=== PATIENT | female | born 1960 | race Caucasian/White ===

== ENCOUNTER 2021-01-04 09:51 | Emergency (ER) | payer MEDICARE, SELFPAY ==
--- NOTE | 2021-01-04 11:20 | ED_ITS ---
HPI - Abdominal Pain General Chief Complaint: Abdominal Pain Stated Complaint: PELVIC PAIN CONSTIPATION Time Seen by Provider: 01/04/21 11:19 Source: patient Mode of arrival: ambulatory Limitations: no limitations History of Present Illness HPI narrative: 60 y/o female with history of irritable bowel syndrome, HTN, TEODORO, HLD, vertigo, fibromyalgia, gastritis who presents to the ED with lower abdominal pain and constipation for the last 1 week. She reports constant rectal pressure and lower abdominal pain with intermittent cramping and worsening pain. She last had a BM 1 week ago and it was normal. She developed pain 5 days ago. She contacted her GI doctor at [facility] yesterday when she still hadn't moved her bowels and he instructed her to take Milk of Magnesia. She was up at 2am this morning with cramping pain. She is passing gas. She reports some intermittnet nausea but no vomiting. MD elicited complaint: abdominal pain Pertinent past history: constipation Onset (ago): day(s) (5) Pain Consistency: constant Location: RLQ, LLQ and pelvis Severity: moderate Quality: cramping and aching Radiation: none Migration to: no migration Exacerbating factors: eating Relieving factors: nothing Context: history of similar episodes Associated symptoms: nausea and constipation Related Data Patient : No Allergies Allergy/AdvReac Type Severity Reaction Status Date / Time butalbital [From FIORINAL] Allergy Unknown HIVES Verified 01/04/21 11:25 doxycycline [DOXYCYCLINE] Allergy Unknown HIVES Verified 01/04/21 11:25 lorazepam [From ATIVAN] Allergy Unknown HIVES Verified 01/04/21 11:25 morphine [MORPHINE] Allergy Unknown HIVES Verified 01/04/21 11:25 Doxycycline Calcium Allergy Unknown Hives Uncoded 01/04/21 11:25 Review of Systems Review of Systems Constitutional: No Fever, + Chills (when in severe pain) ENT/Mouth: No sore throat, No Swallowing Difficulty Cardiovascular: No Chest Pain, No SOB, No Orthopnea, No Edema Respiratory: No Cough, No Sputum, No Wheezing, No dyspnea Gastrointestinal: + Nausea, No Vomiting, No Diarrhea, + abdominal Pain Genitourinary: No Dysuria, No Urinary Frequency, No Hematuria Musculoskeletal: No joint pain, No Myalgias Neuro: No Weakness, No Numbness, No Dizziness, No Headache Psych: + Anxiety/Panic, No Depression Heme/Lymph: No Bruising, No Lymphadenopathy Endocrine: No Polyuria, + Polydipsia Physical Exam Vital Signs: Vital Signs: Last Vital Signs Temp 98.7 F 01/04/21 11:26 Pulse 60 01/04/21 11:26 Resp 18 01/04/21 11:26 BP 129/75 01/04/21 11:26 Pulse Ox 99 01/04/21 11:26 Body Mass Index 34.9 Appearance: Alert. Oriented X3. No acute distress. Eyes: Pupils equal, round and reactive to light. ENT: Pharynx normal. Neck: Normal inspection. Neck supple. CVS: Normal heart rate and rhythm. Pulses normal. Respiratory: No respiratory distress. Breath sounds normal. Abdomen: normal inspection, well healed lower longitudial scar consistent with prior hysterectomy. Soft and with mild lower abdominal tenderness to deep palpation. normal +BS x4 XANDER: small external hemorrhoid, non-bleeding. normal sphincter tone, firm stool ball palpated deep in rectal vault, able to evacuate small amount of brown stool. Skin: Skin warm and dry. Normal skin color. Normal skin turgor. No rashes. Extremities: No lower extremity edema. Neuro: Oriented X 3. No motor deficit. No sensory deficit. Course Course Course Narrative: 60 y/o female presenting with constipation x1 week with lower abdominal pain. +flatus with normal bowel sounds on exam. Doubt small bowel obstruction. Will check basic labs, give Fleet enema and oral laxative/stool softners. Will reassess. Reevaluation(s) Reevaluation #1: Patient had a very large bowel movement and feels much better. Her pain is resolved. She was found to have K+ 3.2 - give oral repletion in the ED. She is stable for discharge and will f/u with her GI and PCP for further management. MDM - Abdominal Pain Lab Data Result diagrams: 01/04/21 12:19 01/04/21 12:19 Labs: Lab Results 01/04/21 Range/Units 12:19 WBC 13.0 H (4.8-10.8) X10*3/uL RBC 4.55 (4.20-5.50) X10*6/uL Hgb 13.9 (12.0-16.0) g/dl Hct 40.5 (37-47) % MCV 89.0 (80-98) fL MCH 30.5 (27.0-33.0) pg MCHC 34.3 (31.0-35.0) g/dl RDW 12.6 (11.0-16.0) % Plt Count 254 (160-400) X10*3/uL MPV 9.1 L (9.4-12.3) fL Immature Gran % (Auto) 0.3 (0.0-0.4) % Neut % (Auto) 60.2 (45-73) % Lymph % (Auto) 30.2 (20-40) % [place] % (Auto) 7.9 (2-11) % Eos % (Auto) 1.0 (0-4) % Baso % (Auto) 0.4 (0-2) % Lymph # (Auto) 3.9 (1.2-4.9) X10*3/uL [place] # (Auto) 1.0 (0.1-1.2) X10*3/uL Eos # (Auto) 0.1 (0.0-0.4) X10*3/uL Baso # (Auto) 0.1 (0.0-0.2) X10*3/uL Abs Immat Gran (auto) 0.04 H (0.00-0.03) X10*3/uL Absolute Neuts (auto) 7.8 (2.0-8.3) X10*3/uL Absolute Nucleated RBC 0.000 (0.0-0.012) X10*3/uL Nucleated RBC % (auto) 0.0 (0.0-0.2) /100WBC Discharge Plan Discharge Clinical Impression: Hypokalemia Constipation Qualifiers: Constipation type: unspecified constipation type Qualified Code(s): K59.00 - Constipation, unspecified Patient Disposition: Home, Self-Care Instructions: Constipation (ED), Hypokalemia (ED) Additional Instructions: Increase your fiber intake and drink plenty of water. Your potassium level with slightly low, you were given oral replacements while in the ER. Follow up with your doctor for routine blood work. Recommend starting Miralax 17 grams every morning. Follow up with your GI doctor. If you have recurrent abdominal pain or any other concerning symptoms come back to the ER for further evaluation. PMFSH Past Medical History Medical History (Updated 01/04/21 @ 13:06 by MARGARETTE Lozada) Fibromyalgia HTN (hypertension) IBS (irritable bowel syndrome) Sleep apnea Social History Social History Advance Directives: No Advance Directives Information Provided: No
[2021-01-04 11:26] VITALS: BP 129/75; PULSE 60; RESP 18; TEMP 37.1; O2SAT 99; BMI 34.9
[2021-01-04] MEDS: polyethylene glycoL 3350 17 GM POWD.PACK PO (12:24)
[2021-01-04] MEDS: Docusate Sodium 100 MG CAPSULE 200 MG PO (12:24)
[2021-01-04 12:25] LABS: Basophils Absolute Auto 0.1 X10*3/uL (0.0-0.2); Basophils Percent Auto 0.4 % (0-2); Eosinophils Absolute Auto 0.1 X10*3/uL (0.0-0.4); Hematocrit 40.5 % (37-47); Hemoglobin 13.9 g/dl (12.0-16.0); Imm Gran Abs Auto 0.04 X10*3/uL (0.00-0.03); Imm Gran Pct Auto 0.3 % (0.0-0.4); Lymphocytes Absolute Auto 3.9 X10*3/uL (1.2-4.9); Lymphocytes Percent Auto 30.2 % (20-40); MANUAL DIFF FLAG NO; Mean Corpuscular HGB Conc 34.3 g/dl (31.0-35.0); Mean Corpuscular Hemoglobin 30.5 pg (27.0-33.0); Mean Platelet Volume 9.1 fL (9.4-12.3); Monocytes Percent Auto 7.9 % (2-11); Neutrophils Absolute Auto 7.8 X10*3/uL (2.0-8.3); Neutrophils Percent Auto 60.2 % (45-73); Platelet Count 254 X10*3/uL (160-400); Red Blood Count 4.55 X10*6/uL (4.20-5.50); Red Cell Distribution Width 12.6 % (11.0-16.0)
[2021-01-04] MEDS: Sodium Phosphate,Mono-Dibasic 133 ML ENEMA PR (12:25)
[2021-01-04 12:54] LABS: Alanine Aminotransferase 20 U/L (0-31); Albumin Level 4.2 g/dL (3.5-5.0); Alkaline Phosphatase 81 U/L (39-117); Anion Gap 12 (12-20); Aspartate Amino Transferase 16 U/L (5-31); Bilirubin Direct 0.4 mg/dL (0.0-0.5); Bilirubin Total 0.9 mg/dL (0.0-1.0); Blood Urea Nitrogen 17 mg/dL (9-16); Calcium 9.1 mg/dL (8.4-10.2); Carbon Dioxide 30 mmol/L (22-29); Chloride 101 mmol/L (96-108); Creatinine Clr Calc Pharmacy 89.9; Estimated Glomerular Filt Rate > 60; Glucose Random 100 mg/dL (60-115); Magnesium 2.6 mg/dL (1.6-2.6); Potassium 3.2 mmol/L (3.3-5.1); Sodium 140 mmol/L (135-145); Total Protein 6.9 g/dL (6.5-8.0)
[2021-01-04] MEDS: Potassium Chloride ER 20 MEQ TAB.ER.PRT 60 MEQ PO (13:32)
== END 2021-01-04 13:35 | disposition home or self-care (01) ==
PROVIDERS: Physician Assistant; Emergency Provider Emergency Medicine Emergency Medical Services; PCP Internal Medicine
DX: E87.6 Hypokalemia (principal); K59.00 Constipation, unspecified; M79.7 Fibromyalgia; R10.2 Pelvic and perineal pain; G47.33 Obstructive sleep apnea (adult) (pediatric); I10 Essential (primary) hypertension
CPT/HCPCS: 36415; 80048; 80076; 83735; 85025; 99283; 99284

== ENCOUNTER 2021-01-29 08:22 | Emergency (ER) | payer MEDICARE, SELFPAY ==
--- NOTE | ~2021-01-29 | XR_ITS ---
EXAMINATION: XR CHEST CLINICAL INFORMATION: Chest pain. COMPARISON: Chest done on 03/14/2020. TECHNIQUE: Frontal view of the chest was obtained. FINDINGS: Linear pleural parenchymal opacity at left lung base, appears similar to prior study. The remainder of the lung irby appear clear. The cardiac mediastinal silhouette is within normal limit. There is no pleural effusion or pneumothorax present. The visualized upper abdomen is unremarkable. XR/XR chest 1V IMPRESSION: No radiographic evidence of any acute cardiopulmonary disease, essentially remains stable since 03/14/2020.
[2021-01-29 08:34] VITALS: BP 151/77; BP 178/92; PULSE 54; PULSE 60; RESP 18; TEMP 36.8; O2SAT 98; O2SAT 99; BMI 35.7
[2021-01-29 08:47] LABS: Glucose, Whole Blood 121 mg/dL (60-115)
--- NOTE | 2021-01-29 08:50 | ECG_ITS ---
Test Reason : SOB Blood Pressure : / mmHG Vent. Rate : 051 BPM Atrial Rate : 051 BPM P-R Int : 168 ms QRS Dur : 090 ms QT Int : 458 ms P-R-T Axes : 011 -19 -08 degrees QTc Int : 422 ms Sinus bradycardia Nonspecific ST and T wave abnormality Abnormal ECG When compared with ECG of 14-MAR-2020 09:27, No significant change was found Referred By: Denae Barr Electronically Signed By:HERRERA MARQUES
[2021-01-29 08:59] VITALS: BP 130/74; PULSE 52
[2021-01-29 09:00] VITALS: BP 129/75; PULSE 53
[2021-01-29 09:01] VITALS: BP 136/79; PULSE 53
[2021-01-29 09:11] VITALS: BP 136/79; PULSE 54; RESP 18; O2SAT 99
[2021-01-29 09:11] LABS: MANUAL DIFF FLAG NO
[2021-01-29 09:14] LABS: Basophils Percent Auto 0.3 % (0-2); Eosinophils Absolute Auto 0.1 X10*3/uL (0.0-0.4); Eosinophils Percent Auto 0.8 % (0-4); Hematocrit 42.6 % (37-47); Hemoglobin 14.7 g/dl (12.0-16.0); Imm Gran Abs Auto 0.04 X10*3/uL (0.00-0.03); Imm Gran Pct Auto 0.4 % (0.0-0.4); Lymphocytes Percent Auto 33.3 % (20-40); Mean Corpuscular HGB Conc 34.5 g/dl (31.0-35.0); Mean Corpuscular Hemoglobin 30.7 pg (27.0-33.0); Mean Corpuscular Volume 88.9 fL (80-98); Mean Platelet Volume 9.2 fL (9.4-12.3); Monocytes Absolute Auto 0.8 X10*3/uL (0.1-1.2); Monocytes Percent Auto 8.6 % (2-11); Neutrophils Absolute Auto 5.2 X10*3/uL (2.0-8.3); Neutrophils Percent Auto 56.6 % (45-73); Platelet Count 244 X10*3/uL (160-400); Red Blood Count 4.79 X10*6/uL (4.20-5.50); Red Cell Distribution Width 12.8 % (11.0-16.0); White Blood Count 9.1 X10*3/uL (4.8-10.8)
[2021-01-29 09:15] LABS: Glucose Urine UA NEG (NEG); Leukocyte Esterase Urine NEG (NEG); Nitrite Urine NEG (NEG); PH 6.5 (5.0-8.0); Specific Gravity - Urine <= 1.005 (1.005-1.025); Urine Blood NEG (NEG); Urine Ketones NEG (NEG); Urine Protein NEG (NEG-TRACE)
[2021-01-29 09:17] LABS: Appearance Urine CLEAR; Color Urine STRAW
--- NOTE | 2021-01-29 09:20 | ED_ITS ---
HPI - General Adult General Chief complaint: General Medical Stated complaint: htn Time Seen by Provider: 01/29/21 08:36 Source: patient and EMS Mode of arrival: EMS History of Present Illness HPI narrative: 60-year-old female with a past medical history of fibromyalgia, hypertension, IBS, sleep apnea, BIBA complaining of shortness of breath, mild chest tightness, nausea and heaviness in arms/shoulders S/P getting off treadmill last night. Also reports polydipsia and urinary frequency. Reports generalized fatigue. Denies fever, cough, abdominal pain, vomiting, diarrhea, dysuria/hematuria, numbness/tingling, headache, vision changes Onset (ago): day(s) Related Data Allergies Allergy/AdvReac Type Severity Reaction Status Date / Time butalbital [From FIORINAL] Allergy Unknown HIVES Verified 01/04/21 11:25 doxycycline [DOXYCYCLINE] Allergy Unknown HIVES Verified 01/04/21 11:25 lorazepam [From ATIVAN] Allergy Unknown HIVES Verified 01/04/21 11:25 morphine [MORPHINE] Allergy Unknown HIVES Verified 01/04/21 11:25 Doxycycline Calcium Allergy Unknown Hives Uncoded 01/04/21 11:25 Review of Systems Review of Systems: Constitutional: No Fever, No Chills, No Night Sweats, + Fatigue, No Malaise Eyes: No Vision Changes Cardiovascular: + Chest Pain, + SOB, No Dyspnea on Exertion, No Orthopnea, No Edema, + Palpitations Respiratory: No Cough, No Sputum Gastrointestinal: + Nausea, No Vomiting, No Diarrhea, No Constipation, No Abdominal pain Genitourinary: No irregular bleeding, No Dysuria,+Urinary Frequency, No Hematuria,+ Urgency, No Flank Pain, No Urinary Flow Changes, No Hesitancy Musculoskeletal: No joint pain, No Myalgias, No Joint Swelling Skin: No Skin Lesions, No rash Neuro: + Weakness, No Numbness, No Paresthesias, No Loss of Consciousness, + off balance, No Headache Yes all other systems are reviewed and are negative [facility] Past Medical History Attestation statement: The following information was validated with the patient. Medical History (Updated 01/29/21 @ 11:01 by MARGARETTE Hong) Fibromyalgia HTN (hypertension) IBS (irritable bowel syndrome) Sleep apnea Social History Social History Alcohol intake: never Smoking Status: Unknown if ever smoked Use of substances other than those prescribed or required for medical reasons: No Advance Directives: No Advance Directives Information Provided: No Physical Exam Vital Signs: Vital Signs: Last Vital Signs Temp 98.3 F 01/29/21 08:34 Pulse 52 01/29/21 10:15 Resp 16 01/29/21 10:15 BP 160/70 H 01/29/21 10:15 Pulse Ox 96 01/29/21 10:15 Body Mass Index 35.7 Const: General: cooperative, healthy appearing, comfortable, no acute distress and well developed Orientation/consciousness: patient oriented x3 Limitations: no limitations HENMT: Head: Yes normal to inspection Ears: hearing grossly normal bilaterally General nose exam: Normal external nose present Face and sinus: Yes normal facial exam Eyes: General: appearance normal, both eyes and all related structures Pupils: Equal, round and reactive pupils present EOM: EOMs intact bilaterally Neck: Neck: Yes normal visual inspection and Yes no meningeal signs Resp: Effort & Inspection: normal respiratory effort Auscultation: clear to auscultation bilaterally, no rales, no rhonchi and no wheezes Cardio: Rate: regular rate Heart sounds: S1 normal heart sound present and S2 normal heart sound present GI: Inspection: Yes normal to inspection Palpation (GI): Soft to palpation, nontender, no guarding and not rigid Skin: Rashes: no rashes Wounds: no wounds Neuro: General: patient oriented x3, gait normal, tone normal, moves all extremities, no meningeal signs, no focal motor deficits and CN's II-XI intact bilaterally Cranial nerves: Yes Equal, round and reactive pupils present Gait exam (Neuro): Normal gait present Motor exam (neuro): 5/5 motor strength present throughout, Pronator motor function not present and no tremor noted Coordination: [id number] test normal and Romberg test negative Extrem: General: Yes normal to inspection, Yes no pedal edema and Yes no calf tenderness Course Course Course Narrative: -labs unremarkable. Troponin negative. Urine negative. COVID-19/influenza/RSV negative XR chest 1V IMPRESSION: No radiographic evidence of any acute cardiopulmonary disease, essentially remains stable since 03/14/2020. -orthostatic vital signs negative. -patient became very agitated/upset after I discussed her normal labs and imaging without having diagnosis for her symptoms. I discussed do not always find diagnosis in the ED however rule out life-threatening/dangerous diagnosis'. I offered repeat troponin to rule out ACS, although unllikely as symptom onset was greater than 6 hours, patient was agreeable but would like to be discharged immediately after lab draw and not wait for results. I will call her if lab result is abnormal Patient came up to provider desk after discharge instructions discussed very upset, ripped out IV, refusing to sign stormed out of ED -Lab and imaging results discussed with patient including worrisome signs and symptoms and strict return precautions and close follow-up with PCP. Medical Decision Making MDM Narrative Medical decision making narrative: 60-year-old female with a past medical history of fibromyalgia, hypertension, IBS, sleep apnea, BIBA complaining of shortness of breath, mild chest tightness, nausea and heaviness in arms/shoulders S/P getting off treadmill last night. Also reports polydipsia and urinary frequency. On exam VSS, NAD/well-appearing, exam nonfocal. Concern for ACS vs arrhythmia/metabolic abnormalities. Unlikely infectious etiology/PE or CVA Plan: EKG, labs, UA, CXR, orthostatics, re-evaluated Lab Data Result diagrams: 01/29/21 09:06 01/29/21 09:06 Labs: Lab Results 01/29/21 01/29/21 01/29/21 Range/Units 08:43 09:01 09:06 WBC 9.1 (4.8-10.8) X10*3/uL RBC 4.79 (4.20-5.50) X10*6/uL Hgb 14.7 (12.0-16.0) g/dl Hct 42.6 (37-47) % MCV 88.9 (80-98) fL MCH 30.7 (27.0-33.0) pg MCHC 34.5 (31.0-35.0) g/dl RDW 12.8 (11.0-16.0) % Plt Count 244 (160-400) X10*3/uL MPV 9.2 L (9.4-12.3) fL Immature Gran % (Auto) 0.4 (0.0-0.4) % Neut % (Auto) 56.6 (45-73) % Lymph % (Auto) 33.3 (20-40) % [place] % (Auto) 8.6 (2-11) % Eos % (Auto) 0.8 (0-4) % Baso % (Auto) 0.3 (0-2) % Lymph # (Auto) 3.0 (1.2-4.9) X10*3/uL [place] # (Auto) 0.8 (0.1-1.2) X10*3/uL Eos # (Auto) 0.1 (0.0-0.4) X10*3/uL Baso # (Auto) 0.0 (0.0-0.2) X10*3/uL Abs Immat Gran (auto) 0.04 H (0.00-0.03) X10*3/uL Absolute Neuts (auto) 5.2 (2.0-8.3) X10*3/uL Absolute Nucleated RBC 0.000 (0.0-0.012) X10*3/uL Nucleated RBC % (auto) 0.0 (0.0-0.2) /100WBC Hold Blue Top Sodium (135-145) mmol/L Potassium (3.3-5.1) mmol/L Chloride (96-108) mmol/L Carbon Dioxide (22-29) mmol/L Anion Gap (12-20) BUN (9-16) mg/dL Creatinine (0.5-1.4) mg/dL Estim Creat Clear Calc Estimated GFR POC Glucose 121 H (60-115) mg/dL Random Glucose (60-115) mg/dL Calcium (8.4-10.2) mg/dL Magnesium (1.6-2.6) mg/dL Total Bilirubin (0.0-1.0) mg/dL Direct Bilirubin (0.0-0.5) mg/dL AST (5-31) U/L ALT (0-31) U/L Alkaline Phosphatase (39-117) U/L Troponin I High Sens (<3.5-17.0) ng/L B-Natriuretic Peptide (<100) pg/mL Total Protein (6.5-8.0) g/dL Albumin (3.5-5.0) g/dL TSH (0.32-4.0) uIU/mL Urine Color STRAW Urine Appearance CLEAR Urine pH 6.5 (5.0-8.0) Ur Specific [place] <= 1.005 (1.005-1.025) Urine Protein NEG (NEG-TRACE) MG/DL Urine Glucose (UA) NEG (NEG) MG/DL Urine Ketones NEG (NEG) MG/DL Urine Blood NEG (NEG) Urine Nitrite NEG (NEG) Ur Leukocyte Esterase NEG (NEG) Coronavirus (PCR) (Negative) Influenza Type A (PCR) (Negative) Influenza Type B (PCR) (Negative) RSV RNA Qual (PCR) (Negative) 01/29/21 01/29/21 01/29/21 Range/Units 09:06 09:06 09:06 WBC (4.8-10.8) X10*3/uL RBC (4.20-5.50) X10*6/uL Hgb (12.0-16.0) g/dl Hct (37-47) % MCV (80-98) fL MCH (27.0-33.0) pg MCHC (31.0-35.0) g/dl RDW (11.0-16.0) % Plt Count (160-400) X10*3/uL MPV (9.4-12.3) fL Immature Gran % (Auto) (0.0-0.4) % Neut % (Auto) (45-73) % Lymph % (Auto) (20-40) % [place] % (Auto) (2-11) % Eos % (Auto) (0-4) % Baso % (Auto) (0-2) % Lymph # (Auto) (1.2-4.9) X10*3/uL [place] # (Auto) (0.1-1.2) X10*3/uL Eos # (Auto) (0.0-0.4) X10*3/uL Baso # (Auto) (0.0-0.2) X10*3/uL Abs Immat Gran (auto) (0.00-0.03) X10*3/uL Absolute Neuts (auto) (2.0-8.3) X10*3/uL Absolute Nucleated RBC (0.0-0.012) X10*3/uL Nucleated RBC % (auto) (0.0-0.2) /100WBC Hold Blue Top SEE NOTE Sodium 139 (135-145) mmol/L Potassium 3.4 (3.3-5.1) mmol/L Chloride 101 (96-108) mmol/L Carbon Dioxide 29 (22-29) mmol/L Anion Gap 12 (12-20) BUN 15 (9-16) mg/dL Creatinine 0.78 (0.5-1.4) mg/dL Estim Creat Clear Calc 86.4 Estimated GFR > 60 POC Glucose (60-115) mg/dL Random Glucose 110 (60-115) mg/dL Calcium 9.6 (8.4-10.2) mg/dL Magnesium 1.9 (1.6-2.6) mg/dL Total Bilirubin 1.0 (0.0-1.0) mg/dL Direct Bilirubin 0.3 (0.0-0.5) mg/dL AST 22 (5-31) U/L ALT 30 (0-31) U/L Alkaline Phosphatase 83 (39-117) U/L Troponin I High Sens < 3.5 (<3.5-17.0) ng/L B-Natriuretic Peptide 12 (<100) pg/mL Total Protein 7.3 (6.5-8.0) g/dL Albumin 4.5 (3.5-5.0) g/dL TSH 1.77 (0.32-4.0) uIU/mL Urine Color Urine Appearance Urine pH (5.0-8.0) Ur Specific [place] (1.005-1.025) Urine Protein (NEG-TRACE) MG/DL Urine Glucose (UA) (NEG) MG/DL Urine Ketones (NEG) MG/DL Urine Blood (NEG) Urine Nitrite (NEG) Ur Leukocyte Esterase (NEG) Coronavirus (PCR) (Negative) Influenza Type A (PCR) (Negative) Influenza Type B (PCR) (Negative) RSV RNA Qual (PCR) (Negative) 01/29/21 Range/Units 09:06 WBC (4.8-10.8) X10*3/uL RBC (4.20-5.50) X10*6/uL Hgb (12.0-16.0) g/dl Hct (37-47) % MCV (80-98) fL MCH (27.0-33.0) pg MCHC (31.0-35.0) g/dl RDW (11.0-16.0) % Plt Count (160-400) X10*3/uL MPV (9.4-12.3) fL Immature Gran % (Auto) (0.0-0.4) % Neut % (Auto) (45-73) % Lymph % (Auto) (20-40) % [place] % (Auto) (2-11) % Eos % (Auto) (0-4) % Baso % (Auto) (0-2) % Lymph # (Auto) (1.2-4.9) X10*3/uL [place] # (Auto) (0.1-1.2) X10*3/uL Eos # (Auto) (0.0-0.4) X10*3/uL Baso # (Auto) (0.0-0.2) X10*3/uL Abs Immat Gran (auto) (0.00-0.03) X10*3/uL Absolute Neuts (auto) (2.0-8.3) X10*3/uL Absolute Nucleated RBC (0.0-0.012) X10*3/uL Nucleated RBC % (auto) (0.0-0.2) /100WBC Hold Blue Top Sodium (135-145) mmol/L Potassium (3.3-5.1) mmol/L Chloride (96-108) mmol/L Carbon Dioxide (22-29) mmol/L Anion Gap (12-20) BUN (9-16) mg/dL Creatinine (0.5-1.4) mg/dL Estim Creat Clear Calc Estimated GFR POC Glucose (60-115) mg/dL Random Glucose (60-115) mg/dL Calcium (8.4-10.2) mg/dL Magnesium (1.6-2.6) mg/dL Total Bilirubin (0.0-1.0) mg/dL Direct Bilirubin (0.0-0.5) mg/dL AST (5-31) U/L ALT (0-31) U/L Alkaline Phosphatase (39-117) U/L Troponin I High Sens (<3.5-17.0) ng/L B-Natriuretic Peptide (<100) pg/mL Total Protein (6.5-8.0) g/dL Albumin (3.5-5.0) g/dL TSH (0.32-4.0) uIU/mL Urine Color Urine Appearance Urine pH (5.0-8.0) Ur Specific [place] (1.005-1.025) Urine Protein (NEG-TRACE) MG/DL Urine Glucose (UA) (NEG) MG/DL Urine Ketones (NEG) MG/DL Urine Blood (NEG) Urine Nitrite (NEG) Ur Leukocyte Esterase (NEG) Coronavirus (PCR) NEGATIVE (Negative) Influenza Type A (PCR) NEGATIVE (Negative) Influenza Type B (PCR) NEGATIVE (Negative) RSV RNA Qual (PCR) NEGATIVE (Negative) ECG Data Attestation: I personally reviewed and interpreted this ECG as follows: Prior ECG tracings: available for review Interpretation: EKG sinus bradycardia with rate of 51. Unchanged from priors. No STEMI Discharge Plan Discharge Clinical Impression: Shortness of breath, Chest tightness Patient Disposition: Home, Self-Care Instructions: Shortness of Breath (ED) Additional Instructions: Your blood work and chest x-ray were reassuring today in the ED. You tested negative for COVID-19. It is important that he follow up with her primary care doctor's well as Cardiology. If her symptoms persist or worsen, you have constant worsening shortness of breath, chest discomfort, or heaviness feeling in her arms return to the ED immediately. Make sure staying hydrated at home. Referrals: Jude Melo MD [Primary Care Provider] - 2 days Hamlet Alexander MD [Physician] - 5 days
[2021-01-29] MEDS: 0.9 % Sodium Chloride 1,000 ML 999 ML IVCONT (09:37)
[2021-01-29 09:43] LABS: Alanine Aminotransferase 30 U/L (0-31); Albumin Level 4.5 g/dL (3.5-5.0); Alkaline Phosphatase 83 U/L (39-117); Anion Gap 12 (12-20); Aspartate Amino Transferase 22 U/L (5-31); Bilirubin Direct 0.3 mg/dL (0.0-0.5); Blood Urea Nitrogen 15 mg/dL (9-16); Calcium 9.6 mg/dL (8.4-10.2); Carbon Dioxide 29 mmol/L (22-29); Chloride 101 mmol/L (96-108); Creatinine Clr Calc Pharmacy 86.4; Estimated Glomerular Filt Rate > 60; Glucose Random 110 mg/dL (60-115); Magnesium 1.9 mg/dL (1.6-2.6); Potassium 3.4 mmol/L (3.3-5.1); Sodium 139 mmol/L (135-145); Total Protein 7.3 g/dL (6.5-8.0)
[2021-01-29 09:49] LABS: B Type Natriuretic Peptide 12 pg/mL (<100); Troponin-I High Sensitivity < 3.5 ng/L (<3.5-17.0)
[2021-01-29 10:11] LABS: Influenza A PCR NEGATIVE (Negative); Influenza B PCR NEGATIVE (Negative); Resp Syncy Virus RNA Qual PCR NEGATIVE (Negative); SARS COV2 PCR INHOUSE NEGATIVE (Negative)
[2021-01-29 10:15] VITALS: BP 160/70; PULSE 52; RESP 16; O2SAT 96
[2021-01-29 10:15] LABS: TSH reflex Free T4 1.77 uIU/mL (0.32-4.0)
[2021-01-29] MEDS: ondansetron HCL 4 MG/2 ML VIAL IVPUSH (11:17)
--- NOTE | 2021-01-29 11:52 | PC.NURSE ---
Pt asking to leave before trop. results, c/o continued nausea and headache- offered further medication to help symptoms, declined stated You guys can never figure out whats wrong with me...I'll take me nausea and pain to my home .Encouraged to stay. Pt is in no apparent distress, skin w/p/d, rr even and unlabored, moving all extremities, no active vomiting, aox4. Provider aware of pt status. Pending discharge.
--- NOTE | 2021-01-29 12:12 | PC.NURSE ---
This nurse went into patients room with her discharge paperwork. When discussing discharge instructions patient became agitated removed her IV on her own and refused to sign discharge paperwork. Patient went up to provider to discuss discharge paperwork then left department to outside of hospital. Patient appeared in no apparent distress, respirations even and unlabored. Gait steady while leaving.
[2021-01-29 12:29] LABS: Troponin-I High Sensitivity < 3.5 ng/L (<3.5-17.0)
== END 2021-01-29 12:16 | disposition home or self-care (01) ==
PROVIDERS: Physician Assistant; Emergency Provider Emergency Medicine; PCP Internal Medicine
DX: R06.02 Shortness of breath (principal); R07.9 Chest pain, unspecified; Z20.822 Contact with and (suspected) exposure to COVID-19; I10 Essential (primary) hypertension
CPT/HCPCS: 0241U; 36415; 71045; 80048; 80076; 81003; 82947; 83735; 83880; 84443; 84484; 85025; 93005; 96361; 96374; 99284; J2405

== ENCOUNTER 2021-05-08 15:28 | Emergency (ER) | payer MEDICARE, SELFPAY ==
--- NOTE | ~2021-05-08 | XR_ITS ---
EXAMINATION: XR FOOT, LEFT CLINICAL INFORMATION: Blunt trauma to the left foot. Bruised fourth and fifth toes. COMPARISON: None TECHNIQUE: AP, lateral, and oblique views of the left foot. FINDINGS: There is no evidence of acute fracture at this time. Bones are in normal alignment. Mild soft tissue swelling is noted over the fifth toe and fifth MTP joint region. No significant abnormality of the bones or joints is demonstrated. No evidence of soft tissue air or radiopaque foreign body. XR/XR foot LT min 3V IMPRESSION: No evidence of acute osseous abnormality in the left foot with specific attention to the fourth and fifth toes at this time.
[2021-05-08 15:31] VITALS: BP 106/63; PULSE 66; RESP 18; TEMP 36.6; O2SAT 95; BMI 36.0
--- NOTE | 2021-05-08 16:25 | ED.LOWEXIN ---
HPI - Extremity Injury (Lower) General Chief Complaint: Extremity Injury, Lower Stated Complaint: foot injury Time Seen by Provider: 05/08/21 16:25 History of Present Illness HPI Narrative: Patient complains of left foot pain as well as left 4th and 5th toe pain after dropping a weight on the left foot and toes this morning, no numbness weakness or tingling Related Data Allergies Allergy/AdvReac Type Severity Reaction Status Date / Time butalbital [From FIORINAL] Allergy Unknown HIVES Verified 01/04/21 11:25 doxycycline [DOXYCYCLINE] Allergy Unknown HIVES Verified 01/04/21 11:25 lorazepam [From ATIVAN] Allergy Unknown HIVES Verified 01/04/21 11:25 morphine [MORPHINE] Allergy Unknown HIVES Verified 01/04/21 11:25 Doxycycline Calcium Allergy Unknown Hives Uncoded 01/04/21 11:25 Review of Systems Review of Systems: Positive for left foot and left 4th and 5th toe pain Negatives are no fever no chills no fainting no feeling faint no headache no neck pain no back pain no numbness weakness or tingling no skin rash no laceration Yes all other systems are reviewed and are negative [facility] Past Medical History Source: nursing notes reviewed Medical History (Updated 05/09/21 @ 00:01 by Background Datrino) Fibromyalgia HTN (hypertension) IBS (irritable bowel syndrome) Sleep apnea Social History Social History Alcohol intake: never Advance Directives: Yes Advance Directives Information Provided: No Advance Directives on File: No Patient : No Physical Exam Vital Signs: Vital Signs: Last Vital Signs Temp 97.8 F 05/08/21 15:31 Pulse 66 05/08/21 15:31 Resp 18 05/08/21 15:31 BP 106/63 05/08/21 15:31 Pulse Ox 95 05/08/21 15:31 Body Mass Index 36.0 General appearance no distress Head is normocephalic atraumatic Neck is supple Respiratory no acute distress Extremities the left foot has tenderness with some ecchymosis over the distal dorsal foot and left 5th and 4th toes are tender with mild ecchymoses, they have full range of motion and neurovascular intact distal and skin is normal without wound Other extremities normal Course Course Course Narrative: X-ray was negative of left foot and toes, patient is ambulatory with a limp and refused crutches She is discharged and will follow with Orthopedics if needed Discharge Plan Discharge Clinical Impression: Contusion of foot, left Patient Disposition: Home, Self-Care Additional Instructions: X-rays were negative and did not show any fracture A bruised foot will usually improved within several days If not improving or any concerns follow with orthopedist Return to the ER any time and any changed or worse condition Referrals: Dwight Sutherland MD [Physician] - 2 days (Left foot injury) Interventions: ED Discharge Assessment Last Done: 05/08/21 16:51 Discharge Date/Time: 05/08/21 16:51
== END 2021-05-08 16:51 | disposition home or self-care (01) ==
PROVIDERS: Emergency Provider Emergency Medicine Emergency Medical Services; PCP Internal Medicine
DX: S90.32XA Contusion of left foot, initial encounter (principal); I10 Essential (primary) hypertension; X58.XXXA Exposure to other specified factors, initial encounter; Y93.9 Activity, unspecified; Y92.9 Unspecified place or not applicable; Y99.9 Unspecified external cause status
CPT/HCPCS: 73630; 99283

== ENCOUNTER 2021-08-30 01:55 | Emergency (ER) | payer MEDICARE, SELFPAY ==
--- NOTE | ~2021-08-30 | XR_ITS ---
EXAMINATION: XR CHEST CLINICAL INFORMATION: Cough COMPARISON: 01/29/2021 TECHNIQUE: 2 views of the chest were obtained. FINDINGS: The lungs are well expanded. There is no focal consolidation, edema, or effusion. No pneumothorax. The cardiomediastinal silhouette is within normal limits. No acute osseous abnormality. XR/XR chest 2V IMPRESSION: Clear lungs.
[2021-08-30 01:58] VITALS: BP 133/78; PULSE 58; RESP 16; TEMP 37.1; O2SAT 99; BMI 36.0
--- NOTE | 2021-08-30 02:59 | ED_ITS ---
HPI - Back Pain/Injury General Chief Complaint: Back Pain/Injury Stated Complaint: back & neck pain Time Seen by Provider: 08/30/21 02:45 Source: patient Mode of arrival: ambulatory History of Present Illness HPI Narrative: 60-year-old female with atraumatic presentation of mid back and shoulder pain after driving approximately 200 miles yesterday. She denies that this is been associated with any fever, chills, sore throat, new cough and states that she has had similar problems before. She denies any headache, dizziness, shortness of breath, chest pain/palpitations. She is up-to-date on COVID-19 vaccine. Related Data Previous Rx's Medication Instructions Recorded cyclobenzaprine 10 mg tablet 10 mg PO BEDTIME PRN #3 tab 08/30/21 ketorolac 10 mg tablet 10 mg PO Q6H PRN 5 Days #20 tab 08/30/21 Allergies Allergy/AdvReac Type Severity Reaction Status Date / Time butalbital [From FIORINAL] Allergy Unknown HIVES Verified 08/30/21 01:58 doxycycline [DOXYCYCLINE] Allergy Unknown HIVES Verified 08/30/21 01:58 lorazepam [From ATIVAN] Allergy Unknown HIVES Verified 08/30/21 01:58 morphine [MORPHINE] Allergy Unknown HIVES Verified 08/30/21 01:58 Doxycycline Calcium Allergy Unknown Hives Uncoded 01/04/21 11:25 Review of Systems Review of Systems: Pertinent positives and negatives as stated in HPI 10 point review of systems is otherwise negative. PMFSH Past Medical History Source: nursing notes reviewed Medical History Fibromyalgia HTN (hypertension) IBS (irritable bowel syndrome) Sleep apnea Social History Social History Alcohol intake: never Advance Directives: No Advance Directives Information Provided: Yes Physical Exam Vital Signs: Vital Signs: Last Vital Signs Temp 98.7 F 08/30/21 01:58 Pulse 58 08/30/21 01:58 Resp 16 08/30/21 01:58 BP 133/78 08/30/21 01:58 Pulse Ox 99 08/30/21 01:58 Body Mass Index 36.0 VITAL SIGNS: Reviewed. GENERAL: Well developed, well nourished, in no acute distress. HEAD: Normocephalic/atraumatic EYES: PERRLA, EOMI OROPHARYNX: no oral lesions noted, posterior pharynx clear NECK: Supple, no adenopathy LUNGS: Normal breath sounds. No adventitious sounds or accessory muscle use. SpO2<99> CARDIOVASCULAR: Regular rate and rhythm without noted murmurs, no JVD or lower extremity edema. ABDOMEN: Soft, non-tender, non-distended with bowel sounds BACK: There is no midline vertebral tenderness or step-offs noted, there is no thoracic paraspinal tenderness on palpation, however there is tenderness on palpation across bilateral shoulders into base of neck SKIN: Inspection of the skin reveals no rashes, NEUROLOGIC: Alert and oriented x 4. Strength and sensation to light touch were grossly intact x 4. Course Course Course Narrative: 60-year-old female with history and clinical presentation consistent with muscle strain/spasm likely secondary to long car ride and low clinical suspicion for pneumonia/PE. Patient was provided with combination analgesics as well as muscle relaxant. On re-evaluation and review of all investigations patient is feeling much better and there are no acute findings. She will be discharged home in stable condition with medications for muscle spasm. Discharge Plan Discharge Clinical Impression: Muscle spasm Patient Disposition: Home, Self-Care Instructions: Muscle Spasm (ED) Additional Instructions: Follow-up with your primary care provider in the next 2-3 days for re- evaluation. Tylenol 1000 mg, orally, every 6 hours as needed for pain control. Do not exceed 4000 mg within 24 hours. Lidocaine patch, these are available [id number] and should be apply to area of maximal tenderness as directed on the outside packaging. Return to the ER for acute worsening of symptoms. Prescriptions: New ketorolac 10 mg tablet 10 mg PO Q6H PRN (Reason: pain) 5 Days Qty: 20 RF: 0 cyclobenzaprine 10 mg tablet 10 mg PO BEDTIME PRN (Reason: muscle spasm) Qty: 3 RF: 0 Referrals: Jude Melo MD [Primary Care Provider] - 2 days
[2021-08-30] MEDS: Acetaminophen 325 MG TABLET 975 MG PO (03:04)
[2021-08-30] MEDS: Cyclobenzaprine HCl 5 MG TABLET PO (03:05)
[2021-08-30] MEDS: Ketorolac Tromethamine 15 MG/ML VIAL IM (03:06)
[2021-08-30] MEDS: Lidocaine 4 % Patch ADH..PATCH 1 PATCH TRANSDERMA (03:09)
== END 2021-08-30 03:53 | disposition home or self-care (01) ==
PROVIDERS: Emergency Provider Student in an Organized Health Care Education/Training Program; PCP Internal Medicine
DX: M62.830 Muscle spasm of back (principal); R07.89 Other chest pain; M54.50 Low back pain, unspecified; M54.2 Cervicalgia; Z79.899 Other long term (current) drug therapy
CPT/HCPCS: 71046; 96372; 99283; 99284; J1885

== ENCOUNTER 2021-09-01 10:54 | Outpatient (REF) | payer MEDICARE, SELFPAY | END 2021-09-01 10:55 | disposition home or self-care (01) | LOC: HO.LAB 10:54 | PROVIDERS: PCP Internal Medicine; Visit Provider Internal Medicine | DX: Z20.822 Contact with and (suspected) exposure to COVID-19 (principal) | CPT/HCPCS: C9803; U0003; U0005 ==

== ENCOUNTER 2021-09-07 19:39 | Emergency (ER) | payer MEDICARE, SELFPAY ==
--- NOTE | 2021-09-07 | ECG_ITS ---
Test Reason : DIZZYNESS Blood Pressure : / mmHG Vent. Rate : 053 BPM Atrial Rate : 053 BPM P-R Int : 174 ms QRS Dur : 096 ms QT Int : 476 ms P-R-T Axes : 016 -23 -13 degrees QTc Int : 446 ms Sinus bradycardia Left axis deviation Nonspecific T wave abnormality Abnormal ECG When compared with ECG of 29-JAN-2021 08:54, No significant change was found Referred By: Generic ED Physician Electronically Signed By:ITZEL MATTSON MD
--- NOTE | ~2021-09-07 | XR_ITS ---
EXAMINATION: XR CHEST CLINICAL INFORMATION: Chest pain COMPARISON: Chest x-ray August 30, 2021 TECHNIQUE: Frontal portable view of the chest was obtained. 9:08 PM FINDINGS: Lung volume low. There is no acute abnormality. No pulmonary vascular congestion. No focal consolidation, pleural effusion or pneumothorax. Cardiac and mediastinal contours are normal. XR/XR chest 1V IMPRESSION: No acute abnormality of chest
[2021-09-07 19:46] VITALS: BP 164/86; PULSE 54; RESP 16; TEMP 36.8; O2SAT 96
[2021-09-07 19:52] VITALS: BP 164/86; PULSE 53; RESP 16; TEMP 36.9; O2SAT 97; BMI 38.9
[2021-09-07 19:58] VITALS: PULSE 60; O2SAT 98
[2021-09-07 20:00] VITALS: BP 171/80; PULSE 52
[2021-09-07 20:11] VITALS: BP 161/77; PULSE 55
[2021-09-07 20:12] VITALS: BP 128/76; PULSE 60
--- NOTE | 2021-09-07 20:39 | ED.GENADULT ---
HPI - General Adult General Chief complaint: Dizziness Stated complaint: COVID+/DIZZINESS Time Seen by Provider: 09/07/21 19:53 Source: patient Mode of arrival: ambulatory Limitations: no limitations History of Present Illness HPI narrative: nausea, weakness, since this afternoon. Patient was COVID positive on the 7th after exposure, but this is the first time she is feeling sick since becoming positive. Onset (ago): hour(s) Severity: moderate Associated symptoms: fever/chills, loss of appetite, nausea/vomiting and weakness Related Data Previous Rx's Medication Instructions Recorded cyclobenzaprine 10 mg tablet 10 mg PO BEDTIME PRN #3 tab 08/30/21 ketorolac 10 mg tablet 10 mg PO Q6H PRN 5 Days #20 tab 08/30/21 Allergies Allergy/AdvReac Type Severity Reaction Status Date / Time butalbital [From FIORINAL] Allergy Unknown HIVES Verified 08/30/21 01:58 doxycycline [DOXYCYCLINE] Allergy Unknown HIVES Verified 08/30/21 01:58 lorazepam [From ATIVAN] Allergy Unknown HIVES Verified 08/30/21 01:58 morphine [MORPHINE] Allergy Unknown HIVES Verified 08/30/21 01:58 Doxycycline Calcium Allergy Unknown Hives Uncoded 01/04/21 11:25 Review of Systems Constitutional: Constitutional: Reports no additional constitutional complaints Eyes: Eyes: Reports no additional eye complaints ENT: Denies dizziness Cardiovascular: Cardiovascular: Reports no additional cardiovascular complaints Respiratory: Respiratory: Reports as per HPI Gastrointestinal: Gastrointestinal: Reports no additional gastrointestinal complaints Genitourinary: Genitourinary: Reports no additional female genitourinary complaints Musculoskeletal: Musculoskeletal: Reports no additional musculoskeletal complaints Integumentary/Breasts: Skin/Breast: Denies rash Neurologic: Reports system reviewed and no additional complaints, except as documented, Denies dizziness and Denies Sensory deficit (Neuro) Psychiatric: Psychiatric: Denies anxiety [facility] Past Medical History Medical History Fibromyalgia HTN (hypertension) IBS (irritable bowel syndrome) Sleep apnea Social History Social History Alcohol intake: never Advance Directives: No Patient : No Physical Exam Vital Signs: Vital Signs: Last Vital Signs Temp 98.4 F 09/07/21 19:52 Pulse 60 09/07/21 20:12 Resp 16 09/07/21 19:52 BP 128/76 09/07/21 20:12 Pulse Ox 97 09/07/21 19:52 Body Mass Index 38.9 Const: General: healthy appearing Nutritional Appearance: average body habitus Orientation/consciousness: oriented to person and patient oriented x3 Limitations: no limitations HENMT: Head: Yes normal to inspection Ears: external ears normal General nose exam: Normal external nose present Mouth: Normal oral and palatal mucosa present and oropharynx normal Throat: Yes posterior oropharynx normal Eyes: General: appearance normal, both eyes and all related structures Neck: Other: supple Neck: Yes normal visual inspection Chest: Chest palpation & inspection: normal inspection of the chest Resp: Auscultation: clear to auscultation bilaterally Cardio: Jugular venous distension: no JVD Rate: regular rate Rhythm: regular rhythm Heart sounds: S1 normal heart sound present and S2 normal heart sound present GI: Inspection: Yes normal to inspection Palpation (GI): Soft to palpation, nontender and No hepatosplenomegaly present Auscultation: normal bowel sounds : General: Yes no CVA tenderness Back/Spine/Pelvis: Back: no CVA tenderness Skin: General skin exam: no rashes or lesions noted Neuro: General: oriented to person and patient oriented x3 Cranial nerves: Yes CN's II-XII intact bilaterally Motor exam (neuro): 5/5 motor strength present throughout Sensory Exam: No Sensory deficit (Neuro) Extrem: General: Yes normal to inspection Psych: Appearance: grossly normal Course Reevaluation(s) Reevaluation #1: patient with fatigue and myalgias likely secondary to her COVID infection. Currently COVID negative, patient with UTI on UA will treat with Macrobid Time: 22:36 Medical Decision Making Lab Data Result diagrams: 09/07/21 21:39 09/07/21 21:39 Labs: Lab Results 09/07/21 09/07/21 09/07/21 Range/Units 20:02 21:39 21:39 WBC 10.6 (4.8-10.8) X10*3/uL RBC 4.47 (4.20-5.50) X10*6/uL Hgb 13.8 (12.0-16.0) g/dl Hct 38.6 (37-47) % MCV 86.4 (80-98) fL MCH 30.9 (27.0-33.0) pg MCHC 35.8 H (31.0-35.0) g/dl RDW 12.4 (11.0-16.0) % Plt Count 246 (160-400) X10*3/uL MPV 9.2 L (9.4-12.3) fL Immature Gran % (Auto) 1.0 H (0.0-0.4) % Neut % (Auto) 58.4 (45-73) % Lymph % (Auto) 31.4 (20-40) % [place] % (Auto) 7.8 (2-11) % Eos % (Auto) 1.0 (0-4) % Baso % (Auto) 0.4 (0-2) % Lymph # (Auto) 3.3 (1.2-4.9) X10*3/uL [place] # (Auto) 0.8 (0.1-1.2) X10*3/uL Eos # (Auto) 0.1 (0.0-0.4) X10*3/uL Baso # (Auto) 0.0 (0.0-0.2) X10*3/uL Abs Immat Gran (auto) 0.11 H (0.00-0.03) X10*3/uL Absolute Neuts (auto) 6.2 (2.0-8.3) X10*3/uL Absolute Nucleated RBC 0.000 (0.0-0.012) X10*3/uL Nucleated RBC % (auto) 0.0 (0.0-0.2) /100WBC Troponin I High Sens < 3.5 (<3.5-17.0) ng/L Urine Color Urine Appearance Urine pH (5.0-8.0) Ur Specific [place] (1.005-1.025) Urine Protein (NEG-TRACE) MG/DL Urine Glucose (UA) (NEG) MG/DL Urine Ketones (NEG) MG/DL Urine Blood (NEG) Urine Nitrite (NEG) Ur Leukocyte Esterase (NEG) Urine RBC (0) /HPF Urine WBC (0-4) /HPF Ur Squamous Epith Cells /LPF Urine Bacteria /LPF COVID-19 ([facility]) Negative (Negative) COVID-19 Clin Com See Note 09/07/21 Range/Units 21:39 WBC (4.8-10.8) X10*3/uL RBC (4.20-5.50) X10*6/uL Hgb (12.0-16.0) g/dl Hct (37-47) % MCV (80-98) fL MCH (27.0-33.0) pg MCHC (31.0-35.0) g/dl RDW (11.0-16.0) % Plt Count (160-400) X10*3/uL MPV (9.4-12.3) fL Immature Gran % (Auto) (0.0-0.4) % Neut % (Auto) (45-73) % Lymph % (Auto) (20-40) % [place] % (Auto) (2-11) % Eos % (Auto) (0-4) % Baso % (Auto) (0-2) % Lymph # (Auto) (1.2-4.9) X10*3/uL [place] # (Auto) (0.1-1.2) X10*3/uL Eos # (Auto) (0.0-0.4) X10*3/uL Baso # (Auto) (0.0-0.2) X10*3/uL Abs Immat Gran (auto) (0.00-0.03) X10*3/uL Absolute Neuts (auto) (2.0-8.3) X10*3/uL Absolute Nucleated RBC (0.0-0.012) X10*3/uL Nucleated RBC % (auto) (0.0-0.2) /100WBC Troponin I High Sens (<3.5-17.0) ng/L Urine Color YELLOW Urine Appearance CLEAR Urine pH 7.0 (5.0-8.0) Ur Specific [place] 1.010 (1.005-1.025) Urine Protein NEG (NEG-TRACE) MG/DL Urine Glucose (UA) NEG (NEG) MG/DL Urine Ketones NEG (NEG) MG/DL Urine Blood NEG (NEG) Urine Nitrite NEG (NEG) Ur Leukocyte Esterase 3+ H (NEG) Urine RBC 1-4 (0) /HPF Urine WBC 10-14 H (0-4) /HPF Ur Squamous Epith Cells TRACE /LPF Urine Bacteria TRACE /LPF COVID-19 ([facility]) (Negative) COVID-19 Clin Com Imaging Data Chest x-ray: Radiologist's impression: FINDINGS: Lung volume low. There is no acute abnormality. No pulmonary vascular congestion. No focal consolidation, pleural effusion or pneumothorax. Cardiac and mediastinal contours are normal. XR/XR chest 1V IMPRESSION: No acute abnormality of chest ? ECG Data Attestation: I personally reviewed and interpreted this ECG as follows: Interpretation: sinus old inferior, non specific twave changes, no ischemia Discharge Plan Discharge Clinical Impression: COVID UTI (urinary tract infection) Qualifiers: Urinary tract infection type: site unspecified Hematuria presence: without hematuria Qualified Code(s): N39.0 - Urinary tract infection, site not specified Patient Disposition: Home, Self-Care Instructions: COVID-19 (Coronavirus Disease 2019) (ED), Urinary Tract Infection in Women (ED) Prescriptions: No Action ketorolac 10 mg tablet 10 mg PO Q6H PRN (Reason: pain) 5 Days Qty: 20 RF: 0 cyclobenzaprine 10 mg tablet 10 mg PO BEDTIME PRN (Reason: muscle spasm) Qty: 3 RF: 0 Referrals: Physician,Unknown J [Primary Care Provider] - 5 days
[2021-09-07 20:41] LABS: COVID-19 Test Negative (Negative)
[2021-09-07] MEDS: Ketorolac Tromethamine 15 MG/ML VIAL 30 MG IVPUSH (21:35)
[2021-09-07] MEDS: ondansetron HCL 4 MG/2 ML VIAL IVPUSH (21:35)
[2021-09-07] MEDS: 0.9 % Sodium Chloride 1,000 ML 999 ML IVCONT (21:36)
[2021-09-07 21:44] LABS: MANUAL DIFF FLAG NO
[2021-09-07 21:45] LABS: Basophils Percent Auto 0.4 % (0-2); Eosinophils Absolute Auto 0.1 X10*3/uL (0.0-0.4); Hematocrit 38.6 % (37-47); Hemoglobin 13.8 g/dl (12.0-16.0); Imm Gran Abs Auto 0.11 X10*3/uL (0.00-0.03); Lymphocytes Absolute Auto 3.3 X10*3/uL (1.2-4.9); Lymphocytes Percent Auto 31.4 % (20-40); Mean Corpuscular HGB Conc 35.8 g/dl (31.0-35.0); Mean Corpuscular Hemoglobin 30.9 pg (27.0-33.0); Mean Corpuscular Volume 86.4 fL (80-98); Mean Platelet Volume 9.2 fL (9.4-12.3); Monocytes Absolute Auto 0.8 X10*3/uL (0.1-1.2); Monocytes Percent Auto 7.8 % (2-11); Neutrophils Absolute Auto 6.2 X10*3/uL (2.0-8.3); Neutrophils Percent Auto 58.4 % (45-73); Platelet Count 246 X10*3/uL (160-400); Red Blood Count 4.47 X10*6/uL (4.20-5.50); Red Cell Distribution Width 12.4 % (11.0-16.0); White Blood Count 10.6 X10*3/uL (4.8-10.8)
[2021-09-07 21:49] LABS: Appearance Urine CLEAR; Color Urine YELLOW; Glucose Urine UA NEG (NEG); Leukocyte Esterase Urine 3+ (NEG); Nitrite Urine NEG (NEG); UACC Culture Trigger YES; Urine Blood NEG (NEG); Urine Ketones NEG (NEG); Urine Protein NEG (NEG-TRACE)
[2021-09-07 22:04] LABS: Troponin-I High Sensitivity < 3.5 ng/L (<3.5-17.0)
[2021-09-07 22:09] LABS: Bacteria Urine TRACE /LPF; Squamous Epithelial Cell Urine TRACE /LPF
[2021-09-07 22:37] LABS: Anion Gap 9 (12-20); Blood Urea Nitrogen 16 mg/dL (9-16); Calcium 9.9 mg/dL (8.4-10.2); Carbon Dioxide 31 mmol/L (22-29); Chloride 104 mmol/L (96-108); Creatinine Clr Calc Pharmacy 87.3; Estimated Glomerular Filt Rate > 60; Glucose Random 108 mg/dL (60-115); Potassium 3.8 mmol/L (3.3-5.1); Sodium 140 mmol/L (135-145)
[2021-09-07] MEDS: Nitrofurantoin Monohyd/M-Cryst 100 MG CAPSULE PO (23:10)
== END 2021-09-07 23:11 | disposition home or self-care (01) ==
PROVIDERS: Internal Medicine; Emergency Provider Emergency Medicine
DX: U07.1 COVID-19 (principal); N39.0 Urinary tract infection, site not specified; I10 Essential (primary) hypertension
CPT/HCPCS: 36415; 71045; 80048; 81001; 84484; 85025; 87086; 87147; 87635; 93005; 96361; 96374; 96375; 99284; J1885; J2405

== ENCOUNTER 2022-10-20 09:46 | Emergency (ER) | payer MEDICARE, SELFPAY ==
--- NOTE | ~2022-10-20 | XR_ITS ---
EXAMINATION: XR CHEST, 2 VIEWS CLINICAL INFORMATION: Cough COMPARISON: 09/07/2021 TECHNIQUE: PA and lateral views of the chest were obtained. FINDINGS: Lungs are clear. No consolidation, pneumothorax, or pleural effusion. Cardiac and mediastinal contours are normal. Pulmonary vasculature is unremarkable. Trachea is midline. Osseous structures are unremarkable. XR/XR chest 2V IMPRESSION: No acute cardiopulmonary findings.
--- NOTE | 2022-10-20 09:50 | ECG_ITS ---
Test Reason : SOB Blood Pressure : / mmHG Vent. Rate : 063 BPM Atrial Rate : 063 BPM P-R Int : 162 ms QRS Dur : 092 ms QT Int : 438 ms P-R-T Axes : 040 -22 -01 degrees QTc Int : 448 ms Normal sinus rhythm Low voltage QRS Cannot rule out Anterior infarct (cited on or before 20-OCT-2022) Nonspecific T wave abnormality Anterolateral leads Abnormal ECG When compared with ECG of 07-SEP-2021 19:56, T wave inversion more evident in Anterolateral leads Referred By: Dixie Sanders Electronically Signed By:ITZEL MATTSON MD
--- NOTE | 2022-10-20 09:50 | ED.GENADULT ---
HPI - General Adult General Chief complaint: Dyspnea Stated complaint: difficulty breathing Time Seen by Provider: 10/20/22 09:49 Source: patient Mode of arrival: ambulatory Limitations: no limitations History of Present Illness HPI narrative: Pt is a 62 yo female assigned at w/ PMHx significant for emphysema, HTN, and hyperlipidemia presenting w/ 5 days of flu-like symptoms. She reports that her symptoms started 5 days ago w/ a cough productive of green mucous. She endorses a fever for which she is controlling w/ Tylenol. She reports that since the onset of symptoms, she has developed worsening cough. She endorses mild lightheadedness associated w/ coughing fits but states that this symptom resolves when the cough stops. She denies any N/V/D, body aches, chest pain, headaches, or known exposures to sick contacts. She endorses a 40 pack year hx for which she quit smoking in 2014. She denies any hx of clotting disorders, recent surgery or trauma, or use of estrogen in any form. Onset (ago): day(s) (4) Severity: mild Severity scale (1-10): 2 Quality: dull Pain Consistency: constant Relieving factors: medication (Tylenol) Exacerbating factors: other (coughing) Associated symptoms: fever/chills and shortness of breath Treatments prior to arrival: other (Tylenol ) Related Data Previous Rx's Medication Instructions Recorded cyclobenzaprine 10 mg tablet 10 mg PO BEDTIME PRN muscle spasm 08/30/21 #3 tabs ketorolac 10 mg tablet 10 mg PO Q6H PRN pain 5 days #20 08/30/21 tabs nitrofurantoin 100 mg PO BID #10 caps 09/07/21 monohydrate/macrocrystals 100 mg capsule (Macrobid) azithromycin 250 mg tablet See Rx Instructions PO .COMPLEX #6 10/20/22 (Zithromax Z-Jerel) tabs Allergies Allergy/AdvReac Type Severity Reaction Status Date / Time butalbital [From FIORINAL] Allergy Unknown HIVES Verified 08/30/21 01:58 doxycycline [DOXYCYCLINE] Allergy Unknown HIVES Verified 08/30/21 01:58 lorazepam [From ATIVAN] Allergy Unknown HIVES Verified 08/30/21 01:58 morphine [MORPHINE] Allergy Unknown HIVES Verified 08/30/21 01:58 Doxycycline Calcium Allergy Unknown Hives Uncoded 01/04/21 11:25 Review of Systems Constitutional: Constitutional: Reports chills, Denies difficulty sleeping, Reports fever(s), Denies headache(s) and Denies night sweats Eyes: Eyes: Reports no additional eye complaints, Denies blurry vision, Denies change in vision, Denies diplopia, Denies eye discharge and Denies eye pain ENT: Denies dizziness, Denies dry mouth, Denies headache(s) and Denies nasal discharge Cardiovascular: Cardiovascular: Reports no additional cardiovascular complaints, Denies chest pain, Reports lightheadedness (associated w/ coughing), Denies Loss of Consciousness and Denies dyspnea Respiratory: Respiratory: Reports no additional respiratory complaints, Reports cough and Denies dyspnea Gastrointestinal: Gastrointestinal: Reports no additional gastrointestinal complaints, Denies abdominal pain, Denies melena, Denies hematochezia, Denies change in bowel habits and Denies change in stool character Genitourinary: Genitourinary: Denies hematuria, Denies dysuria and Denies urinary urgency Musculoskeletal: Musculoskeletal: Reports no additional musculoskeletal complaints Neurologic: Denies dizziness and Denies headache(s) Psychiatric: Psychiatric: Reports no additional psychiatric complaints Endocrine: Endocrine: Reports no additional endocrine complaints Hematologic/Lymphatic: Hematologic/Lymphatic: Reports no additional hematologic/lymphatic complaints Allergic/Immunologic: Allergic/Immunologic: Reports no additional allergic/immunologic complaints PMFSH Past Medical History Attestation statement: The following information was validated with the patient. Source: old records reviewed Medical History Fibromyalgia HTN (hypertension) IBS (irritable bowel syndrome) Sleep apnea Social History Social History Alcohol intake: never Smoked in Last 30 Days: No Advance Directives: No Patient : No Physical Exam ED Vital Signs: Vital Signs - 24 hr 10/20/22 09:53 10/20/22 10:45 Temperature 98.6 F 98.8 F Pulse Rate 77 70 Respiratory Rate 22 H 16 Blood Pressure 142/76 H 127/70 Pulse Oximetry 95 96 Oxygen Delivery Method Room Air Room Air BMI result Body Mass Index 42.4 Const General: healthy appearing and no acute distress Nutritional Appearance: well nourished Orientation/consciousness: patient oriented x3 Limitations: no limitations HENMT Head: Yes normal to inspection Ears: hearing grossly normal bilaterally General nose exam: Normal external nose present Face and sinus: Yes normal facial exam Mouth: Normal oral and palatal mucosa present Eyes General: appearance normal, both eyes and all related structures Conjunctivae: conjunctivae normal Neck Neck: Yes normal visual inspection Lymphatic: no lymphadenopathy noted Resp Effort & Inspection: normal respiratory effort, able to speak in complete sentences and Actively coughing Auscultation: diminished lung sounds Cardio Jugular venous distension: no JVD Rate: regular rate Rhythm: regular rhythm Heart sounds: S1 normal heart sound present and S2 normal heart sound present Peripheral pulses: Peripheral pulses 2+ throughout GI Inspection: Yes normal to inspection Palpation (GI): Soft to palpation, not firm, nontender, no guarding, not rigid and No Ascites present Auscultation: normal bowel sounds Skin General skin exam: no rashes or lesions noted Neuro General: patient oriented x3 Medical Decision Making MDM Narrative Medical decision making narrative: Patient is a 62 year old assigned female at with a history of Emphysema presenting to the emergency department today with a cough. Patient's physical exam was unremarkable. Patient's blood work was unremarkable. Patient's EKG was unremarkable. Patient's chest x-ray showed no acute process. Patient was positive for RSV. I explained my physical exam findings as well as all test results to the patient. I answered all questions asked by the patient. I stressed the importance of the patient taking her medication as prescribed. I stressed the importance of the patient following up with her primary care provider. I stressed the importance of the patient returning to the emergency department immediately if her symptoms were to worsen or if she were to develop any dizziness, shortness of breath, difficulty breathing, chest pain, blurry vision, loss of vision, nausea, vomiting, abdominal pain, fever, chills, back pain, or any other complaints. Patient verbalized agreement and understanding with this treatment plan and discharge. Medical Records Medical records reviewed: Yes I reviewed the patient's medical records. Lab Data Lab results reviewed: Yes I reviewed the patient's lab results. Result diagrams: 10/20/22 11:24 10/20/22 11:24 Labs: Lab Results 10/20/22 10/20/22 10/20/22 Range/Units 11:24 11:24 11:24 WBC 6.7 (4.8-10.8) X10*3/uL RBC 4.64 (4.20-5.50) X10*6/uL Hgb 14.2 (12.0-16.0) g/dl Hct 40.8 (37.0-47.0) % MCV 87.9 (80.0-98.0) fL MCH 30.6 (27.0-33.0) pg MCHC 34.8 (31.0-35.0) g/dl RDW 13.0 (11.0-16.0) % Plt Count 207 (160-400) X10*3/uL MPV 9.3 L (9.4-12.3) fL Immature Gran % (Auto) 0.6 H (0.0-0.4) % Neut % (Auto) 43.9 L (45-73) % Lymph % (Auto) 40.6 H (20-40) % Bremer % (Auto) 11.9 H (2-11) % Eos % (Auto) 2.4 (0-4) % Baso % (Auto) 0.6 (0-2) % Lymph # (Auto) 2.7 (1.2-4.9) X10*3/uL Bremer # (Auto) 0.8 (0.1-1.2) X10*3/uL Eos # (Auto) 0.2 (0.0-0.4) X10*3/uL Baso # (Auto) 0.0 (0.0-0.2) X10*3/uL Abs Immat Gran (auto) 0.04 H (0.00-0.03) X10*3/uL Absolute Neuts (auto) 2.9 (2.0-8.3) x10*3/uL Absolute Nucleated RBC 0.000 (0.0-0.012) X10*3/uL Nucleated RBC % (auto) 0.0 (0.0-0.2) /100WBC Sodium 140 (135-145) mmol/L Potassium 3.5 (3.3-5.1) mmol/L Chloride 102 (96-108) mmol/L Carbon Dioxide 25 (22-29) mmol/L Anion Gap 17 (12-20) BUN 20 H (9-16) mg/dL Creatinine 0.74 (0.5-1.4) mg/dL Estim Creat Clear Calc 97.5 Estimated GFR > 60 Random Glucose 102 (60-115) mg/dL Calcium 9.6 (8.4-10.2) mg/dL Magnesium 1.9 (1.6-2.6) mg/dL Total Bilirubin 0.8 (0.0-1.0) mg/dL AST 24 (5-31) U/L ALT 38 H (0-31) U/L Alkaline Phosphatase 90 (39-117) U/L Troponin I High Sens < 3.5 (<3.5-17.0) ng/L Total Protein 6.7 (6.5-8.0) g/dL Albumin 4.1 (3.5-5.0) g/dL Influenza Type A (PCR) (Negative) Influenza Type B (PCR) (Negative) RSV RNA Qual (PCR) (Negative) SARS-CoV-2 RNA (RT-PCR) (Negative) 10/20/22 Range/Units 11:24 WBC (4.8-10.8) X10*3/uL RBC (4.20-5.50) X10*6/uL Hgb (12.0-16.0) g/dl Hct (37.0-47.0) % MCV (80.0-98.0) fL MCH (27.0-33.0) pg MCHC (31.0-35.0) g/dl RDW (11.0-16.0) % Plt Count (160-400) X10*3/uL MPV (9.4-12.3) fL Immature Gran % (Auto) (0.0-0.4) % Neut % (Auto) (45-73) % Lymph % (Auto) (20-40) % Bremer % (Auto) (2-11) % Eos % (Auto) (0-4) % Baso % (Auto) (0-2) % Lymph # (Auto) (1.2-4.9) X10*3/uL Bremer # (Auto) (0.1-1.2) X10*3/uL Eos # (Auto) (0.0-0.4) X10*3/uL Baso # (Auto) (0.0-0.2) X10*3/uL Abs Immat Gran (auto) (0.00-0.03) X10*3/uL Absolute Neuts (auto) (2.0-8.3) x10*3/uL Absolute Nucleated RBC (0.0-0.012) X10*3/uL Nucleated RBC % (auto) (0.0-0.2) /100WBC Sodium (135-145) mmol/L Potassium (3.3-5.1) mmol/L Chloride (96-108) mmol/L Carbon Dioxide (22-29) mmol/L Anion Gap (12-20) BUN (9-16) mg/dL Creatinine (0.5-1.4) mg/dL Estim Creat Clear Calc Estimated GFR Random Glucose (60-115) mg/dL Calcium (8.4-10.2) mg/dL Magnesium (1.6-2.6) mg/dL Total Bilirubin (0.0-1.0) mg/dL AST (5-31) U/L ALT (0-31) U/L Alkaline Phosphatase (39-117) U/L Troponin I High Sens (<3.5-17.0) ng/L Total Protein (6.5-8.0) g/dL Albumin (3.5-5.0) g/dL Influenza Type A (PCR) NEGATIVE (Negative) Influenza Type B (PCR) NEGATIVE (Negative) RSV RNA Qual (PCR) POSITIVE A (Negative) SARS-CoV-2 RNA (RT-PCR) NEGATIVE (Negative) Imaging Data Chest x-ray: Attestation: I personally reviewed and interpreted this imaging study as follows: My impression: No acute process. Radiologist's impression: EXAMINATION: XR CHEST, 2 VIEWS CLINICAL INFORMATION: Cough COMPARISON: 09/07/2021 TECHNIQUE: PA and lateral views of the chest were obtained. FINDINGS: Lungs are clear. No consolidation, pneumothorax, or pleural effusion. Cardiac and mediastinal contours are normal. Pulmonary vasculature is unremarkable. Trachea is midline. Osseous structures are unremarkable. XR/XR chest 2V IMPRESSION: No acute cardiopulmonary findings. Dictated By: n Signed By: Electronically signed by n 10/20/22 1030 ECG Data Attestation: I personally reviewed and interpreted this ECG as follows: Prior ECG tracings: available for review Interpretation: Vent. Rate: 063 BPM ? ? Atrial Rate: 063 BPM P-R Int: 162 ms? QRS Dur: 092 ms QT Int: 438 ms ? ? ? P-R-T Axes: 040 -22 -01 degrees QTc Int: 448 ms ? Normal sinus rhythm Low voltage QRS Cannot rule out Anterior infarct (cited on or before 20-OCT-2022) Nonspecific T wave abnormality Anterolateral leads Abnormal ECG When compared with ECG of 07-SEP-2021 19:56, T wave inversion more evident in Anterolateral leads Electronically Signed By:ITZEL MATTSON MD Dictated By: Caden Mattson MD Signed By: Electronically signed by Caden Mattson MD 10/20/22 1214 Discharge Plan Discharge Clinical Impression: Respiratory syncytial virus (RSV) infection, Emphysema lung Patient Disposition: Home, Self-Care Instructions: Respiratory Syncytial Virus (ED) Additional Instructions: Even though you have a viral infection, you have been given an antibiotic prophylactically to prevent a superimposed bacterial infection. This is the GOLD standard in individuals who suffer from COPD/Asthma/Emphysema. Follow up with your primary care provider. Return to the emergency department immediately if your symptoms worsen or if you develop any dizziness, shortness of breath, difficulty breathing, chest pain, blurry vision, loss of vision, nausea, vomiting, abdominal pain, fever, chills, back pain, or any other complaints. Prescriptions: New azithromycin [Zithromax Z-Jerel] 250 mg tablet See Rx Instructions .ROUTE .COMPLEX Qty: 6 0RF Rx Instructions: For 250 mg dose pack: take 500 mg today (day 1), then 250 mg for 4 days (days 2-5) No Action nitrofurantoin monohyd/m-cryst [Macrobid] 100 mg capsule 100 mg PO BID Qty: 10 0RF Rx Instructions: must administer with a meal/food ketorolac 10 mg tablet 10 mg PO Q6H PRN (Reason: pain) 5 Days Qty: 20 0RF Rx Instructions: Patient received Toradol in the emergency room. cyclobenzaprine 10 mg tablet 10 mg PO BEDTIME PRN (Reason: muscle spasm) Qty: 3 0RF Referrals: Jude Melo MD [Primary Care Provider] - Print Language: Greenlandic
[2022-10-20 09:53] VITALS: BP 142/76; PULSE 77; RESP 22; TEMP 37; O2SAT 95; BMI 42.4
--- OUTSIDE RECORDS SUMMARY | 2022-10-20 10:04 | XMS_ITS | Continuity of Care Document ---
:1960 Author Organization [facility] Adult Address [address] [place] [address]- Care Team Providers Name Role Phone Jude Melo MD Primary Care Physician Encounter [facility] [place] Date(s): 01/07/20 - 01/17/20 [facility] [address] [place] [address]- [facility] Attending Physician: Admtr, [id number] Admitting Physician: Admtr, Ar8 Referring Physician: Admtr, Ar8 Allergies, Adverse Reactions, Alerts Substance Reaction Severity Status naproxen1 rash Active doxycycline rash Active morphine rash Active shellfish throat closed Active Florinef Acetate rash Active Ativan rash Active Onions throat closed Active 1hives Immunizations Given and Recorded Vaccine Date Status Refusal Reason influenza virus vaccine, inactivated 09/15/19 Given influenza virus vaccine, inactivated 09/27/18 Given influenza virus vaccine, inactivated 09/04/17 Given influenza virus vaccine, inactivated 12/19/16 Given tetanus/diphtheria/pertussis, acel(Tdap) 05/12/19 Given tetanus/diphtheria/pertussis, acel(Tdap) 02/04/09 Recorde d pneumococcal 23-valent vaccine 09/04/17 Given pneumococcal 13-valent vaccine 02/13/13 Recorded Medications atenolol-chlorthalidone 100 mg-25 mg oral tablet 1 tablet, By Mouth, Daily, # 90 tablet, 5 Refills, Maintenance, 11/03/19 10:09:12 EST, Tablet, 1 tablet By Mouth Daily, 167.6, cm, 10/21/19 11:33:52 EST, Height, 86.3, kg, 12/03/17 17:06:32 EST, Dry Weight Start Date: 11/03/19 Status: OrderedAutoCPAP with heated humidification from [employer] AutoCPAP 14-19 with heated humidification from [employer], See Instructions, # 1 each, Refills 0, Tot. Refills 0, Maintenance, use overnight and naps from [employer], 03/21/18 10:53:58 EDT, Compound Start Date: 03/21/18 Status: OrderedCeleBREX 200 mg oral capsule 1 capsule = 200 mg, By Mouth, Daily, # 30 capsule, 11 Refills, Maintenance, 04/10/19 12:34:44 EDT, Capsule Start Date: 04/10/19 Status: OrderedColace sodium 100 mg oral capsule 100 mg, 1, capsule, By Mouth, 2 times a day, Refills 0, Maintenance, 01/23/19 13:06:44 EST Start Date: 01/23/19 Status: OrderedCymbalta 30 mg oral enteric coated capsule 1 capsule = 30 mg, By Mouth, 2 times a day, # 60 capsule, 11 Refills, Maintenance, 09/15/19 10:47:07EDT, EC Capsule Start Date: 09/15/19 Status: Ordereddicyclomine 10 mg oral capsule 1 capsule = 10 mg, By Mouth, 2 times a day, 0 Refills, Maintenance, 11/22/17 15:21:52 Start Date: 11/22/17 Status: OrderedLipitor 20 mg oral tablet 1 tablet = 20 mg, By Mouth, Daily, # 90 tablet, 3 Refills, Maintenance, Tablet, Route to Pharmacy Electronically, [id number], [facility] [id number] Start Date: 04/10/19 Status: Orderedlosartan 100 mg oral tablet 1 tablet = 100 mg, By Mouth, Daily, # 90 tablet, 3 Refills, Maintenance, 04/10/19 12:34:03 EDT, Tablet Start Date: 04/10/19 Status: OrderedtraMADol 50 mg oral tablet 1 tablet = 50 mg, By Mouth, Every 6 hours, PRN as needed for pain, # 30 tablet, 1 Refills, Maintenance, 09/16/19 14:09:07 EDT, Tablet Start Date: 09/16/19 Status: Ordered Problem List Condition Effective Dates Status Health Status Informant Allergic rhinitis(Confirmed) Active BMI 32.0-32.9,adult(Confirmed) Active Marijuana use(Confirmed) Active Abnormal CT scan of lung(Confirmed) Active Costochondritis(Confirmed) Active Fibromyalgia(Confirmed) Active Gastritis(Confirmed)1 Active History of multiple Active miscarriages(Confirmed) S/P cataract surgery(Confirmed)2 Active H/O colonoscopy(Confirmed)3 Active Hypercholesterolemia(Confirmed) Active Hypertension(Confirmed) Active Internal hemorrhoids(Confirmed)4 Active Irritable bowel syndrome(Confirmed)5 Active Low back pain(Confirmed) Active Cervical cancer(Confirmed)6 Active TEODORO (obstructive sleep Active apnea)(Confirmed) Leg pain, bilateral(Confirmed) Active Pectus excavatum(Confirmed) Active Emphysema of lung(Confirmed)7 Active Keratosis seborrheica(Confirmed)8 Active Ovarian torsion, acquired(Confirmed)9 Active Vertigo(Confirmed) Active 1By EGD 2017.2Performed bilaterally [address] GreenYruomw8Dikvchqbzpf 2014 positive polyps, repeat 18959levi [id number] by Dr. AroraMjzeix8Waraip post hysterectomy 1988.7CT scan [id number] by dermatology, Dr. McgregorRmpqb5Meowkrgq by Dr. Luna Social History Social History Type Response Smoking Status Former smoker; Other: Quit s moking 2014. Approximately 53-41-ixfe-year history of smoking; entered on: 02/16/17 Sex
--- OUTSIDE RECORDS SUMMARY | 2022-10-20 10:04 | XMS_ITS | Continuity of Care Document ---
:1960 Author Organization [facility] Adult Address [address] [place] [address]- Care Team Providers Name Role Phone Jude Melo MD Primary Care Physician Encounter [facility] [place] Date(s): 04/01/21 - 05/01/21 [facility] [address] [place] [address]- Allergies, Adverse Reactions, Alerts Substance Reaction Severity Status naproxen1 rash Active doxycycline rash Active morphine rash Active shellfish throat closed Active Florinef Acetate rash Active Ativan rash Active Onions throat closed Active 1hives Immunizations Given and Recorded Vaccine Date Status Refusal Reason Influenza Virus Vaccine (oldterm) 09/08/20 Recorded influenza virus vaccine, inactivated 09/15/19 Given influenza virus vaccine, inactivated 09/27/18 Given influenza virus vaccine, inactivated 09/04/17 Given influenza virus vaccine, inactivated 12/19/16 Given tetanus/diphtheria/pertussis, acel(Tdap) 05/12/19 Given tetanus/diphtheria/pertussis, acel(Tdap) 02/04/09 Recorde d pneumococcal 23-valent vaccine 09/04/17 Given pneumococcal 13-valent vaccine 02/13/13 Recorded Medications atenolol-chlorthalidone 100 mg-25 mg oral tablet 1 tablet, By Mouth, Daily, # 90 tablet, 1 Refills, Maintenance, 03/25/21 11:44:00 EDT, Tablet, [facility], 1 tablet By Mouth Daily, 167.6, cm, 01/07/21 8:37:00 EST, Height Start Date: 03/25/21 Status: OrderedAutoCPAP 14-19 with heated humidification from [employer] AutoCPAP 14-19 with heated humidification from [employer], See Instructions, # 1 each, Refills 0, Tot. Refills 0, Maintenance, use overnight and naps from [employer], 03/21/18 10:53:58 EDT, Compound Start Date: 03/21/18 Status: OrderedCrestor 10 mg oral tablet 1 tablet = 10 mg, By Mouth, Daily, # 30 tablet, 5 Refills, Maintenance, 09/20/20 16:02:00 EDT, Tablet, [id number], 167.6, cm, 09/17/20 8:34:00 EDT, Height Start Date: 09/20/20 Status: OrderedHISTOPLAX-ORGANIC ALLERGY MEDICATION HISTOPLAX-ORGANIC ALLERGY MEDICATION, Refills 0, Maintenance, 10/25/20 13:57:00 EST, Supply Start Date: 10/25/20 Status: Orderedlosartan 100 mg oral tablet 1 tablet = 100 mg, By Mouth, Daily, # 90 tablet, 1 Refills, Maintenance, 03/25/21 12:11:00 EDT, Tablet, [id number], 167.6, cm, 01/07/21 8:37:00 EST, Height Start Date: 03/25/21 Status: OrderedMethylPREDNISolone Dose Pack 4 mg oral tablet 1 pack/packet, By Mouth, Once, # 21 tablet, 0 Refills, Soft Stop, 04/01/21 9:05:00 EDT, Tablet, [id number], Partial fill upon patient request if the prescription is for a schedule II opioid drug., 167.6, cm, 04/01/21 8:39:00 EDT, Height Start Date: 04/01/21 Status: OrderedProbiotic + Colostrum oral powder for reconstitution 1 pack/packet, By Mouth, Daily, 0 Refills, Maintenance, 02/25/20 8:37:00 EDT Start Date: 02/25/20 Status: Ordered Problem List Condition Effective Dates Status Health Status Informant Allergic rhinitis(Confirmed) Active BMI 32.0-32.9,adult(Confirmed) Active Marijuana use(Confirmed) Active Abnormal CT scan of lung(Confirmed) Active Costochondritis(Confirmed) Active Fibromyalgia(Confirmed) Active Gastritis(Confirmed)1 Active History of multiple Active miscarriages(Confirmed) S/P cataract surgery(Confirmed)2 Active H/O colonoscopy(Confirmed)3 Active History of cervical cancer(Confirmed)4 Active Hypercholesterolemia(Confirmed) Active Hypertension(Confirmed) Active Internal hemorrhoids(Confirmed)5 Active Irritable bowel syndrome(Confirmed)6 Active Low back pain(Confirmed) Active TEODORO (obstructive sleep Active apnea)(Confirmed) Leg pain, bilateral(Confirmed) Active Pectus excavatum(Confirmed) Active Emphysema of lung(Confirmed)7 Active Keratosis seborrheica(Confirmed)8 Active Ovarian torsion, acquired(Confirmed)9 Active Vertigo(Confirmed) Active 1By EGD 2017.2Performed bilaterally [address] GreenMowpal1Jzaiqyapwnd 2014 positive polyps, repeat 25396Dvstbb post hysterectomy 1988.5colo 95734Cvvozjlk by Dr. Arora7CT scan [id number] by dermatology, Dr. McgregorOcucs0Catqumuq by Dr. Luna Social History Social History Type Response Smoking Status Former smoker; Other: Quit s moking 2014. Approximately 16-77-lgos-year history of smoking; entered on: 02/16/17 Sex
--- OUTSIDE RECORDS SUMMARY | 2022-10-20 10:04 | XMS_ITS | Continuity of Care Document ---
:1960 Author Organization [facility] Address [address] [place] [address]- Care Team Providers Name Role Phone Jude Melo MD Primary Care Physician Encounter [facility] [place] Date(s): 09/16/21 - 10/16/21 [facility] [address] [place] [address]- Allergies, Adverse Reactions, Alerts Substance Reaction Severity Status naproxen1 rash Active doxycycline rash Active morphine rash Active shellfish throat closed Active Florinef Acetate rash Active Ativan rash Active Onions throat closed Active 1hives Immunizations Given and Recorded Vaccine Date Status Refusal Reason SARS-CoV-2 (COVID-19) mRNA BNT-162b2 vac 03/03/21 Recorde d SARS-CoV-2 (COVID-19) mRNA BNT-162b2 vac 02/02/21 Recorde d Influenza Virus Vaccine (oldterm) 09/08/20 Recorded influenza [...] tablet, By Mouth, Daily, # 90 tablet, 3 Refills, Maintenance, 05/04/21 9:59:00 EDT, Tablet, [facility], 1 tablet By Mouth Daily, 167.6, cm, 05/04/21 9:45:00 EDT, Height Start Date: 05/04/21 Status: Orderedatorvastatin 10 mg oral tablet 1 tablet = 10 mg, By Mouth, Daily, # 90 tablet, 3 Refills, Maintenance, 05/05/21 11:42:00 EDT, [facility], Partial fill upon patient request if the prescription is for a scheduleII opioid drug., 167.6, cm, 05/04/21 9:45:00 EDT,... Start Date: 05/05/21 Status: OrderedAutoCPAP 14-19 with heated humidification from [employer] AutoCPAP 14-19 with heated humidification from [employer], See Instructions, # 1 each, Refills 0, Tot. Refills 0, Maintenance, use overnight and naps from [employer], 03/21/18 10:53:58 EDT, Compound Start Date: 03/21/18 Status: OrderedHISTOPLAX-ORGANIC ALLERGY MEDICATION HISTOPLAX-ORGANIC ALLERGY MEDICATION, Refills 0, Maintenance, 10/25/20 13:57:00 EST, Supply Start Date: 10/25/20 Status: Orderedlosartan 100 mg oral tablet 1 tablet = 100 mg, By Mouth, Daily, # 90 tablet, 3 Refills, Maintenance, 05/04/21 9:59:00 EDT, Tablet, [facility], 167.6, cm, 05/04/21 9:45:00 EDT, Height Start Date: 05/04/21 Status: OrderedProbiotic + Colostrum oral powder for [...] 1By EGD 2017.2Performed bilaterally [address] GreenPigtve1Acivvqxgqze 2014 positive polyps, repeat 25117Ygrqsw post hysterectomy 1988.5colo 77543Cihtergc by Dr. Arora7CT scan [id number] by dermatology, Dr. McgregorPylbl3Gawvstwm by Dr. Luna Social History Social History Type Response Smoking Status Former smoker; Other: Quit s moking 2014. Approximately 41-90-fifa-year history of smoking; entered on: 02/16/17 Sex
--- OUTSIDE RECORDS SUMMARY | 2022-10-20 10:04 | XMS_ITS | Continuity of Care Document ---
:1960 Author Organization [facility] [address] [place] [address]- Care Team Providers Name Role Phone Lorie YOUNGER, Jude Garcias Primary Care Physician Encounter [facility] Date(s): 07/12/22 - 07/19/[address] [place], [place] [address] Attending Physician: Rojas Degroot MD Referring Physician: Jude Melo MD Allergies, Adverse Reactions, Alerts Substance Reaction Severity Status naproxen1 rash Active doxycycline rash Active morphine rash Active shellfish throat closed Active Florinef Acetate rash Active Ativan rash Active Onions throat closed Active 1hives Immunizations Given and Recorded Vaccine Date Status Refusal Reason SARS-CoV-2 mRNA (mbezxyu-cwqc-ndzqu) vax 03/08/22 Recorde d influenza virus vaccine, inactivated 09/29/21 Recorded influenza virus vaccine, inactivated 09/15/19 Given influenza virus vaccine, inactivated 09/27/18 Given influenza virus vaccine, inactivated 09/04/17 Given influenza virus vaccine, inactivated 12/19/16 Given SARS-CoV-2 (COVID-19) mRNA BNT-162b2 vac 08/28/21 Recorde d SARS-CoV-2 (COVID-19) mRNA BNT-162b2 vac 03/03/21 Recorde d SARS-CoV-2 (COVID-19) mRNA BNT-162b2 vac 02/02/21 Recorde d Influenza Virus Vaccine (oldterm) 09/08/20 Recorded tetanus/diphtheria/pertussis, acel(Tdap) 05/12/19 Given tetanus/diphtheria/pertussis, acel(Tdap) 02/04/09 Recorde d pneumococcal 23-valent vaccine 09/04/17 Given pneumococcal 13-valent vaccine 02/13/13 Recorded Medications atenolol-chlorthalidone 100 mg-25 mg oral tablet 1 tablet, By Mouth, Daily, # 90 tablet, 1 Refills, [facility] WBP, 90, TAKE 1 TABLETDAILY, 167.6, cm, 05/24/22 12:56:00 EDT, Height Start Date: 07/10/22 Status: Orderedatorvastatin 10 mg oral tablet 1 tablet, By Mouth, Daily, # 90 tablet, 1 Refills, [facility] WBP, 167.6, cm, 04/05/22 8:06:00 EDT, Height Start Date: 04/17/22 Status: OrderedAutoCPAP 14-19 with heated humidification from [employer] AutoCPAP 14-19 with heated humidification from [employer], See Instructions, # 1 each, Refills 0, Tot. Refills 0, Maintenance, use overnight and naps from [employer], 03/21/18 10:53:58 EDT, Compound Start Date: 03/21/18 Status: Orderedcyclobenzaprine 5 mg oral tablet See Instructions, Take 1 tablet every 8 hours as needed for muscle spasm, # 21 capsule, 0 Refills, Maintenance, 07/18/22 14:24:00 EDT, Tablet, [id number], Partial fill upon patient request if the prescription is for a schedule II opio... Start Date: 07/18/22 Status: OrderedFlax Seed Oil 0 Refills, Maintenance, 11/03/21 9:19:00 EST, Partial fill upon patient request if the prescription is for a schedule II opioid drug. Start Date: 11/03/21 Status: OrderedProbiotic + Colostrum oral powder for reconstitution 1 pack/packet, By Mouth, Daily, 0 Refills, Maintenance, 02/25/20 8:37:00 EDT Start Date: 02/25/20 Status: Orderedspironolactone 25 mg oral tablet 25 mg, 1, tablet, By Mouth, Daily, # 90 tablet, Refills 0, Tot. Refills 0, Maintenance, 05/09/22 9:55:00 EDT, Route to Pharmacy Electronically, [facility], Partial fill upon patient request if the prescription is for a schedule... Start Date: 05/09/22 Status: Ordered Problem List Condition Effective Dates Status Health Status Informant Allergic rhinitis(Confirmed) Active Obesity (BMI 35.0-39.9 without Active comorbidity)(Confirmed) Marijuana use(Confirmed) Active Abnormal CT scan of lung(Confirmed) Active Costochondritis(Confirmed) Active Glucose intolerance(Confirmed) Active Fibromyalgia(Confirmed) Active Gastritis(Confirmed)1 Active History of multiple Active miscarriages(Confirmed) S/P cataract surgery(Confirmed)2 Active H/O colonoscopy(Confirmed)3 Active History of cervical cancer(Confirmed)4 Active Hypercholesterolemia(Confirmed) Active Hypertension(Confirmed) Active Internal hemorrhoids(Confirmed)5 Active Irritable bowel syndrome(Confirmed)6 Active Low back pain(Confirmed) Active Obese class I(Confirmed) Active TEODORO (obstructive sleep Active apnea)(Confirmed) Leg pain, bilateral(Confirmed) Active Pectus excavatum(Confirmed) Active Emphysema of lung(Confirmed)7 Active Keratosis seborrheica(Confirmed)8 Active Ovarian torsion, acquired(Confirmed)9 Active Vertigo(Confirmed) Active 1By EGD 2017.2Performed bilaterally [address] GreenXqytmu6Zoikzecdrqg 2014 positive polyps, repeat 58648Bnkagk post hysterectomy 1988.5colo 22725Tmilvuzv by Dr. Arora7CT scan 27523Ezrkzhts by dermatology, Dr. McgregorHobmt4Qlzwtjkn by Dr. Luna Vital Signs Most recent to oldest [Reference Range]: 1 Height 167.6 cm (07/12/22 9:45 AM) Weight 86 kg (07/12/22 9:45 AM) Body Mass Index [18.5-24.99] 30.62 *>HHI* (07/12/22 9:45 AM) Social History Social History Type Response Smoking Status Former smoker; Other: Quit s moking 2014. Approximately 31-65-inss-year history of smoking; entered on: 02/16/17 Sex
--- OUTSIDE RECORDS SUMMARY | 2022-10-20 10:04 | XMS_ITS | Continuity of Care Document ---
:1960 Author Organization [facility] Address [address] [place] [address]- Care Team Providers Name Role Phone Jude Melo MD Primary Care Physician Encounter [facility] Date(s): 04/01/21 - 05/01/21 [facility] [address] [place] [address]- Attending Physician: Admtr, Emmanuel8 Admitting Physician: Admtr, [...] 0, Maintenance, use overnight and naps from [employer], 03/21/18 10:53:58 EDT, Compound Start Date: 03/21/18 Status: OrderedCrestor 10 mg oral tablet 1 tablet = 10 mg, By Mouth, Daily, # 30 tablet, 5 Refills, Maintenance, 09/20/20 16:02:00 EDT, Tablet, [facility][id number], 167.6, cm, 09/17/20 8:34:00 EDT, Height Start Date: 09/20/20 Status: OrderedHISTOPLAX-ORGANIC ALLERGY MEDICATION [employer] ALLERGY MEDICATION, Refills 0, Maintenance, 10/25/20 13:57:00 EST, Supply Start Date: 10/25/20 Status: Orderedlosartan 100 mg oral tablet 1 tablet = 100 mg, By Mouth, Daily, # 90 tablet, 1 Refills, Maintenance, 03/25/21 12:11:00 EDT, Tablet, [facility] #[id number], 167.6, cm, 01/07/21 8:37:00 EST, Height Start Date: 03/25/21 Status: OrderedMethylPREDNISolone Dose Pack 4 mg oral tablet 1 pack/packet, By Mouth, Once, # 21 tablet, 0 Refills, Soft Stop, 04/01/21 9:05:00 EDT, Tablet, [facility] #[id number], Partial fill upon patient request if the [...] 1By EGD 2017.2Performed bilaterally [address] GreenGbtuwr5Pkixafyfece 2014 positive polyps, repeat 84841Eycfkr post hysterectomy 1988.5colo 9[address]29Lmgomfjk by Dr. Arora7CT scan 53644Kktsbnbu by dermatology, Dr. McgregorIqxax7Barajoxw by Dr. Luna Social History Social History Type Response Smoking Status Former smoker; Other: Quit s moking 2014. Approximately 69-16-awgl-year history of smoking; entered on: 02/16/17 Sex
--- OUTSIDE RECORDS SUMMARY | 2022-10-20 10:05 | XMS_ITS | Continuity of Care Document ---
:1960 Author Organization [facility] Address [address] [place] [address]- Care Team Providers Name Role Phone Jude Melo MD Primary Care Physician Encounter [facility] [place] Date(s): 04/05/22 - 05/05/22 [facility] [address] [place] [address] Attending Physician: Supa Jay Admitting Physician: AdmSupa cruz Referring Physician: AdmtrSupa Allergies, Adverse Reactions, Alerts Substance Reaction Severity Status naproxen1 rash Active doxycycline rash Active morphine rash Active shellfish throat closed Active Florinef Acetate rash Active Ativan rash Active Onions throat closed Active 1hives Immunizations Given and Recorded Vaccine Date Status Refusal Reason influenza virus vaccine, inactivated 09/29/21 Recorded influenza [...] 3 Refills, Maintenance, 05/04/21 9:59:00 EDT, Tablet, [facility], 1 tablet By Mouth Daily, 167.6, cm, 05/04/21 9:45:00 EDT, Height Start Date: 05/04/21 Status: Orderedatorvastatin 10 mg oral tablet 1 tablet, By Mouth, Daily, # 90 tablet, 1 Refills, [facility] WBP, 167.6, cm, 04/05/22 8:06:00 EDT, Height Start Date: 04/17/22 Status: OrderedAutoCPAP 14-19 with heated humidification from [employer] AutoCPAP 14-19 with heated humidification from [employer], See Instructions, # 1 each, Refills 0, Tot. Refills 0, Maintenance, use overnight and naps from [employer], 03/21/18 10:53:58 EDT, Compound Start Date: 03/21/18 Status: OrderedFlax Seed Oil 0 Refills, Maintenance, [...] mg, 1, tablet, By Mouth, Daily, # 30 tablet, Refills 5, Tot. Refills 5, Maintenance, 02/17/22 10:55:00 EDT, Route to Pharmacy Electronically, [facility][id number], Partial fill upon patient request if the prescription is for a schedule II op... Start Date: 02/17/22 Status: Ordered Problem List Condition Effective Dates [...] Active Low back pain(Confirmed) Active Obese class II(Confirmed) Active TEODORO (obstructive sleep Active apnea)(Confirmed) Leg pain, bilateral(Confirmed) Active Pectus excavatum(Confirmed) Active Emphysema of lung(Confirmed)7 Active Keratosis seborrheica(Confirmed)8 Active Ovarian torsion, acquired(Confirmed)9 Active Vertigo(Confirmed) Active 1By EGD 2017.2Performed bilaterally [address] GreenNdkxwl4Dnuoouszwvq 2014 positive polyps, repeat 37595Hbsrte post hysterectomy 1988.5colo 80791Dbcmftcs by Dr. Arora7CT scan 50743Oayppbjm by dermatology, Dr. McgregorMjbnj5Qpickeif by Dr. Luna Social History Social History Type Response Smoking Status Former smoker; Other: Quit s moking 2014. Approximately 99-63-mxou-year history of smoking; entered on: 02/16/17 Sex
--- OUTSIDE RECORDS SUMMARY | 2022-10-20 10:05 | XMS_ITS | Continuity of Care Document ---
:1960 Author Organization [facility] Address [address] [place] [address]- Care Team Providers Name Role Phone Jude Melo MD Primary Care Physician Encounter [facility] Date(s): 02/25/20 - 03/03/20 [facility] [address] [place] [address] [facility] Encounter Diagnosis TEODORO (obstructive sleep apnea) (Discharge Diagnosis) - 02/25/20 Attending Physician: Amaya Marley MD Admitting Physician: Amaya Marley MD Referring Physician: Jude Melo MD Allergies, [...] Dry Weight Start Date: 11/03/19 Status: OrderedAutoCPAP 14-19 with heated humidification from [employer] AutoCPAP 14-19 with heated humidification from [employer], [...] Refills, Maintenance, Tablet, Route to Pharmacy Electronically, [id number], [facility] [id number] Start Date: 04/10/19 Status: Orderedlosartan 100 mg oral tablet 1 tablet = 100 mg, By Mouth, Daily, # 90 tablet, 3 Refills, Maintenance, 04/10/19 12:34:03 EDT, Tablet Start Date: 04/10/19 Status: OrderedProbiotic + Colostrum oral powder for reconstitution 1 pack/packet, By Mouth, Daily, 0 Refills, Maintenance, 02/25/20 8:37:00 EDT Start Date: 02/25/20 Status: OrderedtraMADol 50 mg oral tablet 1 [...] torsion, acquired(Confirmed)9 Active Vertigo(Confirmed) Active 1By EGD 2016.2Performed bilaterally [address] GreenEvjmbs2Lnbkyafjmad 2014 positive polyps, repeat 04923ipyi 31455Lonffwnj by Dr. AroraNnxlmw2Naxypf post hysterectomy 1988.7CT scan 92734Cgndowon by dermatology, Dr. McgregorJqfcn9Hcgyewsk by Dr. Luna Diagnosis Diagnosis Type Effective Dates Health Status Clinical In formant Service TEODORO (obstructive Discharge 02/25/20 sleep apnea) Diagnosis Vital Signs Most recent to oldest [Reference Range]: 1 2 Height 167.6 cm 167.6 cm (02/25/20 8:38 AM) (02/25/20 8:34 AM) Weight 102 kg (02/25/20 8:38 AM) Body Mass Index [18.5-24.99] 36.31 *>HHI* (02/25/20 8:38 AM) Social History Social History Type Response Smoking Status Former smoker; Other: Quit s moking 2014. Approximately 15-00-xxkq-year history of smoking; entered on: 02/16/17 Sex
--- OUTSIDE RECORDS SUMMARY | 2022-10-20 10:05 | XMS_ITS | Continuity of Care Document ---
:1960 Author Organization [facility] [address] [place] [address]- Care Team Providers Name Role Phone Lorie YOUNGER, Jude Garcias Primary Care Physician Encounter [facility] Date(s): 07/12/22 - 08/11/22 [facility] [address] [place], [place] [address] Attending Physician: AdmSupa cruz Admitting Physician: Admtr, Ar8 Referring Physician: Admtr, Ar8 Allergies, Adverse Reactions, Alerts Substance Reaction Severity Status naproxen1 rash Active doxycycline rash Active morphine rash Active shellfish throat closed Active Florinef Acetate rash Active Ativan rash Active Onions throat closed Active 1hives Immunizations Given and Recorded Vaccine Date Status Refusal Reason SARS-CoV-2 mRNA (xknxrky-qjxm-eqskl) vax 03/08/22 Recorde d influenza virus vaccine, [...] Mouth, Daily, # 90 tablet, 1 Refills, [facility] WBP, 90, TAKE 1 TABLETDAILY, 167.6, cm, 05/24/22 12:56:00 EDT, Height Start Date: 07/10/22 Status: Orderedatorvastatin 10 mg oral tablet 1 tablet, By Mouth, Daily, # 90 tablet, 1 Refills, [facility] WBP, 167.6, cm, 04/05/22 8:06:00 EDT, Height Start Date: 04/17/22 Status: OrderedAutoCPAP 14-19 with heated humidification from [employer] AutoCPAP 14-19 with heated humidification from [employer], See Instructions, # 1 each, Refills 0, Tot. Refills 0, Maintenance, use overnight and naps from [employer], 03/21/18 10:53:58 EDT, Compound Start Date: 03/21/18 Status: Orderedcyclobenzaprine 5 mg oral tablet See Instructions, Take 1 tablet every 8 hours as needed for muscle spasm, # 21 capsule, 0 Refills, Maintenance, 07/18/22 14:24:00 EDT, Tablet, [facility] #[id number], Partial fill upon patient request if the [...] 05/09/22 9:55:00 EDT, Route to Pharmacy Electronically, [facility], Partial fill upon patient request [...] 1By EGD 2017.2Performed bilaterally [address] GreenYjbefo4Melmhbfnwsy 2014 positive polyps, repeat 21082Yoebqf post hysterectomy 1988.5colo 46175Gstbwepg by Dr. Arora7CT scan 77948Ciewhakn by dermatology, Dr. McgregorVvqlq0Wfqkbpoa by Dr. Luna Social History Social History Type Response Smoking Status Former smoker; Other: Quit s moking 2014. Approximately 76-67-eqeg-year history of smoking; entered on: 02/16/17 Sex Care Team PersonnelName: Lorie YOUNGER, Jude Garcias Address: [address] [place] [address]
--- OUTSIDE RECORDS SUMMARY | 2022-10-20 10:05 | XMS_ITS | Continuity of Care Document ---
:1960 Author Organization [facility] [place] [address] [facility], [facility] [address] [place] [address]- Care Team Providers Name Role Phone Lorie YOUNGER, Jude Garcias Primary Care Physician Encounter 06/19/22 - 06/26/22 [facility] [address], [address] [place] [address]- Attending Physician: Dex Luna MD Admitting Physician: Dex Luna MD Referring Physician: Dex Luna MD Allergies, Adverse Reactions, Alerts Substance Reaction Severity Status naproxen1 rash Active doxycycline rash Active morphine rash Active shellfish throat closed Active Florinef Acetate rash Active Ativan rash Active Onions throat closed Active 1hives Immunizations Given and Recorded Vaccine Date Status Refusal Reason SARS-CoV-2 mRNA (guhsopn-mymp-ckrev) vax 03/08/22 Recorde d influenza virus vaccine, [...] 3 Refills, Maintenance, 05/04/21 9:59:00 EDT, Tablet, [facility], 1 tablet By Mouth Daily, 167.6, cm, 05/04/21 9:45:00 EDT, Height Start Date: 05/04/21 Status: Orderedatorvastatin 10 mg oral tablet 1 tablet, By Mouth, Daily, # 90 tablet, 1 Refills, [facility] W[facility], 167.6, cm, 04/05/22 8:06:00 EDT, Height Start Date: 04/17/22 Status: OrderedAutoCPAP 14-19 with heated humidification from [employer] AutoCPAP 14-19 with heated humidification from [employer], See Instructions, # 1 each, Refills 0, Tot. Refills 0, Maintenance, use overnight and naps from [employer], 03/21/18 10:53:58 EDT, Compound Start Date: 03/21/18 [...] 05/09/22 9:55:00 EDT, Route to Pharmacy Electronically, [facility], Partial fill upon patient request if [...] 1By EGD 2017.2Performed bilaterally [address] GreenYqgmlh2Rvhwjvprldx 2014 positive polyps, repeat 34097Aogefa post hysterectomy 1988.5colo 64285Nergbjaj by Dr. Aorra7CT scan 28957Zdxolugl by dermatology, Dr. McgregorCsuaa9Kwgjcqig by Dr. Luna Social History Social History Type Response Smoking Status Former smoker; Other: Quit s moking 2014. Approximately 58-43-zxky-year history of smoking; entered on: 02/16/17 Sex
--- OUTSIDE RECORDS SUMMARY | 2022-10-20 10:05 | XMS_ITS | Continuity of Care Document ---
:1960 Author Organization [facility] Address [address] [facility], [address] [place] [address]- Care Team Providers Name Role Phone Jude Melo MD Primary Care Physician Encounter 06/10/20 - 06/17/20 [facility] [address], [address] [place] [address]- [facility] Attending Physician: Jude Melo MD Admitting Physician: Jude Melo MD Referring Physician: Jude Melo MD Allergies, [...] [employer] AutoCPAP 14-19 with heated humidification from [employer], See Instructions, # 1 each, Refills 0, Tot. Refills 0, Maintenance, use overnight and naps from [employer], 03/21/18 10:53:58 EDT, Compound Start Date: 03/21/18 Status: Orderedlosartan 100 mg oral tablet 1 tablet = 100 mg, By Mouth, Daily, # 90 tablet, 1 Refills, Maintenance, 04/06/20 15:34:00 EDT, Tablet, [facility] #[id number], 167.6, cm, 03/22/20 8:52:00 EDT, Height Start Date: 04/06/20 Status: OrderedProbiotic + Colostrum oral powder for [...] Active Vertigo(Confirmed) Active 1By EGD 2016.2Performed bilaterally [address] GreenWfubgq3Fuhzrxfuscu 2014 positive polyps, repeat 58352Mkaivi post hysterectomy 1988.5colo 76254Lqfnqvfk by Dr. Arora7CT scan 23198Yvylvfvp by dermatology, Dr. McgregorGqcrx3Akqrmapu by Dr. Luna Social History Social History Type Response Smoking Status Former smoker; Other: Quit s moking 2014. Approximately 77-86-rrdi-year history of smoking; entered on: 02/16/17 Sex
--- OUTSIDE RECORDS SUMMARY | 2022-10-20 10:05 | XMS_ITS | Continuity of Care Document ---
:1960 Author Organization [facility] Address [address] [facility], [address] [place] [address]- Care Team Providers Name Role Phone Lorie YOUNGER, Jude Garcias Primary Care Physician Encounter 06/15/21 - 06/22/21 [facility] [address], [address] [place] [address]- Attending Physician: Cheryl YOUNGER, Dex Bowman Admitting Physician: Dex Luna MD Referring Physician: [...] 3 Refills, Maintenance, 05/04/21 9:59:00 EDT, Tablet, [facility], 1 tablet By Mouth Daily, 167.6, cm, 06/09/21 9:45:00 EDT, Height Start Date: 05/04/21 Status: Orderedatorvastatin 10 mg oral tablet 1 tablet = 10 mg, By Mouth, Daily, # 90 tablet, 3 Refills, Maintenance, 05/05/21 11:42:00 EDT, [facility], Partial fill upon patient request if the prescription is for a scheduleII opioid drug., 167.6, cm, 05/04/21 9:45:00 EDT,... Start Date: 05/05/21 Status: OrderedAutoCPAP 14-19 with heated humidification from [employer] AutoCPAP 14-19 with heated humidification from [employer], See Instructions, # 1 each, Refills 0, Tot. Refills 0, Maintenance, use overnight and naps from [employer], 03/21/18 10:53:58 EDT, Compound Start Date: 03/21/18 Status: OrderedHISTOPLAX-ORGANIC ALLERGY MEDICATION [employer]GY MEDICATION, Refills 0, Maintenance, 10/25/20 13:57:00 EST, Supply Start Date: 10/25/20 Status: Orderedlosartan 100 mg oral tablet 1 tablet = 100 mg, By Mouth, Daily, # 90 tablet, 3 Refills, Maintenance, 05/04/21 9:59:00 EDT, Tablet, [facility], 167.6, cm, 05/04/21 9:45:00 EDT, Height [...] 1By EGD 2017.2Performed bilaterally [address] GreenWtktzk1Teedaetiywb 2014 positive polyps, repeat 55648Mxmeix post hysterectomy 1988.5colo 96365Kslpalia by Dr. Arora7CT scan 26485Wgliwmvy by dermatology, Dr. McgregorLssad8Jscaixmb by Dr. Luna Results Radiology Reports Exam Date Time Procedure Performing Provider Status 06/15/21 10:08 AM Dexa Bone Density (Axial) Sb [facility] (Verified) Notes:(Dexa Bone Density (Axial)) Reason For Exam: Z01.419 ENC CARE TECH EXAMRESULT: DEXA BONE DENSITY (AXIAL) Bone Density Report Name: JACK BAUTISTA Age: 60 Sex: Female Ethnicity: White Date of : 1960 Indication: POSTMENOPAUSAL. Referring Provider: DEX LUNA MD Study: Bone densitometry was performed. Exam Date: June 15, 2021 Accession number: [id number] Bone Density: Region BMD T-score Z-score Classification AP Spine (L1-L4) 1.116 0.6 2.2 Normal Femoral Neck (Left) 0.721 -1.2 0.2 Osteopenia Total Hip (Left) 1.043 0.8 1.9 Normal World Health Organization criteria for BMD impression classify patients as: Normal (T-score at or above -1.0), Osteopenia (T-score between -1.0 and -2.5), or Osteoporosis (T-score at or below -2.5). 10-year Fracture Risk(1): Major Osteoporotic Fracture 7.2% Hip Fracture 0.5% Reported Risk Factors: [place] (), Neck BMD=0.721, BMI=34.8 (1) FRAX(R) Version 3.00. Fracture probability calculated for an untreated patient. Fracture probability may be lower if the patient has received treatment. Clinical Information Provided by Patient: Has the following medical conditions: Asthma or Emphysema, Cancer, Inflammatory bowel diseases, Hysterectomy, EATING DISORDERS Patient maximum height was 65.5 Menopause Age: 27 Onset of menses at age 15 Number of children 0 Impression: The patient has osteopenia as determined by WHO criteria. Reported by: Glen Marley MD on 06/16/2021 11:04:00 AM. Dictated By: Glen Marley MD Dictated Date/Time: 06/16/21 11:05 a Reviewed By: Glen Marley MD Signed By: Glen Marley MD Signed Date/Time: 06/16/21 11:05 am Transcribed By: BRAD Transcribed Date/Time: 06/16/21 11:05 am Social History Social History Type Response Smoking Status Former smoker; Other: Quit s promise 2014. Approximately 28-68-jhhf-year history of smoking; entered on: 02/16/17 Sex
--- OUTSIDE RECORDS SUMMARY | 2022-10-20 10:05 | XMS_ITS | Continuity of Care Document ---
:1960 Author Organization [facility] Address [address] [place] [address]- Care Team Providers Name Role Phone Jude Melo MD Primary Care Physician [place] [facility] [place] [facility] [address] [place] [address]- Encounter Diagnosis Emphysema of lung (Discharge Diagnosis) - 05/24/22 Hypercholesterolemia (Discharge Diagnosis) - 05/24/22 Hypertension (Discharge Diagnosis) - 05/24/22 Costochondritis (Discharge Diagnosis) - 05/24/22 Obese class II (Discharge Diagnosis) - 05/24/22 TEODORO (obstructive sleep apnea) (Discharge Diagnosis) - 05/24/22 Attending Physician: Jude Melo MD Allergies, Adverse Reactions, Alerts Substance Reaction Severity Status naproxen1 rash Active doxycycline rash Active shellfish throat closed Active Florinef Acetate rash Active Ativan rash Active morphine rash Active Onions throat closed Active 1hives Immunizations Given and Recorded Vaccine Date Status Refusal Reason SARS-CoV-2 mRNA (iybufnl-pqtb-tpmit) vax 03/08/22 Recorde d influenza virus vaccine, [...] Mouth, Daily, # 90 tablet, 1 Refills, [facility] WBP, 167.6, cm, 04/05/22 8:06:00 EDT, Height Start Date: 04/17/22 Status: OrderedAutoCPAP 14-19 with heated humidification from [employer] AutoCPAP 14-19 with heated humidification from [employer], See Instructions, # 1 each, Refills 0, Tot. Refills 0, Maintenance, use overnight and naps from [employer], 03/21/18 10:53:58 EDT, Compound Start Date: 03/21/18 [...] 1By EGD 2016.2Performed bilaterally [address] GreenMygvod2Tdzepculiwn 2014 positive polyps, repeat 20345Ulkjbb post hysterectomy 1988.5colo 08909Zekovghi by Dr. Arora7CT scan [id number] by dermatology, Dr. McgregorWmyxd3Uzzwdlpv by Dr. Luna Diagnosis Diagnosis Type Effective Health Clinical Informant Dates Status Service Emphysema of lung Discharge 05/24/22 Diagnosis Hypercholesterolemia Discharge 05/24/22 Diagnosis Hypertension Discharge 05/24/22 Diagnosis Costochondritis Discharge 05/24/22 Diagnosis Obese class II Discharge 05/24/22 Diagnosis TEODORO (obstructive sleep Discharge 05/24/22 apnea) Diagnosis Vital Signs Most recent to oldest [Reference Range]: 1 Height 167.6 cm (05/24/22 12:56 PM) Weight 103.7 kg (05/24/22 12:56 PM) Oxygen Saturation [94-100 %] 98 % (05/24/22 12:56 PM) Pulse Rate [55-90 bpm] 67 bpm (05/24/22 12:56 PM) Body Mass Index [18.5-24.99] 36.92 *>HHI* (05/24/22 12:56 PM) Blood Pressure [90-138/55-84 mm Hg] 100/66 mm Hg (05/24/22 12:56 PM) Mode of Delivery (Oxygen) Room air (05/24/22 12:56 PM) Blood pressure sites Arm, left (05/24/22 12:56 PM) Weight Obtained Via Standing scale (05/24/22 12:56 PM) Social History Social History Type Response Smoking Status Former smoker; Other: Quit s promise 2014. Approximately 42-70-gdei-year history of smoking; entered on: 02/16/17 Sex
--- OUTSIDE RECORDS SUMMARY | 2022-10-20 10:05 | XMS_ITS | Continuity of Care Document ---
:1960 Author Organization [facility] Address [address] [place] [address]- Care Team Providers Name Role Phone Lorie YOUNGER, Jude Garcias Primary Care Physician Encounter [facility] [place] Date(s): 02/02/22 - 02/09/22 [facility] [address] [place] [address]- Attending Physician: Beni PEARSON, Margaux Neves Allergies, Adverse Reactions, Alerts Substance Reaction Severity Status naproxen1 rash Active doxycycline rash Active morphine rash Active Onions throat closed Active shellfish throat closed Active Florinef Acetate rash Active Ativan rash Active 1hives Immunizations Given and Recorded Vaccine [...] 3 Refills, Maintenance, 05/04/21 9:59:00 EDT, Tablet, [facility], 1 tablet By Mouth Daily, 167.6, cm, 05/04/21 9:45:00 EDT, Height Start Date: 05/04/21 Status: Orderedatorvastatin 10 mg oral tablet 1 tablet = 10 mg, By Mouth, Daily, # 90 tablet, 3 Refills, Maintenance, 05/05/21 11:42:00 EDT, [facility], Partial fill upon patient request if the prescription is for a scheduleII opioid drug., 167.6, cm, 05/04/21 9:45:00 EDT,... Start Date: 05/05/21 Status: OrderedAutoCPAP 14-19 with heated humidification from [employer] AutoCPAP 14-19 with heated humidification from [employer], See Instructions, # 1 each, Refills 0, Tot. Refills 0, Maintenance, use overnight and naps from [employer], 03/21/18 10:53:58 EDT, Compound Start Date: 03/21/18 Status: OrderedFlax Seed Oil 0 Refills, Maintenance, 11/03/21 9:19:00 EST, Partial fill upon patient request if the prescription is for a schedule II opioid drug. Start Date: 11/03/21 Status: Orderedlosartan 100 mg oral tablet 1 tablet = 100 mg, By Mouth, Daily, # 90 tablet, 3 Refills, Maintenance, 05/04/21 9:59:00 EDT, Tablet, [facility], 167.6, cm, 05/04/21 9:45:00 EDT, Height [...] 1By EGD 2016.2Performed bilaterally [address] GreenGhkikx6Puanuunzjgc 2014 positive polyps, repeat 63151Aenetn post hysterectomy 1988.5colo 14464Ktpiuklv by Dr. Arora7CT scan [id number] by dermatology, Dr. McgregorPxqnf0Lbosgenq by Dr. Luna Vital Signs Most recent to oldest [Reference Range]: 1 2 Height 167.6 cm 167.6 cm (02/03/22 11:34 AM) (02/02/22 2:23 PM) Weight 99.9 kg 99.9 kg (02/03/22 11:34 AM) (02/02/22 2:23 PM) Oxygen Saturation [94-100 %] 98 % (02/02/22: PM) Pulse Rate [55-90 bpm] 57 bpm (02/02/22: PM) Body Mass Index [18.5-24.99] 35.56 *>HHI* (02/02/22 2: PM) Blood Pressure [90-138/55-84 mm Hg] 127/78 mm Hg (02/02/22 2: PM) Respiratory Rate [16-30 br/min] 18 br/min (02/02/22 2:23 PM) Temperature [96.8-100.4 DegF] 98.0 DegF (02/02/22: PM) Mode of Delivery (Oxygen) Room air (02/02/22 2: PM) Blood pressure sites Arm, left (02/02/22 2: PM) Temperature Route Oral (02/02/22 2: PM) Weight Obtained Via Standing scale (02/02/22: PM) Social History Social History Type Response Smoking Status Former smoker; Other: Quit s moking 2014. Approximately 47-85-yceu-year history of smoking; entered on: 02/16/17 Sex
--- OUTSIDE RECORDS SUMMARY | 2022-10-20 10:05 | XMS_ITS | Continuity of Care Document ---
:1960 Author Organization [facility] Address [address] [place] [address]- Care Team Providers Name Role Phone Jude Melo MD Primary Care Physician Encounter [facility] [place] Date(s): 04/21/20 - 04/28/20 [facility] [address] [place] [address]- [facility] Attending Physician: Margaux Bazan NP Referring Physician: Jude Melo MD Allergies, Adverse [...] Dry Weight Start Date: 11/03/19 Status: OrderedAutoCPAP 14- with heated humidification from [employer] AutoCPAP 14 with heated humidification from [employer], See Instructions, # 1 each, Refills 0, Tot. Refills 0, Maintenance, use overnight and naps from [employer], 03/21/18 10:53:58 EDT, Compound Start Date: 03/21/18 Status: Orderedlosartan 100 mg oral tablet 1 tablet = 100 mg, By Mouth, Daily, # 90 tablet, 1 Refills, Maintenance, 04/06/20 15:34:00 EDT, Tablet, [id number], 167.6, cm, 03/22/20 8:52:00 EDT, Height Start [...] 1By EGD 2017.2Performed bilaterally [address] GreenGwnabd1Xmiuzmxeezf 2015 positive polyps, repeat 35130Jdizsv post hysterectomy 1988.5colo 34673Ztltxste by Dr. Arora7CT scan [id number] by dermatology, Dr. McgregorGfafz0Hlziuqzs by Dr. Luna Vital Signs Most recent to oldest [Reference Range]: 1 Height 167.6 cm (04/21/20 3:22 PM) Weight 100.8 kg (04/21/20 3:22 PM) Oxygen Saturation [94-100 %] 97 % (04/21/20 3:22 PM) Pulse Rate [55-90 bpm] 58 bpm (04/21/20 3:22 PM) Body Mass Index [18.5-24.99] 35.88 *>HHI* (04/21/20 3:22 PM) Blood Pressure [90-138/55-84 mm Hg] 118/62 mm Hg (04/21/20 3:22 PM) Temperature [96.8-100.4 DegF] 98.7 DegF (04/21/20 3:22 PM) Blood pressure sites Arm, right (04/21/20 3:22 PM) Temperature Route Oral (04/21/20 3:22 PM) Social History Social History Type Response Smoking Status Former smoker; Other: Quit s moking 2014. Approximately 48-99-mzlf-year history of smoking; entered on: 02/16/17 Sex
--- OUTSIDE RECORDS SUMMARY | 2022-10-20 10:05 | XMS_ITS | Continuity of Care Document ---
:1960 Author Organization [facility] Address [address] [place] [id number]- Care Team Providers Name Role Phone Jude Melo MD Primary Care Physician Encounter [facility] [place] Date(s): 02/25/20 - 03/06/20 [facility] [address] [address]- [facility] Attending Physician: Supa Jay Admitting Physician: AdmSupa [...] Status: OrderedAutoCPAP 14-19 with heated humidification from [employer] AutoCPAP 14-19 with heated humidification from [employer], [...] Refills, Maintenance, Tablet, Route to Pharmacy Electronically, [id number], [facility] [id number] Start Date: 04/10/19 Status: Orderedlosartan 100 mg [...] 1By EGD 2016.2Performed bilaterally [address] GreenCalujg1Hroaiayronk 2014 positive polyps, repeat 47870qmcb 33257Cksrschj by Dr. AroraOivvio6Tjkrzc post hysterectomy 1988.7CT scan [id number] by dermatology, Dr. McgregorQlvrd7Glrghbwc by Dr. Luna Social History Social History Type Response Smoking Status Former smoker; Other: Quit s moking 2014. Approximately 28-78-xikj-year history of smoking; entered on: 02/16/17 Sex
--- OUTSIDE RECORDS SUMMARY | 2022-10-20 10:05 | XMS_ITS | Continuity of Care Document ---
:1960 Author Organization [facility] Address [address] [place] [address]- Care Team Providers Name Role Phone Lorie YOUNGER, Jude Garcias Primary Care Physician Encounter [facility] Date(s): 02/06/22 - 03/08/22 [facility] [address] [place] [address]- Allergies, Adverse Reactions, Alerts Substance Reaction Severity [...] 3 Refills, Maintenance, 05/04/21 9:59:00 EDT, Tablet, [facility], 1 tablet By Mouth Daily, 167.6, cm, 05/04/21 9:45:00 EDT, Height Start Date: 05/04/21 Status: Orderedatorvastatin 10 mg oral tablet 1 tablet = 10 mg, By Mouth, Daily, # 90 tablet, 3 Refills, Maintenance, 05/05/21 11:42:00 EDT, [facility], Partial fill upon patient request if the prescription is for a scheduleII opioid drug., 167.6, cm, 05/04/21 9:45:00 EDT,... Start Date: 05/05/21 Status: OrderedAutoCPAP 14-19 with heated humidification from [employer] AutoCPAP 14-19 with heated humidification from [employer], See Instructions, # 1 each, Refills 0, Tot. Refills 0, Maintenance, use overnight and naps from [employer], 03/21/18 10:53:58 EDT, Compound Start Date: 03/21/18 [...] 02/17/22 10:55:00 EDT, Route to Pharmacy Electronically, [facility][id number], Partial fill upon patient request if the [...] 1By EGD 2017.2Performed bilaterally [address] GreenJkahyv0Kitopoysigs 2014 positive polyps, repeat 62130Ggnreb post hysterectomy 1988.5colo 05954Bobpaazt by Dr. Arora7CT scan [id number] by dermatology, Dr. McgregorSwfdo1Qrjfizqp by Dr. Luna Social History Social History Type Response Smoking Status Former smoker; Other: Quit s moking 2014. Approximately 69-49-elio-year history of smoking; entered on: 02/16/17 Sex
--- OUTSIDE RECORDS SUMMARY | 2022-10-20 10:05 | XMS_ITS | Continuity of Care Document ---
:1960 Author Organization [facility] Address [address] [place] [address]- Care Team Providers Name Role Phone Jude Melo MD Primary Care Physician Encounter [facility] [place] Date(s): 01/11/21 - 02/10/21 [facility] [address] [place] [address]- Allergies, Adverse Reactions, Alerts Substance Reaction Severity [...] 14- with heated humidification from [employer] AutoCPAP 14-19 with heated humidification from [employer]&L, See Instructions, # 1 each, Refills 0, Tot. Refills 0, Maintenance, use overnight and naps from [employer], 03/21/18 10:53:58 EDT, Compound Start Date: 03/21/18 Status: OrderedCrestor 10 mg oral tablet 1 tablet = 10 mg, By Mouth, Daily, # 30 tablet, 5 Refills, Maintenance, 09/20/20 16:02:00 EDT, Tablet, [facility][id number], 167.6, cm, 09/17/20 8:34:00 EDT, Height Start Date: 09/20/20 Status: OrderedHISTOPLAX-ORGANIC ALLERGY MEDICATION HISTOPLAX-ORGANIC ALLERGY MEDICATION, Refills 0, Maintenance, 10/25/20 13:57:00 EST, Supply Start Date: 10/25/20 Status: Orderedlosartan 100 mg oral tablet 1 tablet = 100 mg, By Mouth, Daily, # 90 tablet, 1 Refills, Maintenance, 09/29/20 11:53:00 EST, Tablet, [facility] #[id number], 167.6, cm, 09/17/20 8:34:00 EDT, Height Start Date: 09/29/20 Status: OrderedProbiotic + Colostrum oral powder for [...] 1By EGD 2016.2Performed bilaterally [address] GreenHsvuky4Vnsqgupnngy 2014 positive polyps, repeat 91849Zwtiej post hysterectomy 1988.5colo 53276Qsdvpraf by Dr. Arora7CT scan [id number] by dermatology, Dr. McgregorDhmhz7Ofbrahxk by Dr. Luna Social History Social History Type Response Smoking Status Former smoker; Other: Quit s moking 2014. Approximately 70-09-gxwt-year history of smoking; entered on: 02/16/17 Sex
--- OUTSIDE RECORDS SUMMARY | 2022-10-20 10:05 | XMS_ITS | Continuity of Care Document ---
:1960 Author Organization [facility] Address [address] [place] [address]- Care Team Providers Name Role Phone Lorie YOUNGER, Jude Garcias Primary Care Physician Encounter [facility] Date(s): 08/21/22 - 09/20/22 [facility] [address] [place] [address]- Allergies, Adverse Reactions, Alerts Substance Reaction Severity Status naproxen1 rash Active doxycycline rash Active morphine rash Active shellfish throat closed Active Florinef Acetate rash Active Ativan rash Active Onions throat closed Active 1hives Immunizations Given and Recorded Vaccine Date Status Refusal Reason [id number] 12y+ bivalent booster vax 08/21/22 Recorde d SARS-CoV-2 mRNA (upndhmf-yjup-kmxxb) vax 03/08/22 Recorde d influenza virus vaccine, inactivated 09/29/21 Recorded influenza virus vaccine, inactivated 09/15/19 Given influenza virus vaccine, inactivated 09/27/18 Given influenza virus vaccine, inactivated 09/04/17 Given influenza virus vaccine, inactivated 01/01/17 Recorded influenza virus vaccine, inactivated 12/19/16 Given SARS-CoV-2 (COVID-19) mRNA BNT-162b2 vac 08/28/21 Recorde d SARS-CoV-2 (COVID-19) mRNA BNT-162b2 vac 03/03/21 Recorde d SARS-CoV-2 (COVID-19) mRNA BNT-162b2 vac 02/23/21 Recorde d SARS-CoV-2 (COVID-19) mRNA BNT-162b2 vac 02/02/21 Recorde d Influenza Virus Vaccine (oldterm) 09/08/20 Recorded tetanus/diphtheria/pertussis, acel(Tdap) 05/12/19 Given tetanus/diphtheria/pertussis, acel(Tdap) 02/04/09 Recorde d pneumococcal 23-valent vaccine 09/04/17 Given pneumococcal 13-valent vaccine 02/13/13 Recorded Medications atenolol-chlorthalidone 100 mg-25 mg oral tablet 1 tablet, By Mouth, Daily, # 90 tablet, 1 Refills, [facility] W[facility], 90, TAKE 1 TABLETDAILY, 167.6, cm, 05/24/22 12:56:00 EDT, Height Start Date: 07/10/22 Status: Orderedatorvastatin 10 mg oral tablet 1 tablet, By Mouth, Daily, # 90 tablet, 1 Refills, [facility] W[facility], 167.6, cm, 04/05/22 8:06:00 EDT, Height Start Date: 04/17/22 Status: OrderedAutoCPAP 14-19 with heated humidification from [employer] AutoCPAP 14-19 with heated humidification from [employer], See Instructions, # 1 each, Refills 0, Tot. Refills 0, Maintenance, use overnight and naps from [employer], 03/21/18 10:53:58 EDT, Compound Start Date: 03/21/18 Status: Orderedcyclobenzaprine 5 mg oral tablet See Instructions, Take 1 tablet every 8 hours as needed for muscle spasm, # 21 capsule, 0 Refills, Maintenance, 07/18/22 14:24:00 EDT, Tablet, [facility][id number], Partial fill upon patient request if the [...] tablet, Refills 0, Tot. Refills 0, Maintenance, 08/14/22 10:49:00 EDT, Route to Pharmacy Electronically, [facility]/pharmacy #[id number], Partial fill upon patient request ifthe prescription is for a schedule II opioid drug... Start Date: 08/14/22 Status: Ordered Problem List Condition Confirmation Course Effective Status Health Informa nt Dates Status Allergic rhinitis Confirmed Active Obesity (BMI 35.0-39.9 Confirmed Active without comorbidity) Marijuana use Confirmed Active Abnormal CT scan of lung Confirmed Active Costochondritis Confirmed Active COVID-19 virus infection Confirmed Active Glucose intolerance Confirmed Active Fibromyalgia Confirmed Active Gastritis1 Confirmed Active History of multiple Confirmed Active miscarriages S/P cataract surgery2 Confirmed Active H/O colonoscopy3 Confirmed Active History of cervical Confirmed Active cancer4 Hypercholesterolemia Confirmed Active Hypertension Confirmed Active Internal hemorrhoids5 Confirmed Active Irritable bowel syndrome6 Confirmed Active Low back pain Confirmed Active Obese class II Confirmed Active TEODORO (obstructive sleep Confirmed Active apnea) Leg pain, bilateral Confirmed Active Pectus excavatum Confirmed Active Emphysema of lung7 Confirmed Active Keratosis seborrheica8 Confirmed Active Ovarian torsion, Confirmed Active acquired9 Vertigo Confirmed Active 1By EGD 2016.2Performed bilaterally [address] GreenLchxrb9Ixlejvszrlu 2014 positive polyps, repeat 76488Uyizzw post hysterectomy 1988.5colo 70405Idfyuchx by Dr. Arora7CT scan 73330Nnkizhqx by dermatology, Dr. McgregorIqhjb9Bjmgvziu by Dr. Luna Social History Social History Type Response Smoking Status Former smoker; Other: Quit s moking 2014. Approximately 87-77-jnpn-year history of smoking; entered on: 02/16/17 Sex Patient Care team information PersonnelName: Lorie YOUNGER, Jude Garcias Address: Address: [address] [place] [id number]
--- OUTSIDE RECORDS SUMMARY | 2022-10-20 10:05 | XMS_ITS | Continuity of Care Document ---
:1960 Author Organization [facility] Address [address] [place] [address]- Care Team Providers Name Role Phone Lorie YOUNGER, Jude Garcias Primary Care Physician Encounter [facility] Date(s): 02/22/22 - 03/24/22 [facility] [address] [place] [address]- Allergies, Adverse Reactions, Alerts Substance Reaction Severity [...] 3 Refills, Maintenance, 05/04/21 9:59:00 EDT, Tablet, [facility], 1 tablet By Mouth Daily, 167.6, cm, 05/04/21 9:45:00 EDT, Height Start Date: 05/04/21 Status: Orderedatorvastatin 10 mg oral tablet 1 tablet = 10 mg, By Mouth, Daily, # 90 tablet, 3 Refills, Maintenance, 05/05/21 11:42:00 EDT, [facility], Partial fill upon patient request if the prescription is for a scheduleII opioid drug., 167.6, cm, 05/04/21 9:45:00 EDT,... Start Date: 05/05/21 Status: OrderedAutoCPAP 14-19 with heated humidification from [employer] AutoCPAP 14-19 with heated humidification from [employer] (?), See Instructions, # 1 each, Refills 0, Tot. Refills 0, Maintenance, use overnight and naps from [employer], 03/21/18 10:53:58 EDT, Compound Start Date: 03/21/18 [...] 02/17/22 10:55:00 EDT, Route to Pharmacy Electronically, [facility] #[id number], Partial fill upon patient request if the [...] 1By EGD 2017.2Performed bilaterally [address] GreenSpzjsl5Eyxnrxxuxgz 2014 positive polyps, repeat 15383Kjxpvh post hysterectomy 1988.5colo 52010Jwbcxgzw by Dr. Arora7CT scan 91504Qxqltnry by dermatology, Dr. McgregorCykxb8Lpjqzdwu by Dr. Luna Social History Social History Type Response Smoking Status Former smoker; Other: Quit s moking 2014. Approximately 91-31-yagp-year history of smoking; entered on: 02/16/17 Sex
--- OUTSIDE RECORDS SUMMARY | 2022-10-20 10:05 | XMS_ITS | Continuity of Care Document ---
:1960 Author Organization [facility] Address [address] [place] [address]- Care Team Providers Name Role Phone Lorie YOUNGER, Jude Garcias Primary Care Physician Encounter [facility] Date(s): 02/10/22 - 03/12/22 [facility] [address] [place] [address]- Allergies, Adverse Reactions, Alerts Substance Reaction Severity [...] 3 Refills, Maintenance, 05/04/21 9:59:00 EDT, Tablet, [facility], 1 tablet By Mouth Daily, 167.6, cm, 05/04/21 9:45:00 EDT, Height Start Date: 05/04/21 Status: Orderedatorvastatin 10 mg oral tablet 1 tablet = 10 mg, By Mouth, Daily, # 90 tablet, 3 Refills, Maintenance, 05/05/21 11:42:00 EDT, [facility], Partial fill upon patient request if the prescription is for a scheduleII opioid drug., 167.6, cm, 05/04/21 9:45:00 EDT,... Start Date: 05/05/21 Status: OrderedAutoCPAP 14-19 with heated humidification from [employer] AutoCPAP 14-19 with heated humidification from [employer] [place], See Instructions, # 1 each, Refills 0, Tot. Refills 0, Maintenance, use overnight and naps from [employer], 03/21/18 10:53:58 EDT, Compound Start Date: 03/21/18 [...] 02/17/22 10:55:00 EDT, Route to Pharmacy Electronically, [facility] #[id number], Partial fill upon patient request if the [...] 1By EGD 2017.2Performed bilaterally [address] GreenYiqfyj0Ajtseuguegp 2014 positive polyps, repeat 59957Grjvwz post hysterectomy 1988.5colo 93419Ynsbdcyv by Dr. Arora7CT scan 45848Idojqycy by dermatology, Dr. McgregorDbdtm2Etplbrre by Dr. Luna Social History Social History Type Response Smoking Status Former smoker; Other: Quit s moking 2014. Approximately 55-26-ftnv-year history of smoking; entered on: 02/16/17 Sex
--- OUTSIDE RECORDS SUMMARY | 2022-10-20 10:05 | XMS_ITS | Continuity of Care Document ---
:1960 Author Organization [facility] Address [address] [place] [address]- Care Team Providers Name Role Phone Lorie YOUNGER, Jude Garcias Primary Care Physician Encounter [facility] Date(s): 02/07/22 - 03/09/22 [facility] [address] [place] [address]- Allergies, Adverse Reactions, Alerts Substance Reaction Severity [...] tablet, 3 Refills, Maintenance, 05/05/21 11:42:00 EDT, [facility], Partial fill upon patient request if the prescription is for a scheduleII opioid drug., 167.6, cm, 05/04/21 9:45:00 EDT,... Start Date: 05/05/21 Status: OrderedAutoCPAP 14-19 with heated humidification from [employer] AutoCPAP 14-19 with heated humidification from [employer], See Instructions, # 1 each, Refills 0, Tot. Refills 0, Maintenance, use overnight and naps from [employer], 03/21/18 10:53:58 EDT, Compound Start Date: 03/21/18 [...] 02/17/22 10:55:00 EDT, Route to Pharmacy Electronically, [facility] #[id number], Partial fill upon patient request if the [...] 1By EGD 2017.2Performed bilaterally [address] GreenWfiara0Ainjsuyiigt 2014 positive polyps, repeat 87068Vscmuc post hysterectomy 1988.5colo 71786Szvuyiat by Dr. Arora7CT scan 69612Dujvxaou by dermatology, Dr. McgregorPyogs6Lucwohnr by Dr. Luna Social History Social History Type Response Smoking Status Former smoker; Other: Quit s moking 2014. Approximately 07-61-dnrk-year history of smoking; entered on: 02/16/17 Sex
[2022-10-20 10:45] VITALS: BP 127/70; PULSE 70; RESP 16; TEMP 37.1; O2SAT 96
--- NOTE | 2022-10-20 10:52 | PC.NURSE ---
patient a/ox4 . isaiah . heart rate regular at 72 beats per minute . breathing even and unlabored , lungs diminished . patient has a productive dry cough with light rome mucous , tissues provided . skin pink warm and dry . abdomen soft positive bowel sounds in all four quadrants . patient has been to Xray for images . patient aware of plan of care .
[2022-10-20 11:35] LABS: MANUAL DIFF FLAG NO
[2022-10-20 11:39] LABS: Basophils Percent Auto 0.6 % (0-2); Eosinophils Absolute Auto 0.2 X10*3/uL (0.0-0.4); Eosinophils Percent Auto 2.4 % (0-4); Hematocrit 40.8 % (37.0-47.0); Hemoglobin 14.2 g/dl (12.0-16.0); Imm Gran Abs Auto 0.04 X10*3/uL (0.00-0.03); Imm Gran Pct Auto 0.6 % (0.0-0.4); Lymphocytes Absolute Auto 2.7 X10*3/uL (1.2-4.9); Lymphocytes Percent Auto 40.6 % (20-40); Mean Corpuscular HGB Conc 34.8 g/dl (31.0-35.0); Mean Corpuscular Hemoglobin 30.6 pg (27.0-33.0); Mean Corpuscular Volume 87.9 fL (80.0-98.0); Mean Platelet Volume 9.3 fL (9.4-12.3); Monocytes Absolute Auto 0.8 X10*3/uL (0.1-1.2); Monocytes Percent Auto 11.9 % (2-11); Neutrophils Absolute Auto 2.9 x10*3/uL (2.0-8.3); Neutrophils Percent Auto 43.9 % (45-73); Platelet Count 207 X10*3/uL (160-400); Red Blood Count 4.64 X10*6/uL (4.20-5.50); White Blood Count 6.7 X10*3/uL (4.8-10.8)
[2022-10-20 12:00] LABS: Alanine Aminotransferase 38 U/L (0-31); Albumin Level 4.1 g/dL (3.5-5.0); Alkaline Phosphatase 90 U/L (39-117); Anion Gap 17 (12-20); Aspartate Amino Transferase 24 U/L (5-31); Bilirubin Total 0.8 mg/dL (0.0-1.0); Blood Urea Nitrogen 20 mg/dL (9-16); Calcium 9.6 mg/dL (8.4-10.2); Carbon Dioxide 25 mmol/L (22-29); Chloride 102 mmol/L (96-108); Creatinine Clr Calc Pharmacy 97.5; Estimated Glomerular Filt Rate > 60; Glucose Random 102 mg/dL (60-115); Magnesium 1.9 mg/dL (1.6-2.6); Potassium 3.5 mmol/L (3.3-5.1); Sodium 140 mmol/L (135-145); Total Protein 6.7 g/dL (6.5-8.0)
[2022-10-20 12:06] LABS: Troponin-I High Sensitivity < 3.5 ng/L (<3.5-17.0)
[2022-10-20 12:19] LABS: Influenza A PCR NEGATIVE (Negative); Influenza B PCR NEGATIVE (Negative); Resp Syncy Virus RNA Qual PCR POSITIVE (Negative); SARS COV2 PCR INHOUSE NEGATIVE (Negative)
== END 2022-10-22 20:22 | disposition home or self-care (01) ==
PROVIDERS: Physician Assistant Medical; Emergency Provider Emergency Medicine Emergency Medical Services; PCP Internal Medicine
DX: J43.9 Emphysema, unspecified (principal); B97.4 Respiratory syncytial virus as the cause of diseases classified elsewhere; Z20.822 Contact with and (suspected) exposure to COVID-19
CPT/HCPCS: 0241U; 71046; 80053; 83735; 84484; 85025; 93005; 99283; 99284

== ENCOUNTER 2023-07-24 11:30 | Outpatient (AMB) | payer MEDICARE, SELFPAY ==
--- NOTE | 2023-07-24 12:11 | MHC.OFFWIV ---
Intake Vital Signs 07/24/23 12:16 Height 5 ft 5 in Weight 221 lb BMI 36.8 BP 94/60 Blood Pressure Location Rt brachial Position Sitting Pulse 67 Pulse Source Pulse Oximeter Temp 96.7 F L Temp Source Temporal Artery Scan Pulse Oximetry (%) 97 Oxygen Delivery Method Room Air Intake Visit Reasons: EP, Cyst under left breast Intake Note: Pt is here c/o possible multiple cyst under her left breast. Pt states one cyst is in infected. Patient Tobacco Use Status: Never used Tobacco Allergies butalbital [From FIORINAL] Allergy (Unknown, Verified 07/24/23 12:14) HIVES doxycycline [DOXYCYCLINE] Allergy (Unknown, Verified 07/24/23 12:14) HIVES lorazepam [From ATIVAN] Allergy (Unknown, Verified 07/24/23 12:14) HIVES morphine [MORPHINE] Allergy (Unknown, Verified 07/24/23 12:14) HIVES Doxycycline Calcium Allergy (Unknown, Uncoded 07/24/23 12:14) Hives HPI EP, Cyst under left breast HPI Details Patient reports today with 2 small reddened areas on her left breast. She reports she has a history of getting abscesses on breasts, in armpits, behind legs etc, and she usually responds well to antibiotics. At times, they become large enough that they require incision and drainage. She noticed these 2 areas several days ago, 1 of which has been draining slightly. She denies any fever or chills. [facility] Medical History Fibromyalgia HTN (hypertension) IBS (irritable bowel syndrome) Sleep apnea Social History Alcohol intake: never Patient Tobacco Use Status: Never used Tobacco Review of Systems Const All systems reviewed & are unremarkable except as noted in HPI and below Physical Exam Vital Signs: Last Vital Signs Temp 96.7 F L 07/24/23 12:16 Pulse 67 07/24/23 12:16 BP 94/60 07/24/23 12:16 Pulse Ox 97 07/24/23 12:16 Oxygen Delivery Method Room Air 07/24/23 12:16 BMI result Body Mass Index 36.8 Const General: cooperative, healthy appearing, comfortable and no acute distress Resp Effort & Inspection: normal respiratory effort and able to speak in complete sentences Skin Other: small, approx 1cm in diameter erythematous area at medial aspect of left breast. Area appears to be scabbed over. No drainage at this time. Area is indurated and is tender and mildly warm to touch. Extrem General: Yes capillary refill normal and Yes no clubbing, cyanosis or edema Psych Appearance: grossly normal Mental Status: mental status grossly normal Speech and movement: Normal speech and movement present Assessment & Plan Assessment & Plan (1) Cellulitis of left breast: Code(s): N61.0 - Mastitis without abscess Plan: Will start on Keflex for cellulitis of left breast. No current indication for I&D however patient reports purulent drainage previously. Advised to keep area clean and dry. If she does not improve with treatment or if she develops abscess, worsening symptoms or fever, she should return to the clinic or PCP for further evaluation. She agrees to plan. Medications: New cephalexin 500 mg PO QID 28 caps 0RF 7 days N61.0 - Mastitis without abscess Coding Level of Care Code Est Pt Level 3 (96060) Diagnoses Cellulitis of left breast N61.0
[2023-07-24 12:16] VITALS: BP 94/60; PULSE 67; TEMP 35.9; O2SAT 97; BMI 36.8
== END 2023-07-24 12:39 | disposition home or self-care (01) ==
PROVIDERS: PCP Internal Medicine; Visit Provider Nurse Practitioner Family
DX: N61.0 Mastitis without abscess (principal)
CPT/HCPCS: 99213

== ENCOUNTER 2023-11-08 21:10 | Emergency (ER) | payer MEDICARE, SELFPAY ==
--- NOTE | 2023-11-08 | ECG_ITS ---
Test Reason : CHEST PAIN Blood Pressure : / mmHG Vent. Rate : 065 BPM Atrial Rate : 065 BPM P-R Int : 156 ms QRS Dur : 094 ms QT Int : 430 ms P-R-T Axes : 009 -26 -06 degrees QTc Int : 447 ms Normal sinus rhythm Nonspecific ST abnormality Abnormal ECG When compared with ECG of 20-OCT-2022 11:36, T wave inversion no longer evident in Anterior leads Referred By: Generic ED Physician Electronically Signed By:Martinez Garrido
--- NOTE | ~2023-11-08 | XR_ITS ---
EXAMINATION: XR CHEST CLINICAL INFORMATION: Pain COMPARISON: 10/20/2022 TECHNIQUE: Frontal view of the chest was obtained. FINDINGS: Diffuse bronchial wall thickening. Left basilar subsegmental atelectasis. No pleural effusion or pneumothorax. Normal heart size and pulmonary vascularity. No intraperitoneal free air. XR/XR chest 1V IMPRESSION: Diffuse bronchial wall thickening as can be seen with bronchitis and/or asthma. No intraperitoneal free air.
[2023-11-08 21:38] VITALS: BP 124/80; PULSE 62; RESP 18; TEMP 36.4; O2SAT 99; BMI 36.1
[2023-11-08 22:02] LABS: MANUAL DIFF FLAG NO
[2023-11-08 22:09] LABS: Basophils Percent Auto 0.4 % (0-2); Eosinophils Absolute Auto 0.1 X10*3/uL (0.0-0.4); Eosinophils Percent Auto 0.7 % (0-4); Hematocrit 40.3 % (37.0-47.0); Hemoglobin 13.8 g/dl (12.0-16.0); Imm Gran Abs Auto 0.07 X10*3/uL (0.00-0.03); Imm Gran Pct Auto 0.6 % (0.0-0.4); Lymphocytes Absolute Auto 4.1 X10*3/uL (1.2-4.9); Lymphocytes Percent Auto 36.2 % (20-40); Mean Corpuscular HGB Conc 34.2 g/dl (31.0-35.0); Mean Corpuscular Hemoglobin 30.3 pg (27.0-33.0); Mean Corpuscular Volume 88.4 fL (80.0-98.0); Mean Platelet Volume 9.3 fL (9.4-12.3); Monocytes Percent Auto 8.8 % (2-11); Neutrophils Absolute Auto 6.1 x10*3/uL (2.0-8.3); Neutrophils Percent Auto 53.3 % (45-73); Platelet Count 260 X10*3/uL (160-400); Red Blood Count 4.56 X10*6/uL (4.20-5.50); Red Cell Distribution Width 12.6 % (11.0-16.0); White Blood Count 11.3 X10*3/uL (4.8-10.8)
[2023-11-08 22:16] LABS: Alanine Aminotransferase 21 U/L (0-31); Albumin Level 4.2 g/dL (3.5-5.0); Alkaline Phosphatase 77 U/L (39-117); Anion Gap 14 (12-20); Aspartate Amino Transferase 18 U/L (5-31); Bilirubin Total 0.4 mg/dL (0.0-1.0); Blood Urea Nitrogen 20 mg/dL (9-16); Calcium 9.7 mg/dL (8.4-10.2); Carbon Dioxide 25 mmol/L (22-29); Chloride 103 mmol/L (96-108); Creatinine Clr Calc Pharmacy 85.7; Estimated Glomerular Filt Rate > 60; Glucose Random 110 mg/dL (60-115); Lipase 9 U/L (8-78); Potassium 3.1 mmol/L (3.3-5.1); Sodium 139 mmol/L (135-145); Total Protein 7.2 g/dL (6.5-8.0)
[2023-11-08 22:25] LABS: Troponin-I High Sensitivity < 2.7 ng/L (<3.5-17.0)
[2023-11-08 23:36] VITALS: BP 128/69; PULSE 61; RESP 14; TEMP 36.6; O2SAT 96
--- NOTE | 2023-11-09 00:03 | ED_ITS ---
HPI - General Adult General Chief complaint: General Medical Stated complaint: Chest Pains Time Seen by Provider: 11/09/23 00:02 Source: patient, RN notes reviewed and old records reviewed Mode of arrival: ambulatory Limitations: no limitations History of Present Illness HPI narrative: 63-year-old female with past medical history significant for emphysema, hypertension, hyperlipidemia, pectus excavatum for evaluation chest pain Patient reports that she has chronic chest pain She states that around 8:30 p.m. she felt that her chest pain was different than her usual chest pain She had pain radiating down her left arm She still has mild pain but mostly in her left arm Denies any shortness of breath, jaw pain Patient reports that she had an upper endoscopy yesterday She states that she was told ?everything has been normal. ? Patient reports that she has had increasing nausea for the last week even prior to the endoscopy She states that her doctor told to go to the hospital if her chest pain ever feels different than her usual chest pain Related Data Home Medications Medication Instructions Recorded Confirmed atenolol 100 mg tablet 125 mg PO DAILY 07/24/23 atorvastatin 10 mg tablet 10 mg PO DAILY 07/24/23 spironolactone 25 mg tablet 25 mg PO DAILY 07/24/23 Previous Rx's Medication Instructions Recorded cyclobenzaprine 10 mg tablet 10 mg PO BEDTIME PRN muscle spasm 08/30/21 #3 tabs cephalexin 500 mg capsule 500 mg PO QID 7 days #28 caps 07/24/23 Allergies Allergy/AdvReac Type Severity Reaction Status Date / Time butalbital [From FIORINAL] Allergy Unknown HIVES Verified 11/08/23 21:42 doxycycline [DOXYCYCLINE] Allergy Unknown HIVES Verified 11/08/23 21:42 lorazepam [From ATIVAN] Allergy Unknown HIVES Verified 11/08/23 21:42 morphine [MORPHINE] Allergy Unknown HIVES Verified 11/08/23 21:42 Doxycycline Calcium Allergy Unknown Hives Uncoded 09/26/23 08:26 Review of Systems 2 Constitutional: Constitutional: Denies chills and Denies fever(s) Eyes: Eyes: Denies blurry vision ENT: Denies sore throat Cardiovascular: Cardiovascular: Reports chest pain and Denies dyspnea Respiratory: Respiratory: Denies cough and Denies dyspnea Musculoskeletal: Musculoskeletal: Denies back pain and Reports radiating pain into limb Integumentary/Breasts: Skin/Breast: Denies rash PMFSH Past Medical History Medical History Fibromyalgia HTN (hypertension) IBS (irritable bowel syndrome) Sleep apnea Social History Social History (System 09/26/23 @ 08:26 by Catalina Kirk) Alcohol intake: never Patient Tobacco Use Status: Never used Tobacco Smoked in Last 30 Days: No Use of substances other than those prescribed or required for medical reasons: Yes Substance Use Type: Marijuana Substance Use Frequency: Chronic Longstanding Last Used Substance: Hours (ago) Any prior treatment program specific to substance use: No Advance Directives: No Advance Directives Information Provided: Yes Physical Exam ED Vital Signs: Vital Signs - 24 hr 11/08/23 21:38 11/08/23 23:36 Temperature 97.6 F 97.8 F Pulse Rate 62 61 Respiratory Rate 18 14 Blood Pressure 124/80 128/69 Pulse Oximetry 99 96 Oxygen Delivery Method Room Air Room Air BMI result Body Mass Index 36.1 Course Reevaluation(s) Reevaluation #1: Patient's workup reviewed, her potassium was slightly low which was repleted, repeat troponin was also negative. Her chest x-ray shows possible bronchitis. The patient denies any cough, shortness of breath. She does have early stages of COPD which may be reflective the chest x-ray. Patient was instructed to follow the PCP for repeat labs in 1 week for her low potassium. Time: 01:26 Medical Decision Making Medical Decision Making MDM Narrative: 63 year female presents for evaluation chest pain. Her risk factors for ACS including hypertension, hyperlipidemia. She does endorse chronic chest pain. Her initial EKG is nonischemic, troponin is negative. Will get chest x-ray to evaluate for free air given the recent endoscopy. However I feel this is less likely. Will also get a repeat troponin to rule out ACS. Her pain started 830, [place] 4 hour troponin level Differential Diagnosis Differential Diagnoses: The differential diagnosis associated with the presentation includes Chest pain Costochondritis ACS Stomach perforation Radiculopathy Admission/Observation Consideration of admission/observation: Escalation of care including admission/observation considered 63-year-old female presents for evaluation of chest pain, if we cannot rule her out for ACS she will require admission Lab Data MDM Lab Attestation statement: I reviewed the patient's lab results. Leukocytosis to 11.3 K. No significant anemia. Normal platelet count. Patient's potassium was slightly low at 3.1, this will be repleted. No other significant electrolyte abnormalities. BUN is slightly elevated to 20. With a creatinine of 0.76. 11/08/23 21:57 11/08/23 21:57 Labs: Lab Results 11/08/23 11/09/23 Range/Units 21:57 00:36 WBC 11.3 H (4.8-10.8) X10*3/uL RBC 4.56 (4.20-5.50) X10*6/uL Hgb 13.8 (12.0-16.0) g/dl Hct 40.3 (37.0-47.0) % MCV 88.4 (80.0-98.0) fL MCH 30.3 (27.0-33.0) pg MCHC 34.2 (31.0-35.0) g/dl RDW 12.6 (11.0-16.0) % Plt Count 260 D (160-400) X10*3/uL MPV 9.3 L (9.4-12.3) fL Immature Gran % (Auto) 0.6 H (0.0-0.4) % Neut % (Auto) 53.3 (45-73) % Lymph % (Auto) 36.2 (20-40) % [place] % (Auto) 8.8 (2-11) % Eos % (Auto) 0.7 (0-4) % Baso % (Auto) 0.4 (0-2) % Lymph # (Auto) 4.1 (1.2-4.9) X10*3/uL [place] # (Auto) 1.0 (0.1-1.2) X10*3/uL Eos # (Auto) 0.1 (0.0-0.4) X10*3/uL Baso # (Auto) 0.0 (0.0-0.2) X10*3/uL Abs Immat Gran (auto) 0.07 H (0.00-0.03) X10*3/uL Absolute Neuts (auto) 6.1 (2.0-8.3) x10*3/uL Absolute Nucleated RBC 0.000 (0.0-0.012) X10*3/uL Nucleated RBC % (auto) 0.0 (0.0-0.2) /100WBC Sodium 139 (135-145) mmol/L Potassium 3.1 L (3.3-5.1) mmol/L Chloride 103 (96-108) mmol/L Carbon Dioxide 25 (22-29) mmol/L Anion Gap 14 (12-20) BUN 20 H (9-16) mg/dL Creatinine 0.76 (0.5-1.4) mg/dL Estim Creat Clear Calc 85.7 Estimated GFR > 60 Random Glucose 110 (60-115) mg/dL Calcium 9.7 (8.4-10.2) mg/dL Total Bilirubin 0.4 (0.0-1.0) mg/dL AST 18 (5-31) U/L ALT 21 (0-31) U/L Alkaline Phosphatase 77 (39-117) U/L Troponin I High Sens < 2.7 < 2.7 (<3.5-17.0) ng/L Total Protein 7.2 (6.5-8.0) g/dL Albumin 4.2 (3.5-5.0) g/dL Lipase 9 (8-78) U/L Independent Interpretation I performed an independent interpretation of an: EKG (Normal sinus rhythm with a rate of 65 beats per minute. No ischemic changes.) and Plain X-Ray (No free air) Radiology Impression Discussion of test interpretation with radiology: I have reviewed the radiologist's reading. (Diffuse bronchial wall thickening can be seen in bronchitis or asthma) Discharge Plan Discharge Clinical Impression: Chest pain, Acute hypokalemia Patient Disposition: Home, Self-Care Instructions: Chest Pain (ED) Additional Instructions: Your workup in the emergency room today was reassuring. The only abnormality was your potassium was just below normal at 3.1 Your given potassium supplementation today. I recommend you follow-up with your primary doctor in 1-2 weeks to have a repeat blood work and check her potassium Your EKG and the rest her blood work was reassuring Return for new or worsening symptoms Prescriptions: No Action cyclobenzaprine 10 mg tablet 10 mg PO BEDTIME PRN (Reason: muscle spasm) Qty: 3 0RF atenolol 100 mg tablet 125 mg PO DAILY atorvastatin 10 mg tablet 10 mg PO DAILY spironolactone 25 mg tablet 25 mg PO DAILY cephalexin 500 mg capsule 500 mg PO QID 7 Days Qty: 28 0RF
[2023-11-09 01:04] LABS: Troponin-I High Sensitivity < 2.7 ng/L (<3.5-17.0)
[2023-11-09] MEDS: Potassium Chloride ER 20 MEQ TAB.ER.PRT 40 MEQ PO (01:21)
== END 2023-11-09 01:36 | disposition home or self-care (01) ==
PROVIDERS: Physician Assistant; Emergency Provider Internal Medicine
DX: R07.89 Other chest pain (principal); E87.6 Hypokalemia; Z79.899 Other long term (current) drug therapy
CPT/HCPCS: 36415; 71045; 80053; 83690; 84484; 85025; 93005; 99283; 99284

== ENCOUNTER → 2023-11-08 21:19 | Outpatient (BNV) | payer MEDICARE, SELFPAY | PROVIDERS: Emergency Provider Internal Medicine; Visit Provider Internal Medicine Cardiovascular Disease | DX: R94.31 Abnormal electrocardiogram [ECG] [EKG] (principal); R07.9 Chest pain, unspecified | CPT/HCPCS: 93010 ==

== ENCOUNTER 2023-12-25 13:11 | Outpatient (AMB) | payer MEDICARE, SELFPAY ==
--- NOTE | 2023-12-25 13:12 | A.OFFVIS_ITS ---
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 Required: No Accompanied by: Self / Same As Patient Allergies butalbital [From FIORINAL] Allergy (Unknown, Verified 12/25/23 13:14) HIVES doxycycline [DOXYCYCLINE] Allergy (Unknown, Verified 12/25/23 13:14) HIVES lorazepam [From ATIVAN] Allergy (Unknown, Verified 12/25/23 13:14) HIVES morphine [MORPHINE] Allergy (Unknown, Verified 12/25/23 13:14) HIVES Doxycycline Calcium Allergy (Unknown, Uncoded 12/25/23 13:14) Hives Medication List - Last Reconciled 12/25/23 by Hamlet Alexander MD atenolol-chlorthalidone 100-25 mg 1 tab PO DAILY atorvastatin 10 mg PO DAILY spironolactone 25 mg PO DAILY HPI HPI Comments History of Present Illness Details Stephanie is here for consultation regarding chest pains. She has been seen in the past several years ago but not recently. She states that she has been getting chest pains off and on. Lot of times, they generally happen at rest and not exertional. However, she also notices discomfort in the jaw area and sometimes arms as well. The nonexertional nature of it seems atypical and she also describes this as rather sharp localized pain. The concern is that she has lot of family members who have coronary disease and other cardiac issues and hence she is worried. No other clear-cut cardiac symptoms. No known coronary disease or any other major cardiac comorbidities. [facility] Medical History (Updated 12/25/23 @ 13:22 by Hamlet Alexander MD) Fibromyalgia HTN (hypertension) Sleep apnea IBS (irritable bowel syndrome) Surgical History (Updated 12/25/23 @ 13:17 by Judie Medley) Hx of hand surgery Hx of hysterectomy Family History (Updated 12/25/23 @ 13:16 by Judie Medley) Mother Afib Father S/P quintuple vessel bypass Brother Afib Social History Alcohol intake: never Patient Tobacco Use Status: Never used Tobacco Substance Use Type: Marijuana Review of Systems Const Denies chills, Denies daytime sleepiness, Denies fatigue, Denies fever(s), Denies frequent falls, Denies night sweats, Denies snoring, Denies weakness, Denies weight gain and Denies weight loss Eyes Denies loss of vision ENT Denies dizziness and Denies hearing loss Card Denies chest pain with activity, Denies syncope, Denies rapid heart rate, Denies edema, Denies claudication, Denies leg edema, Denies lightheadedness, Denies palpitations, Denies dyspnea on exertion and Denies orthopnea Resp Denies cough, Denies excessive phlegm production, Denies dyspnea on exertion, Denies snoring and Denies wheezing GI Denies abdominal pain, Denies hematochezia, Denies change in bowel habits, Denies change in stool character, Denies heartburn, Denies nausea and Denies vomiting Denies hematuria, Denies urinary frequency and Denies dysuria Musc Denies arthralgias, Denies muscle weakness, Denies numbness and Denies tingling Skin/Breast Denies nail changes and Denies rash Neuro Denies Abnormal speech present, Denies dizziness, Denies syncope, Denies frequent falls, Denies loss of vision, Denies memory loss, Denies numbness, Denies tingling and Denies weakness Psych Denies depression and Denies memory loss Endo Denies fatigue and Denies palpitations Aller/Immun Denies wheezing Physical Exam Vital Signs: Last Vital Signs Pulse 69 12/25/23 13:14 BP 98/62 12/25/23 13:14 BMI result Body Mass Index 37.8 Const General: comfortable and no acute distress Orientation/consciousness: patient oriented x3 HEENT Other: Unremarkable Head: Yes normal to inspection Neck Neck: Yes normal visual inspection Chest Chest palpation & inspection: normal inspection of the chest Resp Auscultation: clear to auscultation bilaterally Cardio Palpation: normal PMI Heart sounds: S1 normal heart sound present, S2 normal heart sound present, no gallops, no murmurs and no rubs GI Palpation (GI): Soft to palpation Back/Spine/Pelvis Other: unremarkable Skin General skin exam: no rashes or lesions noted Neuro General: patient oriented x3 Speech: No Abnormal speech present Extrem General: Yes normal to inspection Psych Mental Status: mental status grossly normal Assessment & Plan Assessment & Plan (1) Precordial chest pain: Code(s): R07.2 - Precordial pain Plan In the recent EKG, underlying rhythm is sinus 65/Min; nonspecific ST-T changes; normal ID and corrected QT. in the EKG prior to that, there are some T inversions noted in anterior leads. Symptoms atypical but she has a strong family history and EKG also does not look completely normal. We will proceed with a coronary CTA for further evaluation. Echocardiogram for cardiac function assessment and any wall motion abnormalities or other pathology. Follow-up after the above. Orders: Orders CT Cardiac Coronary Angio Today I25.10 - Atherosclerotic heart disease of [place] coronary artery without angina pectoris CA echo transthoracic complete Today I25.10 - Atherosclerotic heart disease of [place] coronary artery without angina pectoris Coding Level of Care Code New Pt Level 4 (86454) Diagnoses Precordial chest pain R07.2
[2023-12-25 13:14] VITALS: BP 98/62; PULSE 69; BMI 37.8
== END 2023-12-25 13:33 | disposition home or self-care (01) ==
PROVIDERS: Visit Provider Internal Medicine
DX: R07.2 Precordial pain (principal)
CPT/HCPCS: 99204

== ENCOUNTER → 2023-12-25 13:11 | Outpatient (BNVA) | payer MEDICARE, SELFPAY | PROVIDERS: Visit Provider Internal Medicine | DX: R07.2 Precordial pain (principal) | CPT/HCPCS: 99202 ==

== ENCOUNTER → 2024-01-15 13:54 | Outpatient (REF) | payer MEDICARE, SELFPAY ==
--- NOTE | 2024-01-15 13:57 | CA_ITS ---
Transthoracic Echocardiogram Patient (Last, First, Middle): Stephanie Branham L Gender: Female Date of : 1960 Age: 63 Procedure Date: 01/15/2024 Procedure Type: Transthoracic Echocardiogram Location: OP Height: 165.1 cm Weight: 102.06 kg BSA: 2.08 m2 Heart Rate: bpm BP: 126 / 71 mmHg Export Documents Clerk: RYAN Referring MD: Hamlet Alexander MD [place] Cutter: Richie Jamil MD Symptoms: I25.10 - Atherosclerotic heart disease of [place] coronary artery without... Study Quality: Fair/No IV Access ECG Rhythm: Sinus Conclusions: - 1. Technically difficult study 2. Normal LV ejection fraction 60 65% with grade 1 diastolic dysfunction 3. Normal cardiac valvular Dopplers 4. No gross pericardial effusion Findings Left Ventricle Normal left ventricular size and systolic function. There is mildly increased left ventricular wall thickness. The visually estimated ejection fraction is between 60-65%. Spectral Doppler is indicative of an impaired relaxation filling pattern. E/E prime ratio is <8, consistent with normal filling pressures. Evidence suggests grade I (mild) diastolic dysfunction. Right Ventricle Normal right ventricular cavity size. Atria Both atria are normal in size. There is no evidence of interatrial shunt. Aortic Valve The aortic valve was not well visualized. There is no aortic valve stenosis. There is no aortic valve regurgitation. Mitral Valve Likely normal mitral valve structure and function. There is trace mitral valve regurgitation. There is no mitral valve stenosis. Pulmonic Valve The pulmonic valve was not well visualized. Tricuspid Valve Likely normal tricuspid valve structure and function. Tricuspid regurgitation envelope is inadequate for calculation of right ventricular systolic pressure. Great Vessels All visible segments of the aorta are normal in size. The pulmonary artery was not well visualized. There is no dilatation of the ascending aorta. Venous The inferior vena cava is normal in size and collapses greater than 50% with inspiration. Pericardium/Pleural There is no evidence of pericardial effusion. Prior Study Comparison No significant change compared to prior study dated: 01/02/2017. Measurements 2D Linear Measurements IVSd: 1.24 0.6-0.9/0.6-1.0 cm LVIDd: 4.61 3.9-5.3/4.2-5.9 cm LVIDd Index: 2.22 2.4-3.2/2.2-3.1 cm/m2 LVIDs: 2.78 2.0-3.6 cm LVPWd: 1.23 0.7-1.1 cm LA Diam: 3.10 2.7-3.8/3.0-4.0 cm LAIDs Index: 1.49 1.5-2.3 cm/m2 LV Mass: 267.20 67-162/88-224 g LV Mass Index: 128.46 43-95/49-115 g/m2 LVOT Diam: 2.20 3.0+(-)1.3 cm Mitral Valve MV Pk E: 0.96 MV PK A: 1.03 MV Decel Time: 303.00 E/A: 0.90 E'Lateral: 7.62 E'Medial: 8.81 E/E' Med: 10.90 E/E' Lat: 12.60 PHT: 89.00 MVA PHT: 2.47 Decel [place]: 3.16 Aortic Valve AoV Pk Kuldip: 1.53 AoV Mn Kuldip: 0.90 AoV VTI: 0.35 AoV Pk Grad: 9.00 Aov Mn Grad: 4.00 LIN Cont.VTI: 2.62 LVOT LVOT Pk Kuldip: 0.95 LVOT Mn Kuldip: 0.65 LVOT VTI: 0.24 LVOT Pk Grad: 4.00 LVOT Mn Grad: 2.00 LVOT Diam: 2.20 LVOT Area: 3.80 Diastolic Function MV Pk E: 0.96 MV Pk A: 1.03 E/A: 0.90 E'Medial: 8.81 E/E' Med: 10.90 E' Laterial: 7.62 E/E' Lat: 12.60 Right Ventricle TAPSE (mm): 27.70 TVS' Kuldip: 14.90 Tricuspid Valve RA Press: 3.00 Great Vessels Aorta Sinus of Valsalva: 3.52 2.0-3.[address] [place]: 3.02 1.7-3.4 cm Ao Asc: 3.40 2.1-3.4 cm Updated in Other Vendor System with Status of Final Richie Jamil MD electronically signed on 01/16/2024 4:22:11 PM with status of Final
== END ==
LOC: HO.CARD 13:54
PROVIDERS: PCP Internal Medicine; Visit Provider Internal Medicine
DX: I25.10 Atherosclerotic heart disease of native coronary artery without angina pectoris (principal)
CPT/HCPCS: 93306

== ENCOUNTER → 2024-01-15 13:57 | Outpatient (BNV) | payer MEDICARE, SELFPAY | PROVIDERS: PCP Internal Medicine; Visit Provider Internal Medicine Cardiovascular Disease | DX: I25.10 Atherosclerotic heart disease of native coronary artery without angina pectoris (principal) | CPT/HCPCS: 93306 ==

== ENCOUNTER 2024-02-23 09:16 | Outpatient (AMB) | payer MEDICARE, SELFPAY ==
--- NOTE | 2024-02-23 09:54 | AM.OFFWIN_ITS ---
Intake Vital Signs 02/23/24 10:07 Height 5 ft 5 in BP 120/82 Blood Pressure Location Rt brachial Position Sitting Pulse 91 Pulse Source Pulse Oximeter Pulse Oximetry (%) 94 Oxygen Delivery Method Room Air Intake Visit Reasons: Injury to L foot/Pain under big toe/injury Intake Note: pt says 10 days ago she bent her foot back on her left big toe and her a pop and the swelling went down but the pain is getting worse Patient Tobacco Use Status: Never used Tobacco Allergies butalbital [From FIORINAL] Allergy (Unknown, Verified 02/23/24 10:06) HIVES doxycycline [DOXYCYCLINE] Allergy (Unknown, Verified 02/23/24 10:06) HIVES lorazepam [From ATIVAN] Allergy (Unknown, Verified 02/23/24 10:06) HIVES morphine [MORPHINE] Allergy (Unknown, Verified 02/23/24 10:06) HIVES Doxycycline Calcium Allergy (Unknown, Uncoded 02/23/24 10:06) Hives HPI Injury to L foot/Pain under big toe/injury HPI Details Patient is a 63-year-old female comes to the walk-in clinic complaining of persistent pain and swelling to her left great toe after a hyper flexion injury on the stairs about 10 days ago, that caused a popping sensation and weakness. She reports that she has elevated the foot and iced it, which has decreased the overall pain level a bit. Walking is difficult however, as is any movement as it causes pain. No reported numbness or tingling. [facility] Medical History Fibromyalgia HTN (hypertension) Sleep apnea IBS (irritable bowel syndrome) Surgical History Hx of hand surgery Hx of hysterectomy Family History Mother Afib Father S/P quintuple vessel bypass Brother Afib Social History Alcohol intake: never Patient Tobacco Use Status: Never used Tobacco Substance Use Type: Marijuana Review of Systems Const All systems reviewed & are unremarkable except as noted in HPI and below Physical Exam Vital Signs: Last Vital Signs Pulse 91 02/23/24 10:07 BP 120/82 02/23/24 10:07 Pulse Ox 94 02/23/24 10:07 Oxygen Delivery Method Room Air 02/23/24 10:07 Extrem Left lower extremity: full ROM and foot Details: normal capillary refill, tenderness, abnormal ROM of toe, edema (First proximal IP joint with tenderness, edema and weakness) and vascular exam (Mild ecchymosis at 1st IP joint) Details: dorsalis pedis pulse present, posterior tibial pulse present and normal capillary refill; not cool and no cyanosis; no foreign bodies and no puncture wound Results Reviewed Results Reviewed: Plain film x-rays of the left foot shows questionable fracture at medial aspect of 1st distal phalanx, per my wet read, that would correlate with patient's symptoms. There is also a radiodensity at the 1st metatarsal head that does not correlate with symptoms Assessment & Plan Assessment & Plan (1) Great toe pain: Code(s): M79.676 - Pain in unspecified toe(s) Qualifiers: Laterality: left Qualified Code(s): M79.675 - Pain in left toe(s) Plan Plain film x-rays of the left foot shows questionable fracture at medial aspect of 1st distal phalanx, per my wet read. There is also a radiodensity at the 1st metatarsal head that also correlates with the patient's swelling and pain. She was placed in a postop shoe today, which assisted with her ambulation, and was advised to follow-up with orthopedist in the next week or two. Referral information discussed at the time of visit. Orders: Orders XR foot LT min 3V 02/23/24 M79.675 - Pain in left toe(s) Coding Level of Care Code Est Pt Level 4 (44927) Diagnoses Pain of left great toe M79.675 Laterality: left
[2024-02-23 10:07] VITALS: BP 120/82; PULSE 91; O2SAT 94
== END 2024-02-23 10:57 | disposition home or self-care (01) ==
PROVIDERS: PCP Internal Medicine; Visit Provider Physician Assistant Medical
DX: M79.675 Pain in left toe(s) (principal)
CPT/HCPCS: 99051; 99214

== ENCOUNTER 2024-02-23 10:21 | Outpatient (REF) | payer MEDICARE, SELFPAY ==
--- NOTE | ~2024-02-23 | XR_ITS ---
EXAMINATION: XR FOOT, LEFT CLINICAL INFORMATION: Pain COMPARISON: Left foot radiograph from 05/08/2021 TECHNIQUE: AP, lateral, and oblique views of the left foot. FINDINGS: No acute visible fracture or dislocation. A linear radiodensity measuring almost 6 mm is redemonstrated along the lateral sesamoid of the first metatarsal head and visualized along the plantar soft tissues on lateral projection. Joint spaces and alignment are otherwise maintained. XR/XR foot LT min 3V IMPRESSION: 1. No acute visible fracture or dislocation. 2. A linear radiodensity measuring almost 6 mm is redemonstrated along the lateral sesamoid of the first metatarsal head and visualized along the plantar soft tissues on lateral projection.
== END 2024-02-23 10:22 | disposition home or self-care (01) ==
LOC: HO.HMGCX 10:21
PROVIDERS: PCP Internal Medicine; Visit Provider Physician Assistant Medical
DX: M79.675 Pain in left toe(s) (principal)
CPT/HCPCS: 73630

== ENCOUNTER 2024-03-19 10:22 | Outpatient (REF) | payer MEDICARE, SELFPAY ==
[2024-03-19 12:18] LABS: Anion Gap 13 (12-20); Blood Urea Nitrogen 16 mg/dL (9-16); Calcium 9.9 mg/dL (8.4-10.2); Carbon Dioxide 29 mmol/L (22-29); Chloride 101 mmol/L (96-108); Estimated Glomerular Filt Rate > 60; Glucose Random 90 mg/dL (60-115); Potassium 3.6 mmol/L (3.3-5.1); Sodium 139 mmol/L (135-145)
== END 2024-03-19 10:23 | disposition home or self-care (01) ==
LOC: HO.LAB 10:22
PROVIDERS: PCP Internal Medicine; Visit Provider Internal Medicine
DX: R07.2 Precordial pain (principal)
CPT/HCPCS: 36415; 80048

== ENCOUNTER 2024-04-08 13:00 | Outpatient (AMB) | payer MEDICARE, SELFPAY ==
[2024-04-08 13:20] VITALS: BP 118/62; PULSE 86; O2SAT 96; BMI 34.5
--- NOTE | 2024-04-08 13:20 | MHC.OFFVIS ---
Vital Signs 04/08/24 13:20 Height 5 ft 7 in Weight 220 lb 7.396 oz BMI 34.5 BP 118/62 Blood Pressure Location Lt brachial Position Sitting Pulse 86 Pulse Source Pulse Oximeter Pulse Oximetry (%) 96 Oxygen Delivery Method Room Air Intake Visit Reasons: f/up CTA and test/ HS Allergies butalbital [From FIORINAL] Allergy (Unknown, Verified 02/23/24 10:06) HIVES doxycycline [DOXYCYCLINE] Allergy (Unknown, Verified 02/23/24 10:06) HIVES lorazepam [From ATIVAN] Allergy (Unknown, Verified 02/23/24 10:06) HIVES morphine [MORPHINE] Allergy (Unknown, Verified 02/23/24 10:06) HIVES Doxycycline Calcium Allergy (Unknown, Uncoded 02/23/24 10:06) Hives HPI Comments Details: 63-year-old female presents today for a follow-up. She states she has been doing well. Feeling anxious regarding the results due to family history of heart disease. She had a CTA and echocardiogram done. She has a history of smoking. 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 [facility] Medical History (Updated 04/09/24 @ 10:59 by Tori Ron NP) Coronary artery calcification seen on CT scan Fibromyalgia HTN (hypertension) Sleep apnea IBS (irritable bowel syndrome) Surgical History Hx of hand surgery Hx of hysterectomy Family History Mother Afib Father S/P quintuple vessel bypass Brother Afib Social History Alcohol intake: never Patient Tobacco Use Status: Never used Tobacco Substance Use Type: Marijuana Review of Systems Const Denies weakness ENT Denies dizziness Card Denies chest pain, Denies chest pain with activity, Denies syncope, Denies rapid heart rate, Denies pedal edema, Denies edema, Denies leg edema, Denies lightheadedness, Denies palpitations, Denies dyspnea, Denies dyspnea on exertion and Denies orthopnea Resp Denies cough, Denies dyspnea and Denies dyspnea on exertion GI Denies hematochezia and Denies change in stool character Musc Denies abnormal gait, Denies muscle cramps, Denies muscle weakness, Denies numbness, Denies radiating pain into limb and Denies tingling Neuro Denies abnormal gait, Denies dizziness, Denies syncope, Denies numbness, Denies tingling and Denies weakness Endo Denies palpitations Physical Exam Vital Signs: Last Vital Signs Pulse 86 04/08/24 13:20 BP 118/62 04/08/24 13:20 Pulse Ox 96 04/08/24 13:20 Oxygen Delivery Method Room Air 04/08/24 13:20 BMI result Body Mass Index 34.5 Const General: healthy appearing and no acute distress Orientation/consciousness: patient oriented x3 HEENT Head: Yes normal to inspection Eyes General: appearance normal, both eyes and all related structures Neck Neck: Yes normal visual inspection Chest Chest palpation & inspection: normal inspection of the chest Resp Effort & Inspection: normal respiratory effort Auscultation: clear to auscultation bilaterally Cardio Jugular venous distension: no JVD Palpation: normal PMI Rate: regular rate Rhythm: regular rhythm Heart sounds: S1 normal heart sound present, S2 normal heart sound present, no click, no gallops, no murmurs and no rubs GI Inspection: Yes normal to inspection Palpation (GI): Soft to palpation Skin General skin exam: no rashes or lesions noted Neuro General: patient oriented x3 Extrem General: Yes normal to inspection Psych Appearance: grossly normal Assessment & Plan Assessment & Plan (1) Coronary artery calcification seen on CT scan: Code(s): I25.10 - Atherosclerotic heart disease of [place] coronary artery without angina pectoris Category: Medical Plan CTA on 03/26/2024 shows moderate calcifications in the LAD causing less than 50% diameter stenosis. No evidence of hemodynamically significant CAD. She is currently on atorvastatin 10mg QD. She is due for a lipid panel in May with her PCP and will have it forwarded to us. Informed her statin may need to be adjusted pending those labs Discussed in detail heart healthy lifestyle. Patient agreed to plan. Coding Level of Care Code Est Pt Level 3 (25314) Diagnoses Coronary artery calcification seen on CT scan I25.10
== END 2024-04-08 13:44 | disposition home or self-care (01) ==
PROVIDERS: PCP Internal Medicine; Visit Provider Nurse Practitioner
DX: I25.10 Atherosclerotic heart disease of native coronary artery without angina pectoris (principal)
CPT/HCPCS: 99213

== ENCOUNTER → 2024-04-08 13:00 | Outpatient (BNVA) | payer MEDICARE, SELFPAY | PROVIDERS: Visit Provider Nurse Practitioner | DX: I25.10 Atherosclerotic heart disease of native coronary artery without angina pectoris (principal); Z79.899 Other long term (current) drug therapy | CPT/HCPCS: 99212 ==

== ENCOUNTER 2024-10-15 19:59 | Emergency (ER) | payer MEDICARE, SELFPAY ==
--- NOTE | 2024-10-15 | ECG_ITS ---
Test Reason : CHEST DISCOMFORT Blood Pressure : / mmHG Vent. Rate : 059 BPM Atrial Rate : 059 BPM P-R Int : 152 ms QRS Dur : 094 ms QT Int : 472 ms P-R-T Axes : 005 -25 -20 degrees QTc Int : 467 ms Sinus bradycardia Otherwise normal ECG When compared with ECG of 08-NOV-2023 21:19, No significant change was found Referred By: Generic ED Physician Electronically Signed By:SHELLY TORRES MD
--- NOTE | ~2024-10-15 | XR_ITS ---
EXAMINATION: XR CHEST 2 VIEWS CLINICAL INFORMATION: Pain. COMPARISON: XR CHEST 11/09/2023. TECHNIQUE: 2 views of the chest were obtained. FINDINGS: Normal appearance of the cardiomediastinal structures. No effusions or pneumothoraces. Normal pattern of pulmonary vasculature. No pulmonary consolidation is identified. No suspicious skeletal abnormalities. Minimal multilevel anterior endplate osteophytosis of the thoracic spine. XR/XR chest 2V IMPRESSION: No acute cardiopulmonary abnormalities. Electronically signed by: Doroteo Frederick MD 10/15/2024 11:33 PM [facility]
[2024-10-15 20:03] VITALS: BP 127/73; PULSE 64; O2SAT 100
[2024-10-15 20:12] VITALS: BP 122/64; PULSE 60; RESP 12; TEMP 36.8; O2SAT 98; BMI 37.9
--- NOTE | 2024-10-15 20:18 | PC.NURSE ---
Pt a&ox3, no signs of distress. Pt denies pain at this time Plan of care ongoing.
--- NOTE | 2024-10-15 20:48 | PC.NURSE ---
Pt reporting cp, and overall not feeling well. Provider with pt Plan of care ongoing.
--- NOTE | 2024-10-15 20:54 | ED.GENADULT ---
HPI - General Adult General Chief complaint: General Medical Stated complaint: chest pressure, nausea, abd pain Time Seen by Provider: 10/15/24 20:43 Source: patient Limitations: no limitations History of Present Illness ED Provider: Tammy Finn PA-C HPI narrative: 64-year-old female seen in the ED for reports of 06/04 constant chest pressure that radiates to the left arm for approximately 1 day. Also reporting nausea, upper back pain, excess sweating, dizziness, chills. According to patient they were diagnosed with strep throat and have been on penicillin since Sunday. Aside from penicillin, they deny recent medication changes. Able to keep down food and fluids; today has no appetite. Tried [id number] Tylenol for symptoms with no relief; movement makes symptoms worse. Has a known history of pectus excavatum which they report is likely the cause of their current symptoms. Denies shortness of breath, palpitations, abdominal pain. Denies fever, cold-like symptoms. Onset (ago): day(s) (Nausea began 3 days ago. All other symptoms began today.) Location: chest and abdomen Radiation: other (Left arm) Severity: severe and similar to prior episodes Severity scale (1-10): 7 Quality: constant and other (Pressure) Pain Consistency: constant Relieving factors: none Exacerbating factors: movement Associated symptoms: chest pain, loss of appetite, weakness and other (Chills, nausea) Treatments prior to arrival: other ( OTC Tylenol with no relief) Related Data Home Medications ?Medication ?Instructions ?Recorded ?Confirmed atorvastatin 10 mg tablet 10 mg PO DAILY 07/24/23 12/25/23 spironolactone 25 mg tablet 25 mg PO DAILY 07/24/23 12/25/23 atenolol 100 mg-chlorthalidone 25 1 tab PO DAILY 12/25/23 12/25/23 mg tablet Previous Rx's ?Medication ?Instructions ?Recorded ketorolac 10 mg tablet 10 mg PO Q6H PRN pain #20 tabs 10/16/24 ondansetron 4 mg disintegrating 4 mg PO Q8H PRN nausea and 10/16/24 tablet vomiting #10 tabs Allergies Allergy/AdvReac Type Severity Reaction Status Date / Time butalbital [From FIORINAL] Allergy Unknown HIVES Verified 10/15/24 20:14 doxycycline [DOXYCYCLINE] Allergy Unknown HIVES Verified 10/15/24 20:14 lorazepam [From ATIVAN] Allergy Unknown HIVES Verified 10/15/24 20:14 morphine [MORPHINE] Allergy Unknown HIVES Verified 10/15/24 20:14 Doxycycline Calcium Allergy Unknown Hives Uncoded 10/15/24 20:14 Review of Systems Review of Systems: Neuro: Alert and oriented. Reports numbness and tingling down the left arm. Reports weakness, lightheadedness, dizziness. Denies numbness and tingling in any other extremities. Constitutional: Reports nausea, weakness, chills. Denies fever, cold or flu-like symptoms; reports being diagnosed with strep throat HEENT: Denies head pain or headache. Denies visual disturbances, discharge or redness of the eyes. Denies auditory changes, tinnitus. Denies nasal congestion, nasal discharge. Denies throat discomfort, difficulty swallowing. Cardiac: Reports chest pain; 7/10, centralized, constant pressure. Denies palpitations Pulmonary: Denies shortness of breath, cough, sputum production, wheezing GI: Reports nausea. Denies abdominal pain but reports that nausea causes severe discomfort. Denies vomiting, diarrhea, constipation MSK: Reports numbness and tingling of the left arm. Reports full range of motion in all extremities Integumentary: Denies changes to skin including erythema, pruritus, rashes. Yes all other systems are reviewed and are negative Constitutional: Constitutional: Reports as per HPI, Reports no additional constitutional complaints, Reports chills, Reports excessive sweating, Reports poor appetite and Reports weakness Eyes: Eyes: Reports as per HPI and Reports no additional eye complaints ENT: Reports system reviewed and no additional complaints, except as documented, Reports as per HPI and Reports Normal hearing present Cardiovascular: Cardiovascular: Reports as per HPI, Reports no additional cardiovascular complaints, Reports chest pain and Reports epigastric discomfort Respiratory: Respiratory: Reports as per HPI and Reports no additional respiratory complaints Gastrointestinal: Gastrointestinal: Reports as per HPI, Reports no additional gastrointestinal complaints and Reports nausea Musculoskeletal: Musculoskeletal: Reports no additional musculoskeletal complaints, Reports as per HPI, Reports numbness and Reports tingling Comments: Numbness and tingling of the left Integumentary/Breasts: Skin/Breast: Reports system reviewed and no additional complaints, except as docu and Reports as per HPI Neurologic: Reports system reviewed and no additional complaints, except as documented, Reports as per HPI, Reports Normal hearing present, Reports numbness, Reports tingling and Reports weakness Endocrine: Endocrine: Reports excessive sweating PMFSH Past Medical History Medical History (Updated 10/16/24 @ 00:40 by MARGARETTE Nunez) Coronary artery calcification seen on CT scan Fibromyalgia HTN (hypertension) Sleep apnea IBS (irritable bowel syndrome) Surgical History Hx of hand surgery Hx of hysterectomy Family History Family History Mother Afib Father S/P quintuple vessel bypass Brother Afib Social History Social History Alcohol intake: never Patient Tobacco Use Status: Never used Tobacco Smoked in Last 30 Days: No Use of substances other than those prescribed or required for medical reasons: Yes Substance Use Type: Marijuana Advance Directives: No Advance Directives Information Provided: Yes Physical Exam ED Vital Signs: Vital Signs - 24 hr 10/15/24 20:12 10/16/24 00:00 10/16/24 00:54 Temperature 98.3 F 98.2 F Pulse Rate 60 66 Respiratory Rate 12 20 14 Blood Pressure 122/64 137/66 Pulse Oximetry 98 99 Oxygen Delivery Method Room Air Room Air 10/16/24 00:56 Temperature 98.2 F Pulse Rate 66 Respiratory Rate 20 Blood Pressure 137/66 Pulse Oximetry 99 Oxygen Delivery Method Room Air BMI result Body Mass Index 37.9 Const Other: Patient is found lying in bed awake and alert. They appear to be mildly uncomfortable. Patient is able to speak in complete in full sentences. General: cooperative, healthy appearing, comfortable, alert and awake Nutritional Appearance: average body habitus and well nourished Orientation/consciousness: oriented to person, oriented to place, oriented to time and patient oriented x3 HENMT Other: Head is normocephalic atraumatic; no abnormalities noted upon examination. Hearing is intact; no notable abnormalities upon examination of the external ears. Nose appears to be intact; no discharge, bleeding. Face is symmetric with no noted abnormalities. Head: Yes normal to inspection, Yes normocephalic and Yes atraumatic Ears: hearing grossly normal bilaterally General nose exam: Normal external nose present and Normal nares present Face and sinus: Yes normal facial exam and Yes face symmetric Mouth: lip normal Eyes Other: Pupils are PERRL. External structures of eyes appear to be intact. General: appearance normal, both eyes and all related structures Periorbital: periorbital findings normal Eyelids: Yes eyelids normal Conjunctivae: conjunctivae normal Sclerae: sclerae normal Pupils: Equal, round and reactive pupils present EOM: EOMs intact bilaterally Neck Other: Full range of motion of the cervical spine; no noted physical abnormalities Neck: Yes normal visual inspection and Yes full ROM Chest Other: Pain upon palpation of the chest wall Resp Other: Lungs are clear to auscultation bilaterally; no noted wheezing, rhonchi. Patient is able to speak in complete and full sentences without difficulty. No signs of respiratory distress Effort & Inspection: normal respiratory effort and able to speak in complete sentences Auscultation: clear to auscultation bilaterally Cardio Other: Heart is regular for rate, rhythm, quality. No murmurs, rubs, gallops. Rate: regular rate Rhythm: regular rhythm GI Other: Abdomen is soft, nontender, nondistended. Discomfort is noted upon palpation of the central chest wall and epigastric region. Bowel sounds are present Inspection: Yes normal to inspection Palpation (GI): Soft to palpation Auscultation: normal bowel sounds Back/Spine/Pelvis Other: No tenderness upon palpation of the cervical, thoracic, lumbar spine. Patient is able to move freely and has full range of motion of the cervical spine Skin Other: Skin is warm, dry, appropriate regular. No noted erythema, rashes. General skin exam: no rashes or lesions noted Neuro Other: Patient is alert and oriented. Able to answer questions appropriately. Speaking in full and complete sentences without difficulty. Positive CMS in all extremities General: oriented to person, oriented to place, oriented to time and patient oriented x3 Cranial nerves: Yes Equal, round and reactive pupils present and Yes Normal hearing present Cognition (Neuro): normal cognition Extrem Other: No noted pedal edema. General: Yes normal to inspection and Yes full ROM Psych Other: No signs of acute distress. Acting appropriately with normal affect,, cooperative Appearance: grossly normal Mental Status: mental status grossly normal Speech and movement: Normal speech and movement present Affect: normal affect Attitude: cooperative Thought process: Normal thought process present Thought content: Normal thought content present Insight: Good insight present (Psych) Judgement: Good judgement present (Psych) Medications Administered Discontinued Medications Generic Name Dose Route Start Last Admin Trade Name Terry PRN Reason Stop Dose Admin Ketorolac Tromethamine 15 mg 10/15/24 23:57 10/16/24 00:04 Ketorolac Tromethamine 15 Mg/Ml Vial IVPUSH 10/15/24 23:58 15 mg ONCE ONE Administration Ondansetron HCl 4 mg 10/15/24 23:57 10/16/24 00:02 Ondansetron Hcl 4 Mg/2 Ml Vial IVPUSH 10/15/24 23:58 4 mg ONCE ONE Administration Medical Decision Making Medical Decision Making [facility] Narrative: I Tammy Finn PA-C have personally assessed and managed the patient, PASTOR Toth observed in helped to formulate his documentation 64-year-old female seen in the ED for reports of 7/10 constant chest pressure that radiates to the left arm for approximately 1 day. Also reporting nausea, upper back pain, excess sweating, dizziness, chills. According to patient they were diagnosed with strep throat and have been on penicillin since Sunday. Aside from penicillin, they deny recent medication changes. Able to keep down food and fluids; today has no appetite. Tried [id number] Tylenol for symptoms with no relief; movement makes symptoms worse. Has a known history of pectus excavatum which they report is likely the cause of their current symptoms. Denies shortness of breath, palpitations, abdominal pain. Denies fever, cold-like symptoms. DDx - pectus excavatum related symptoms; likely as patient reports that these are typical symptoms they experience with their diagnosed disorder. - GERD; consider given nausea, epigastric discomfort, chest pain. - myocardial infarction; consider given report of 7/10 chest pain, with radiation to the left arm, nausea, epigastric discomfort. - bowel obstruction; consider given her reports of epigastric discomfort, nausea, chest pain. Unlikely as they deny abdominal pain or discomfort, constipation; physical exam findings are also not consistent with bowel obstruction as abdomen was soft, nontender, nondistended with present bowel sounds - medication reaction; consider given patient was recently started on penicillin and are now experiencing severe nausea with the associated epigastric discomfort. Unlikely as patient has been on penicillin in the past without major concerns. - COVID/flu/RSV: Consider given nausea, chills, epigastric discomfort. Unlikely as patient denies fever, cold-like symptoms. - strep throat; considered as a possibility that penicillin is not an effective antibiotic for patient. Unlikely as patient has been on penicillin for approximately 4 days now and no longer complains of throat discomfort, fever, difficulty swallowing; also unlikely to cause chest pain with the associated radiation down the left arm Plan - antiemetic; treat nausea as patient reports this is severe and has been lasting for approximately 4 days - vitals; monitor to ensure no significant changes - EKG; to assess for underlying cardiac, pulmonary, electrolyte abnormality - CBC; to assess for any underlying hematologic or infectious process - CMP; to assess for underlying metabolic or electrolyte abnormality - troponin; due to complaint of chest pain, assess for any elevation of troponin levels - UA; assess for underlying infectious process, assess kidney function - chest and abdominal x-ray; assess for cardiac, pulmonary, GI abnormalities per Tammy Finn PA-C I agree with the above differential, however given chest back and abdominal pain I would have included dissection. The patient is not dissecting, she is not overtly hypertensive, she is neurovascularly intact in radial pulses are +2 bilaterally. The patient is having full body pain, she has been treated for strep, she does not have a fever right now, think her general malaise is simply secondary to her infection. We will be giving Toradol and Zofran. She also has chronic costochondritis, the Toradol will help. Screening labs including cardiac enzymes EKG and chest x-ray were already obtained from triage, this is not ACS. I have independently reviewed the following tests: Labs: No leukocytosis, not anemic, troponin negative EKG: Sinus [place], rate of 59, no ischemic changes no ectopy Chest x-ray: XR/XR chest 2V IMPRESSION: No acute cardiopulmonary abnormalities. Electronically signed by: Doroteo Frederick MD 10/15/2024 11:33 PM [facility] Lab Data 10/15/24 21:06 10/15/24 21:06 Labs: Lab Results 10/15/24 Range/Units 21:06 WBC 11.3 H (4.8-10.8) X10*3/uL RBC 4.46 (4.20-5.50) X10*6/uL Hgb 13.7 (12.0-16.0) g/dl Hct 38.6 (37.0-47.0) % MCV 86.5 (80.0-98.0) fL MCH 30.7 (27.0-33.0) pg MCHC 35.5 H (31.0-35.0) g/dl RDW 12.7 (11.0-16.0) % Plt Count 234 (160-400) X10*3/uL MPV 8.9 L (9.4-12.3) fL Immature Gran % (Auto) 0.4 (0.0-0.4) % Neut % (Auto) 63.7 (45-73) % Lymph % (Auto) 27.7 (20-40) % [place] % (Auto) 7.3 (2-11) % Eos % (Auto) 0.5 (0-4) % Baso % (Auto) 0.4 (0-2) % Lymph # (Auto) 3.1 (1.2-4.9) X10*3/uL [place] # (Auto) 0.8 (0.1-1.2) X10*3/uL Eos # (Auto) 0.1 (0.0-0.4) X10*3/uL Baso # (Auto) 0.1 (0.0-0.2) X10*3/uL Abs Immat Gran (auto) 0.05 H (0.00-0.03) X10*3/uL Absolute Neuts (auto) 7.2 (2.0-8.3) x10*3/uL Absolute Nucleated RBC 0.000 (0.0-0.012) X10*3/uL Nucleated RBC % (auto) 0.0 (0.0-0.2) /100WBC Sodium 140 (135-145) mmol/L Potassium 3.5 (3.3-5.1) mmol/L Chloride 100 (96-108) mmol/L Carbon Dioxide 26 (22-29) mmol/L Anion Gap 18 (12-20) BUN 18 H (9-16) mg/dL Creatinine 0.70 (0.5-1.4) mg/dL Estim Creat Clear Calc 94.3 Estimated GFR > 60 Random Glucose 102 (60-115) mg/dL Calcium 10.8 H D (8.4-10.2) mg/dL Magnesium 1.9 (1.6-2.6) mg/dL Total Bilirubin 0.8 (0.0-1.0) mg/dL AST 26 (5-31) U/L ALT 25 (0-31) U/L Alkaline Phosphatase 86 (39-117) U/L Troponin I High Sens < 2.7 (<3.5-17.0) ng/L Total Protein 6.9 (6.5-8.0) g/dL Albumin 4.0 (3.5-5.0) g/dL Discharge Plan Discharge Clinical Impression: Costochondritis, Nausea, Abdominal pain Patient Disposition: Home, Self-Care Instructions: Costochondritis (ED), Acute Nausea and Vomiting (ED), Abdominal Pain (ED) Additional Instructions: All of your screening labs including a cardiac enzymes were normal. There were no concerning changes on your EKG and your chest x-ray is clear. You were treated for costochondritis, you responded to Toradol, I am sending you with the same medication, ketorolac, take it as needed for your pain. I am sending you with Zofran, use this as needed for your nausea. Follow up with your primary care provider as needed. Prescriptions: New ketorolac 10 mg tablet 10 mg PO Q6H PRN (Reason: pain) Qty: 20 0RF Rx Instructions: maximum total duration of 5 days from all oral, intranasal, or parenteral formulations. Patient received an IV dose of Toradol here in the emergency department. ondansetron 4 mg tablet,disintegrating 4 mg PO Q8H PRN (Reason: nausea and vomiting) Qty: 10 0RF No Action atorvastatin 10 mg tablet 10 mg PO DAILY spironolactone 25 mg tablet 25 mg PO DAILY atenolol-chlorthalidone 100-25 mg tablet 1 tab PO DAILY Interventions: ED Discharge Assessment Last Done: 10/16/24 00:56 Discharge Date/Time: 10/16/24 00:59 Print Language: Serbian
[2024-10-15 21:10] LABS: MANUAL DIFF FLAG NO
[2024-10-15 21:12] LABS: Basophils Absolute Auto 0.1 X10*3/uL (0.0-0.2); Basophils Percent Auto 0.4 % (0-2); Eosinophils Absolute Auto 0.1 X10*3/uL (0.0-0.4); Eosinophils Percent Auto 0.5 % (0-4); Hematocrit 38.6 % (37.0-47.0); Hemoglobin 13.7 g/dl (12.0-16.0); Imm Gran Abs Auto 0.05 X10*3/uL (0.00-0.03); Imm Gran Pct Auto 0.4 % (0.0-0.4); Lymphocytes Absolute Auto 3.1 X10*3/uL (1.2-4.9); Lymphocytes Percent Auto 27.7 % (20-40); Mean Corpuscular HGB Conc 35.5 g/dl (31.0-35.0); Mean Corpuscular Hemoglobin 30.7 pg (27.0-33.0); Mean Corpuscular Volume 86.5 fL (80.0-98.0); Mean Platelet Volume 8.9 fL (9.4-12.3); Monocytes Absolute Auto 0.8 X10*3/uL (0.1-1.2); Monocytes Percent Auto 7.3 % (2-11); Neutrophils Absolute Auto 7.2 x10*3/uL (2.0-8.3); Neutrophils Percent Auto 63.7 % (45-73); Platelet Count 234 X10*3/uL (160-400); Red Blood Count 4.46 X10*6/uL (4.20-5.50); Red Cell Distribution Width 12.7 % (11.0-16.0); White Blood Count 11.3 X10*3/uL (4.8-10.8)
[2024-10-15 21:30] LABS: Alanine Aminotransferase 25 U/L (0-31); Alkaline Phosphatase 86 U/L (39-117); Anion Gap 18 (12-20); Aspartate Amino Transferase 26 U/L (5-31); Bilirubin Total 0.8 mg/dL (0.0-1.0); Blood Urea Nitrogen 18 mg/dL (9-16); Calcium 10.8 mg/dL (8.4-10.2); Carbon Dioxide 26 mmol/L (22-29); Chloride 100 mmol/L (96-108); Creatinine Clr Calc Pharmacy 94.3; Estimated Glomerular Filt Rate > 60; Glucose Random 102 mg/dL (60-115); Magnesium 1.9 mg/dL (1.6-2.6); Potassium 3.5 mmol/L (3.3-5.1); Sodium 140 mmol/L (135-145); Total Protein 6.9 g/dL (6.5-8.0)
[2024-10-15 21:39] LABS: Troponin-I High Sensitivity < 2.7 ng/L (<3.5-17.0)
--- NOTE | 2024-10-15 23:08 | PC.NURSE ---
Pt requesting and given water. Plan of care ongoing.
[2024-10-16] VITALS: BP 137/66; PULSE 66; RESP 20; TEMP 36.8; O2SAT 99
[2024-10-16] MEDS: ondansetron HCL 4 MG/2 ML VIAL IVPUSH (00:02)
[2024-10-16] MEDS: Ketorolac Tromethamine 15 MG/ML VIAL IVPUSH (00:04)
--- NOTE | 2024-10-16 00:06 | PC.NURSE ---
Pt reporting 4/10 pain and nausea Pt medicated per mar Plan of care ongoing.
[2024-10-16 00:54] VITALS: RESP 14
[2024-10-16 00:56] VITALS: BP 137/66; PULSE 66; RESP 20; TEMP 36.8; O2SAT 99
== END 2024-10-16 00:59 | disposition home or self-care (01) ==
PROVIDERS: Physician Assistant Medical; Emergency Provider Emergency Medicine; PCP Internal Medicine
DX: M94.0 Chondrocostal junction syndrome [Tietze] (principal); R11.0 Nausea; R10.9 Unspecified abdominal pain; R00.1 Bradycardia, unspecified
CPT/HCPCS: 36415; 71046; 80053; 83735; 84484; 85025; 93005; 96374; 96375; 99284; 99285; J1885; J2405

== ENCOUNTER → 2024-10-15 20:15 | Outpatient (BNV) | payer MEDICARE, SELFPAY | PROVIDERS: Emergency Provider Emergency Medicine; PCP Internal Medicine; Visit Provider Internal Medicine Cardiovascular Disease | DX: R07.89 Other chest pain (principal) | CPT/HCPCS: 93010 ==

== ENCOUNTER 2024-12-16 09:27 | Emergency (ER) | payer MEDICARE, SELFPAY ==
--- NOTE | ~2024-12-16 | XR_ITS ---
EXAMINATION: Right hip and AP pelvis. 3 views. CLINICAL INDICATION: Right hip pain. COMPARISON: None. FINDINGS: AP pelvis: There is normal symmetry of bilateral SI joints and hip joints with maintained joint space. No acute fracture, lytic or sclerotic process seen. No bony erosive changes. The soft tissues are normal. Right hip: AP and frog-leg views right hip reveal no visible acute fracture, dislocation. No bony erosive changes. The soft tissues are normal. XR/XR hip RT w PEL 1V IMPRESSION: Unremarkable right hip exam. Unremarkable pelvis exam. Electronically signed by: Matt Walters MD 12/16/2024 12:42 PM EST
[2024-12-16 09:51] VITALS: BP 137/83; PULSE 73; RESP 20; TEMP 35.4; O2SAT 99; BMI 36.6
[2024-12-16 10:28] LABS: Appearance Urine Clear; Color Urine Dark Yellow; Glucose Urine UA Negative (Negative); Leukocyte Esterase Urine Negative (Negative); Nitrite Urine Negative (Negative); PH 5.5 (5.0-9.0); Urine Blood Negative (Negative); Urine Ketones Negative (Negative); Urine Protein Negative (Neg-Trace)
--- NOTE | 2024-12-16 11:20 | ED_ITS ---
HPI - Extremity Problem General Chief complaint: Back Pain/Injury Stated complaint: R leg pain no injury Time Seen by Provider: 12/16/24 12:55 Source: patient Mode of arrival: ambulatory Limitations: no limitations History of Present Illness ED Provider: Dr. Jc Humphrey HPI Narrative: 64-year-old female with a history of coronary artery disease, fibromyalgia, hypertension, sleep apnea, IBS who presents emergency department for evaluation of right buttocks, groin and thigh pain which started yesterday after she was shoveling snow. Patient shoveling snow for proximally 15-20 minutes but did not have any injury. She states that later in the evening at around 19:30 hours she developed pain in her right buttocks, right groin and anterior thigh. She states the pain is greater than 10/10 and worse with movement. She states she was had sciatica in the past but this is different than her sciatica. She denied any numbness or weakness of her extremities. She denied loss of bowel or bladder control. She denied fever or chills. Patient states she took Tylenol without any relief. She states in the past when she was had back pain she was received an injection in the emergency department which significantly reduced her pain. In reviewing her ER visit she was received Toradol IV. Related Data Home Medications ?Medication ?Instructions ?Recorded ?Confirmed atorvastatin 10 mg tablet 10 mg PO DAILY 07/24/23 12/25/23 spironolactone 25 mg tablet 25 mg PO DAILY 07/24/23 12/25/23 atenolol 100 mg-chlorthalidone 25 1 tab PO DAILY 12/25/23 12/25/23 mg tablet Previous Rx's ?Medication ?Instructions ?Recorded ketorolac 10 mg tablet 10 mg PO Q6H PRN pain #20 tabs 10/16/24 ondansetron 4 mg disintegrating 4 mg PO Q8H PRN nausea and 10/16/24 tablet vomiting #10 tabs cyclobenzaprine 10 mg tablet 10 mg PO TID PRN muscle pain or 12/16/24 spasm #20 tabs Allergies Allergy/AdvReac Type Severity Reaction Status Date / Time butalbital [From FIORINAL] Allergy Unknown HIVES Verified 12/16/24 09:53 doxycycline [DOXYCYCLINE] Allergy Unknown HIVES Verified 12/16/24 09:53 lorazepam [From ATIVAN] Allergy Unknown HIVES Verified 12/16/24 09:53 morphine [MORPHINE] Allergy Unknown HIVES Verified 12/16/24 09:53 Penicillins Allergy Gastrointestinal Verified 12/16/24 09:55 Upset Doxycycline Calcium Allergy Unknown Hives Uncoded 10/15/24 20:14 Review of Systems Review of Systems: Yes all other systems are reviewed and are negative [facility] Past Medical History Medical History (Updated 12/16/24 @ 13:19 by Jc Humphrey MD) Coronary artery calcification seen on CT scan Fibromyalgia HTN (hypertension) Sleep apnea IBS (irritable bowel syndrome) Surgical History Hx of hand surgery Hx of hysterectomy Family History Family History Mother Afib Father S/P quintuple vessel bypass Brother Afib Social History Social History Alcohol intake: never Patient Tobacco Use Status: Never used Tobacco Substance Use Type: Marijuana Physical Exam Vital Signs: Vital Signs: Last Vital Signs Temp 95.7 F L 12/16/24 09:51 Pulse 73 12/16/24 09:51 Resp 20 12/16/24 09:51 BP 137/83 12/16/24 09:51 Pulse Ox 99 12/16/24 09:51 O2 Del Method Room Air 12/16/24 09:51 BMI result Body Mass Index 36.6 Vital signs revealed an elevated blood pressure of 137/83 otherwise unremarkable Exam: General: Awake, alert in no distress Head: Normocephalic, atraumatic EENT: PERRL, Lids normal, sclera normal, conjunctiva normal, nose normal , ears normal, throat without erythema or exudates Neck: Supple, no adenopathy Lung: breath sounds symmetric, no wheezing, rales or rhonchi Chest: symmetric movement, nontender Heart: regular rate and rhythm, normal S1, S2 no murmurs or rubs Abdomen: soft, non-tender, nondistended, normal bowel sounds Back: Patient has no vertebral tenderness or tenderness palpation of the paraspinal muscles. She does have tenderness palpation of her right groin and right SI joint. She was able to stand and walk without any difficulty. Extremities: no deformities, moves all extremities symmetrically Neuro: Awake, alert, oriented, normal speech, cranial nerves intact, moves all extremities symmetrically Psych: Pleasant, cooperative Course Course Course Narrative: This is a Rapid Medical Examination (RME) performed by Brandi Farfan PA-C in triage. Full HPI, ROS, assessment and treatment plan per primary provider in the Main ED. 64 yo female presenting with nontraumatic right buttock, right hip pain radiating down the anterior thigh. No back pain. Steady gait. Plan: XR hip, UA done Medications Administered Discontinued Medications Generic Name Dose Route Start Last Admin Trade Name Freq PRN Reason Stop Dose Admin Acetaminophen 975 mg 12/16/24 12:27 12/16/24 12:28 Acetaminophen 325 Mg Tablet PO 12/16/24 12:28 975 mg ONCE ONE Administration Medical Decision Making Medical Decision Making [facility] Narrative: 64-year-old female with a history of coronary artery disease, fibromyalgia, hypertension, sleep apnea, IBS who presents emergency department for evaluation of right buttocks, groin and thigh pain which started yesterday after she was shoveling snow. Did not recount any injury while shoveling but several hours later she developed pain in her right groin, right buttocks and anterior thigh. She denied numbness, weakness, loss of bowel or bladder control, fever, chills or fatigue. Patient was pain is different than her sciatic pain. She states the pain is greater than 10/10 and not relieved by Tylenol. Differential diagnosis: ?Includes but is not limited to lumbar disc protrusion, lumbar radiculopathy, musculoskeletal strain/sprain Course: 13:26 Patient's presentation physical findings are consistent with lumbar radiculopathy of L1-L2. I did discuss this with the patient. The patient was given Toradol 60 mg IM. The patient was advised to take ibuprofen 400 mg 3 times a day and extra-strength Tylenol 1000 mg 3 times a day. She was also prescribed Flexeril 10 mg 3 times a day as needed for spasm. She was given printed and verbal instructions and discharged home Admission/Observation Consideration of admission/observation: Escalation of care including admission/observation considered (No) Lab Data [facility] Lab Attestation statement: I reviewed the patient's lab results. Labs: Lab Results 12/16/24 Range/Units 10:19 Urine Color Dark Yellow Urine Appearance Clear Urine pH 5.5 (5.0-9.0) Ur Specific [place] 1.020 (1.005-1.025) Urine Protein Negative (Neg-Trace) mg/dL Urine Glucose (UA) Negative (Negative) mg/dL Urine Ketones Negative (Negative) mg/dL Urine Blood Negative (Negative) Urine Nitrite Negative (Negative) Ur Leukocyte Esterase Negative (Negative) Prescription Management I considered prescription management with: Other (Anti spasmodic: Flexeril) Chronic Conditions Patient?s care impacted by: Other (Fibromyalgia) Discharge Plan Discharge Clinical Impression: Right lumbar radiculopathy Patient Disposition: Home, Self-Care Instructions: Lumbar Radiculopathy (ED) Additional Instructions: Your symptoms are consistent with inflammation of the nerves coming out of your lower back (lumbar radiculopathy) most likely caused by you bending and shoveling yesterday. You most likely have inflammation of L1 and L2 based on the location of your pain (right hip and groin and top of the thigh). This is treated with anti-inflammatory medications and muscle relaxants. You were given an injection of an anti inflammatory medication called Toradol (ketorolac) 60 mg IM. Take ibuprofen 200 mg pills, 2 pills every 6 hours as needed for pain or fever. Take Tylenol (acetaminophen) 500 mg pills, 2 pills every 6 hours as needed for pain or fever. Take Flexeril (cyclobenzaprine) 10 mg pills, 1 pill every 6-8 hours as needed for pain or spasm. ?This medication will make you sleepy. ?Do not drive or work while taking this medication. Follow-up with your doctor in 2 days. Please return to the emergency department if your symptoms get worse or if you develop any symptoms that are concerning to you. Prescriptions: New cyclobenzaprine 10 mg tablet 10 mg PO TID PRN (Reason: muscle pain or spasm) Qty: 20 0RF No Action ketorolac 10 mg tablet 10 mg PO Q6H PRN (Reason: pain) Qty: 20 0RF Rx Instructions: maximum total duration of 5 days from all oral, intranasal, or parenteral formulations. Patient received an IV dose of Toradol here in the emergency department. ondansetron 4 mg tablet,disintegrating 4 mg PO Q8H PRN (Reason: nausea and vomiting) Qty: 10 0RF atorvastatin 10 mg tablet 10 mg PO DAILY spironolactone 25 mg tablet 25 mg PO DAILY atenolol-chlorthalidone 100-25 mg tablet 1 tab PO DAILY Print Language: Palauan
[2024-12-16] MEDS: Acetaminophen 325 MG TABLET 975 MG PO (12:28)
--- NOTE | 2024-12-16 12:29 | PC.NURSE ---
patient given tylenol for 10/10 pain, patient in triage
[2024-12-16] MEDS: Ketorolac Tromethamine 60 MG/2 ML VIAL IM (13:47)
[2024-12-16 13:54] VITALS: BP 141/78; PULSE 70; RESP 18; TEMP 36.2; O2SAT 97
--- NOTE | 2024-12-16 13:55 | PC.NURSE ---
pt was seen and medicated as charted. discharged from ED chair.
--- OUTSIDE RECORDS SUMMARY | 2024-12-16 14:42 | XMS_ITS | Continuity of Care Document ---
Author Organization [facility] Address [address] [place] [id number] Care Team Providers Care Education Intern Name Role Phone Lorie YOUNGER, Jude Garcias Primary Care Physician [phone] Encounter [facility] Date(s): 11/11/24 - 12/11/24 [facility] [address] [place] [id number] Attending Physician: Supa Jay Admitting Physician: Supa Jay Referring Physician: Supa Jay Encounter Type: Triage Allergies, Adverse Reactions, Alerts Substance Criticality Severity Reaction Reaction Severity Status naproxen 1 rash Active doxycycline rash Active morphine rash Active shellfish throat closed Active Florinef Acetate rash Act arabella Ativan rash Active Onions throat closed Active 1hives Immunizations Given and Recorded Vaccine Date Status Refusal Reason influenza virus vaccine, inactivated 08/27/23 Give n influenza virus vaccine, inactivated 08/21/22 Jorden rded influenza virus vaccine, inactivated 09/29/21 Jorden rded influenza virus vaccine, inactivated 09/15/19 Give n influenza virus vaccine, inactivated 09/27/18 Give n influenza virus vaccine, inactivated 09/04/17 Give n influenza virus vaccine, inactivated 01/01/17 Jorden rded influenza virus vaccine, inactivated 12/19/16 Give n pneumococcal 20-valent conjugate vaccine 06/19/23 Given [id number] 12y+ bivalent booster vax 08/21/22 Recorded SARS-CoV-2 mRNA (vaokipz-bspv-ctgdq) vax 03/08/22 Recorded SARS-CoV-2 (COVID-19) mRNA BNT-162b2 vac 08/28/21 Recorded SARS-CoV-2 (COVID-19) mRNA BNT-162b2 vac 03/03/21 Recorded SARS-CoV-2 (COVID-19) mRNA BNT-162b2 vac 02/23/21 Recorded SARS-CoV-2 (COVID-19) mRNA BNT-162b2 vac 02/02/21 Recorded Influenza Virus Vaccine (oldterm) 09/08/20 Recorde d tetanus/diphtheria/pertussis, acel(Tdap) 05/12/19 Given tetanus/diphtheria/pertussis, acel(Tdap) 02/04/09 Recorded pneumococcal 23-valent vaccine 09/04/17 Given pneumococcal 13-valent vaccine 02/13/13 Recorded Medications atenolol-chlorthalidone 100 mg-25 mg oral tablet 1 tablet, By Mouth, Daily, # 90 tablet, 3 Refills, Maintenance, 09/22/24 10:24:00 AM EDT, [facility], 90, TAKE 1 TABLET BY MOUTH DAILY, 167.6, cm, 06/23/24 7:53:00 EDT, Height Start Date: 09/22/24 Status: Ordered Quantity: 90.0 Unit: tablet Repeat number: 1 atorvastatin 40 mg oral tablet 1 tablet = 40 mg, By Mouth, Daily, # 90 tablet, 3 Refills, Maintenance, 06/23/24 8:22:00 AM EDT, Tablet, [facility], Partial fill upon patient request if the prescription is for a schedule IIopioid drug., 167.6, cm, 06/23/24 7:53:00 EDT, Height, 105.3, kg, 09/06/22 10:33:00 EDT, Dry Weight Start Date: 06/23/24 Status: Ordered Quantity: 90.0 Unit: tablet Repeat number: 4 Auto CPAP Supplies Auto CPAP Supplies, See Instructions, # 3 each, Refills 3, Tot. Refills 3, Maintenance, DX: TEODORO (G47.33) Mask Hose Filters For nightly use SUSANNA: [employer], 02/29/24 10:11:00 AM EDT, Supply Start Date: 02/29/24 Status: Ordered Quantity: 3.0 Unit: each Repeat number: 4 AutoCPAP 14-19 with heated humidification from [employer] AutoCPAP 14-19 with heated humidification from [employer], See Instructions, # 1 each, Refills 0, Tot.Refills 0, Maintenance, use overnight and naps from [employer], 03/21/18 10:53:58 AM EDT, Compound Start Date: 03/21/18 Status: Ordered Quantity: 1.0 Unit: each Repeat number: 1 Azithromycin 5 Day Dose Pack 250 mg oral tablet 1 pack/packet, By Mouth, Once, # 6 tablet, 0 Refills, Soft Stop, 10/16/24 1:48:00 PM EST, Tablet, [id number], Partial fill upon patient request if the prescription is for a schedule II opioid drug., 167.6, cm, 10/12/24 8:25:00 EST, Height Start Date: 10/16/24 Status: Ordered Quantity: 6.0 Unit: tablet Repeat number: 1 cyclobenzaprine 10 mg oral tablet 10 mg, 1, tablet, By Mouth, Daily at bedtime, # 90 tablet, Refills 3, Tot. Refills 3, Maintenance, 06/22/23 2:52:00 PM EDT, Route to Pharmacy Electronically, [facility], Partialfill upon patient request if the prescription is for a schedule II opioid drug., 167.6, cm, 06/19/23 11:34:00 EDT, Height, 105.3, kg, 09/06/22 10:33:00 EDT, Dry Weight Start Date: 06/22/23 Status: Ordered Quantity: 90.0 Unit: tablet Repeat number: 4 Flax Seed Oil 0 Refills, Maintenance, 11/03/21 9:19:00 AM EST, Partial fill upon patient request if the prescription is for a schedule II opioid drug. Start Date: 11/03/21 Status: Ordered Repeat number: 1 Probiotic + Colostrum oral powder for reconstitution 1 pack/packet, By Mouth, Daily, 0 Refills, Maintenance, 02/25/20 8:37:00 AM EDT Start Date: 02/25/20 Status: Ordered Repeat number: 1 spironolactone 25 mg oral tablet 1, tablet, By Mouth, Daily, # 90 tablet, Refills 3, Maintenance, 09/22/24 10:24:00 AM EDT, Route toPharmacy Electronically, [facility], 167.6, cm, 06/23/24 7:53:00 EDT, Height Start Date: 09/22/24 Status: Ordered Quantity: 90.0 Unit: tablet Repeat number: 1 Problem List Condition Confirmation Course Effective Dates Status Health Status Informant Allergic rhinitis Confirmed Active Marijuana use Confirmed Active Abnormal CT scan of lung Confirmed Active Costochondritis Confirmed Active COVID-19 virus infection Confirmed Active Deviated septum Confirmed Active Glucose intolerance Confirmed Active Fibromyalgia Confirmed Active Gastritis 1 Confirmed Active History of multiple miscarriages Confirmed Active S/P cataract surgery 2 Confirmed Active H/O colonoscopy 3 Confirmed Active History of cervical cancer 4 Confirmed Active Hypercholesterolemia Confirmed Active Hypertension Confirmed Active Internal hemorrhoids 5 Confirmed Active Irritable bowel syndrome 6 Confirmed Active Low back pain Confirmed Active TEODORO (obstructive sleep apnea) Confirmed Active Obstructive sleep apnea Confirmed Active Leg pain, bilateral Confirmed Active Pectus excavatum Confirmed Active Emphysema of lung 7 Confirmed Active Keratosis seborrheica 8 Confirmed Active Severe obesity (BMI 35.0-39.9) with comorbidity Confirmed Active Ovarian torsion, acquired 9 Confirmed Active Vertigo Confirmed Active 1By EGD 2016. 2Performed bilaterally [address] Green 3Colonoscopy 2014 positive polyps, repeat 2017 4Status post hysterectomy 1988. 5colo 2017 [address] Arora 7CT scan 2016 8Followed by dermatology, Dr. Mcgregor 9Followed by Dr. Luna Social History Social History Type Response Smoking Status Former smoker; Other : Quit smoking 2014. Approximately 27-96-noio-year history of smoking; entered on: 02/16/17 Sex Sex Representation Female (finding) Patient Care team information Care Team Personnel Name: Jude Melo MD Position: [facility] Physician - Primary Care Member Role: PCP Address: [address] [place] [phone]- Telecom: Care Team Related Persons Name: TERRY BAUTISTA Insurance Providers [facility] Plan Information #: 1 Payer: NA Member Number: NA Policy Number: NA Group Number: NA
--- OUTSIDE RECORDS SUMMARY | 2024-12-16 14:42 | XMS_ITS | Clinical Summary ---
Author Organization [facility] Address [id number] [place] [id number] Care Team Providers Care Railway Track Worker Name Role Phone Jude Melo MD Primary Care Provider [phone] Surgical History Surgery Date Site/Laterality Comments HYSTERECTOMY PROCEDURE: HISTORICAL HYSTERECTOMY; COMMENT: 1988 HAND SURGERY PROCEDURE: HISTORICAL HAND SURGERY; COMMENT: right, 2003 OTHER SURGICAL HISTORY PROCEDURE: MO DILATION & CURETTAGE DX&/THER NONOBSTETRIC TUBAL LIGATION PROCEDURE: HISTORICAL TUBAL LIGATION; COMMENT: 1987 OTHER SURGICAL HISTORY PROCEDURE: LAPAROSCOPY PROCEDURE NEC Medical History Medical History Date Comments HTN (hypertension) DX:HTN (hyper tension) IBS (irritable bowel syndrome) D X:IBS (irritable bowel syndrome) Cervical cancer (CMS/HCC) DX:Cer vical cancer (HCC); COMMENT: 1988 Fibromyalgia DX:Fibromyalgia Family History Medical History Relation Name Comments Coronary artery disease Father Lung cancer Mother Relation Name Status Comments Father Mother Social History Tobacco Use Types Packs/Day Years Used Date Smoking Tobacco: Former Cigarettes Q uit: 01/17/2015 Smokeless Tobacco: Never Alcohol Use Standard Drinks/Week Comments No 0 (1 standard drink = 0.6 oz pur e alcohol) Sex and Gender Information Value Date Recorded Sex Assigned at Not on file Gender Identity Not on file Sexual Orientation Not on file Obstetrics History Plan of Treatment Health Maintenance Due Date Last Done Comments Breast Cancer Screening 1958 COVID-19 Vaccine (#1) 1963 Pneumococcal Vaccine: 65+ Ye ars (1 of 2 - PCV) 1964 DTaP,Tdap,and Td Vaccines (1 - Tdap) 1977 Zoster Vaccines (1 of 2) 1977 Cholesterol Screening (Lipid Panel) 12/25/2023 Colorectal Cancer Screening: Colonoscopy 12/25/2023 Depression Screening 12/25/2023 Falls Risk Assessment 12/25/2023 Hepatitis C Screening 12/25/2023 Hypertension/CHF/CAD Annual BMP Blood Test 12/25/2023 Osteoporosis Screening (Bone Density Screening) 12/25/2023 Social Influencers of Health Screening 12/25/2023 Influenza Vaccine (#1) 2024 RSV Immunization Patients 60 + Years Old (1 - 1-dose 75+ series) 2033 HIB Vaccines Aged Out No longer eligi ble based on patient's age to complete this topic HPV Vaccines Aged Out No longer eligi ble based on patient's age to complete this topic Hepatitis A Vaccines Aged Out No long er eligible based on patient's age to complete this topic Hepatitis B Vaccines Aged Out No long er eligible based on patient's age to complete this topic IPV Vaccines Aged Out No longer eligi ble based on patient's age to complete this topic MMR Vaccines Aged Out No longer eligi ble based on patient's age to complete this topic Meningococcal ACWY Vaccine Aged Out N o longer eligible based on patient's age to complete this topic RSV Immunization Patients Un cyn 20 months Aged Out No longer eligible b ased on patient's age to complete this topic Varicella Vaccines Aged Out No longer eligible based on patient's age to complete this topic Care Teams Railway Track Worker Relationship Specialty Start Date End Date Jude Melo MD [address] [place] [id number] PCP - General Internal Medicine 01/16/19
--- OUTSIDE RECORDS SUMMARY | 2024-12-16 14:42 | XMS_ITS | Continuity of Care Document ---
Author Organization [facility] Address [address] [place] [phone]- Care Team Providers Care Chiller Hand Name Role Phone Lorie YOUNGER, Jude Garcias Primary Care Physician Encounter [facility] Date(s): 10/16/24 - 11/15/24 [facility] [address] [place] [address]- Encounter Type: Triage Allergies, Adverse Reactions, Alerts Substance Criticality Severity Reaction Reaction Severity Status naproxen 1 rash Active shellfish throat closed Active doxycycline rash Active morphine rash Active Florinef Acetate rash Act arabella Ativan [...] n pneumococcal 20-valent conjugate vaccine 06/19/23 Given [id number] 12y+ bivalent booster vax 08/21/22 Recorded SARS-CoV-2 mRNA (ppaxndy-bryk-bdprs) vax 03/08/22 Recorded SARS-CoV-2 (COVID-19) mRNA BNT-162b2 [...] Soft Stop, 10/16/24 1:48:00 PM EST, Tablet, [id number], Partial fill upon patient request if the [...] 2:52:00 PM EDT, [facility], Partialfill upon patient request if the [...] smoker; Other : Quit smoking 2014. Approximately 72-40-enqb-year history of smoking; entered on: 02/16/17 Sex Sex Representation Female (finding) Patient Care team information Care Team Personnel Name: Jude Melo MD Position: [facility] Physician - Primary Care Member Role: PCP Address: [address] [place] [address] [place] [address]- [place] Telecom: Care Team Related Persons Name: TERRY BAUTISTA Insurance Providers Guarantor name: JACK BAUTISTA [facility] Plan Information #: 1 Payer: [facility] MEDIC[facility] ADV PPO Member Number: NA Policy Number: NA Group Number: NA
--- OUTSIDE RECORDS SUMMARY | 2024-12-16 14:42 | XMS_ITS | Continuity of Care Document ---
Author Organization [facility] Address [address] [place] [id number]- Care Team Providers Care Chair Springer Name Role Phone Lorie YOUNGER, Jude Garcias [id number] [address] [place] [id number] Attending Physician: Rogers YOUNGER, Juan Ellis Referring Physician: Andrews YOUNGER, [place] Encounter Type: Pre Office Visit Allergies, Adverse Reactions, Alerts Substance Criticality Severity [...] n pneumococcal 20-valent conjugate vaccine 06/19/23 Given [id number] 12y+ bivalent booster vax 08/21/22 Recorded SARS-CoV-2 mRNA (ehaidxj-ksub-zfokw) vax 03/08/22 Recorded SARS-CoV-2 (COVID-19) mRNA BNT-162b2 [...] J[employer] AutoCPAP 14-19 with heated humidification from [employer], See Instructions, # 1 each, Refills 0, Tot.Refills 0, Maintenance, use overnight and naps from [employer], 03/21/18 10:53:58 AM EDT, Compound Start Date: 03/21/18 Status: Ordered Quantity: 1.0 Unit: each Repeat number: 1 Azithromycin 5 Day Dose Pack 250 mg oral tablet 1 pack/packet, By Mouth, Once, # 6 tablet, 0 Refills, Soft Stop, 10/16/24 1:48:00 PM EST, Tablet, [facility][id number], Partial fill upon patient request if the [...] 2:52:00 PM EDT, Route to Pharmacy Electronically, [facility], Partialfill upon patient request if the [...] smoker; Other : Quit smoking 2014. Approximately 80-71-eifw-year history of smoking; entered on: 02/16/17 Sex Sex Representation Female (finding) Patient Care team information Care Team Personnel Name: Jude Melo MD Position: [facility] Physician - Primary Care Member Role: PCP Address: [address] [place] [address] [place] [address]- [place] Telecom: Care Team Related Persons Name: TERRY BAUTISTA Insurance Providers Guarantor name: JACK BAUTISTA Health Plan Information #: 1 Payer: [employer] MEDICARE ADV PPO Member Number: [id number] Policy Number: NA Group Number: NA Health Plan Information #: 2 Payer: NA Member Number: NA Policy Number: NA Group Number: NA
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
== END 2024-12-16 13:55 | disposition home or self-care (01) ==
PROVIDERS: Emergency Provider Emergency Medicine Emergency Medical Services; PCP Internal Medicine
DX: M54.16 Radiculopathy, lumbar region (principal); I25.10 Atherosclerotic heart disease of native coronary artery without angina pectoris; R10.2 Pelvic and perineal pain; Z79.899 Other long term (current) drug therapy
CPT/HCPCS: 73502; 81003; 96372; 99283; 99284; J1885

== ENCOUNTER → 2024-12-16 11:19 | Outpatient (BNV) | payer MEDICARE, SELFPAY | PROVIDERS: PCP Internal Medicine; Visit Provider Radiology Diagnostic Radiology | DX: M25.551 Pain in right hip (principal) | CPT/HCPCS: 73502 ==

== ENCOUNTER 2024-12-30 14:17 | Outpatient (AMB) | payer BC, SELFPAY ==
--- NOTE | 2024-12-30 14:19 | A.OFFVIS_ITS ---
Vital Signs 12/30/24 14:20 Height 5 ft 5 in Weight 218 lb 4.122 oz BMI 36.3 BP 110/58 L Blood Pressure Location Lt brachial Position Sitting Pulse 68 Pulse Source Pulse Oximeter Intake Visit Reasons: r/s 10/14/24 6 mos followup Allergies butalbital [From FIORINAL] Allergy (Unknown, Verified 12/16/24 09:53) HIVES doxycycline [DOXYCYCLINE] Allergy (Unknown, Verified 12/16/24 09:53) HIVES lorazepam [From ATIVAN] Allergy (Unknown, Verified 12/16/24 09:53) HIVES morphine [MORPHINE] Allergy (Unknown, Verified 12/16/24 09:53) HIVES Penicillins Allergy (Verified 12/16/24 09:55) Gastrointestinal Upset Doxycycline Calcium Allergy (Unknown, Uncoded 10/15/24 20:14) Hives Medication List - Last Reconciled 12/30/24 by Hamlet Alexander MD atenolol-chlorthalidone 100-25 mg 1 tab PO DAILY atorvastatin 40 mg PO DAILY spironolactone 25 mg PO DAILY HPI Comments Details: Stephanie returns for follow-up. She was seen in the past regarding chest pains and then underwent a coronary CTA. That shows nonobstructive CAD. Overall, she states she feels fine for the most part. Random episodes of chest jabbing that last for a 2nd or so, most likely noncardiac. Nothing exertional. Otherwise, she feels fine. [facility] Medical History (Updated 12/30/24 @ 14:41 by Hamlet Alexander MD) Coronary artery calcification seen on CT scan Fibromyalgia HTN (hypertension) Sleep apnea IBS (irritable bowel syndrome) Surgical History Hx of hand surgery Hx of hysterectomy Family History Mother Afib Father S/P quintuple vessel bypass Brother Afib Social History Alcohol intake: never Patient Tobacco Use Status: Never used Tobacco Substance Use Type: Marijuana Review of Systems Const Denies weakness ENT Denies dizziness Card Denies chest pain, Denies chest pain with activity, Denies syncope, Denies rapid heart rate, Denies pedal edema, Denies edema, Denies leg edema, Denies lightheadedness, Denies palpitations, Denies dyspnea, Denies dyspnea on exertion and Denies orthopnea Resp Denies cough, Denies dyspnea and Denies dyspnea on exertion GI Denies hematochezia and Denies change in stool character Musc Denies abnormal gait, Denies muscle cramps, Denies muscle weakness, Denies numbness, Denies radiating pain into limb and Denies tingling Neuro Denies abnormal gait, Denies dizziness, Denies syncope, Denies numbness, Denies tingling and Denies weakness Endo Denies palpitations Physical Exam Vital Signs: Last Vital Signs Pulse 68 12/30/24 14:20 BP 110/58 L 12/30/24 14:20 BMI result Body Mass Index 36.3 Const General: comfortable and no acute distress Orientation/consciousness: patient oriented x3 HEENT Other: Unremarkable Head: Yes normal to inspection Neck Neck: Yes normal visual inspection Chest Chest palpation & inspection: normal inspection of the chest Resp Auscultation: clear to auscultation bilaterally Cardio Palpation: normal PMI Heart sounds: S1 normal heart sound present, S2 normal heart sound present, no gallops, no murmurs and no rubs GI Palpation (GI): Soft to palpation Back/Spine/Pelvis Other: unremarkable Skin General skin exam: no rashes or lesions noted Neuro General: patient oriented x3 Extrem General: Yes normal to inspection Psych Mental Status: mental status grossly normal Assessment & Plan Assessment & Plan (1) Atherosclerotic cardiovascular disease: Code(s): I25.10 - Atherosclerotic heart disease of [place] coronary artery without angina pectoris Category: Medical Plan: Coronary CTA shows LAD calcifications, < 50% stenosis. Circumflex calcifications with less than 25% stenosis. Echocardiogram with LVEF of 60-65%. No significant valve findings. She can take low-dose aspirin if no contraindications. Statins. (2) HTN (hypertension): Code(s): I10 - Essential (primary) hypertension Category: Medical Plan: Well controlled. (3) Hyperlipidemia, unspecified: Code(s): E78.5 - Hyperlipidemia, unspecified Category: Medical Plan: She is on statins. Last LDL cholesterol 102 mg/dL. However, it seems PCP at increase the dose. No further changes made today. Target LDL should be around 60 mg/dL or lower. Coding Level of Care Code Est Pt Level 4 (10697) Diagnoses Atherosclerotic cardiovascular disease I25.10 HTN (hypertension) I10 Hyperlipidemia, unspecified E78.5
[2024-12-30 14:20] VITALS: BP 110/58; PULSE 68; BMI 36.3
--- OUTSIDE RECORDS SUMMARY | 2024-12-30 14:23 | XMS_ITS | Data Portability ---
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 Role Phone BISI JJ Primary Care Provider CHYNA BILLS Referring Provider Assessment Encounter Date Assessment Date Assessment LastModified [...] Address Organization Details Recorded Time Stomatiti s 66332982 Active 2020 Oral thrush; Note: Date Diagnosed : 07/19/2021 12:36 PM (B37.0) Not Available [facility] 4 02:57:23 Candidias is of mouth 02006948 Active 2020 Oral thrush; Note: Date Diagnosed : 07/19/2021 12:36 PM (B37.0) Not Available [facility] 4 02:57:23 Epidermoi d cyst 837498838 Active 2019 Epidermal cyst; Note: Date Diagnosed : 04/08/2020 2:09 PM (L72.0) Not Available [facility] 4 02:57:21 Otalgia of right ear 4442224259 Active 2014 Otalgia, right ear; Note: Date Diagnosed : 5 10:09 AM (H92.01) Not Available [facility] 4 02:57:23 Temporoma ndibular joint disorder 36226763 Active 2014 Temporoma ndibular joint disorder, unspecifi ed; Note: Date Diagnosed : 5 10:09 AM (M26.60) Not Available [facility] 4 02:57:22 Mass of neck 981576995 Active 2014 Localized swelling, mass and lump, neck; Note: Date Diagnosed : 5 10:09 AM (R22.1) Not Available [facility] 4 02:57:21 Neck swelling 615342101 Active 2014 Localized swelling, mass and lump, neck; Note: Date Diagnosed : 5 10:09 AM (R22.1) Not Available [facility] 4 02:57:21 Allergic rhinitis 95295087 Active 2020 Other allergic rhinitis; Note: Date Diagnosed : 03/03/2021 12:36 PM (J30.89) Not Available [facility] 4 02:57:22 Deviated nasal septum 880611714 Active 2023 KELLEN CHANDRA MD [address] [place] [address],[place] [address], [place], [phone] , [place] - [facility] 4 10:59:43 Hypertrop hy of nasal turbinate s 58574823 Active 2023 KELLEN CHANDRA MD [address] [place] [address],[place] [address], [place], [address] , [facility] 4 11:00:10 Obstructi ve sleep apnea syndrome 01553507 Active 2023 KELLEN CHANDRA MD [address] [place] [address],[place] [address], [place], [address] , [facility] 4 11:00:46 Problem Notes None recorded. Procedures Surgical History Date Name Laterality Status Provider Name and Address Organization Details Recorded Time 08/25/2024 NasalEndos copy_DP completed KELLEN CHANDRA MD [address] [place] [address],[place] [address], [place], [address], [facility] 08/25/2024 10:58:36 Imaging Results None recorded. Procedure Notes None recorded. Medical Equipment None Reported. Allergies Allergen ID Allergen Name Allergen Category Reaction Reaction Severity Criticality Documentation Date Start Date Code Code System Note Provider Name and Address Organization Details Recorded Time 156810 lorazepam medicatio n other Not available Not available 04/08/2024 6470 RxNorm React ion: unkno wn, unspe cifie d;; Not Available [facility] 4 01:11:29 802931 Fiorinal medicatio n other Not available Not available 04/08/2024 54459 RxNorm React ion: unkno wn, unspe cifie d;; Not Available [facility] 4 01:11:30 338237 doxycycli ne hyclate medicatio n other Not available Not available 04/08/2024 71713 RxNorm React ion: unkno wn, unspe cifie d;; Karon hinojosa [facility] 4 10:47:52 754043 morphine medicatio n other Not available Not available 04/08/2024 7052 RxNorm React ion: unkno wn, unspe cifie d;; Not Available [facility] 4 01:11:33 595247 naproxen medicatio n other Not available Not available 04/08/2024 7258 RxNorm React ion: unkno wn, unspe cifie d;; Not Available [facility] 4 01:11:35 Medications Name Sig Start Date Stop Date Status Note LastModified by Organization Details LastModified Time atorvasta tin 40 mg tablet active Not Available Not Available Not Available nystatin 100,000 unit/mL oral suspensio n by mouth 08/25 completed Medicati on ID: [id number] P rescribe d By Name: EVE Trujillo [...] mg tablet 04/08 completed Medicati on ID: [id number] Du ration Value: 30 Reason: () Brand Name: atorvast atin Sen d Method: E-Prescr ibed Sub s Allowed: subs OK Medic ationGen ericName : atorvast atin Not Available Not Available Not Available atorvasta tin 10 mg tablet 08/25 completed Not Available Not Available Not Available penicilli n V potassium 500 mg tablet 04/08 completed Medicati on ID: [id number] Du ration Value: 10 Reason: () Brand Name: penicill in V potassiu m Send Method: E-Prescr ibed Sub s Allowed: subs OK Medic ationGen ericName : penicill in V potassiu m Not Available Not Available Not Available omeprazol e 40 mg capsule,d elayed release 04/08 completed Medicati on ID: [id number] Du ration Value: 15 Reason: () Brand [...] mg tablet 04/08 completed Medicati on ID: [id number] Re ason: () Brand Name: zinc Sen d Method: E-Prescr ibed Sub s Allowed: subs OK Medic ationGen ericName : zinc Not Available Not Available Not Available magnesium 250 mg tablet 04/08 completed Medicati on ID: [id number] Re ason: () Brand Name: elieceru m [...] mg tablet 08/25 completed Medicati on ID: [id number] D uration Value: 90 Brand Name: losartan Send Method: E-Prescr ibed Sub s Allowed: subs OK Speci al Instruct ion: TK 1 T PO D Medica tionGene ricName: losartan Not Available Not Available Not Available dicyclomi ne 10 mg capsule 08/25 completed Medicati on ID: [id number] B rand Name: dicyclom ine Send Method: [...] mg) tablet 04/08 completed Medicati on ID: [id number] Re ason: () Brand Name: Calcium 500 Send Method: E-Prescr ibed Sub s Allowed: subs OK Medic ationGen ericName : Calcium 500 Not Available Not Available Not Available mag oxide-D3- turmeric rt xt 04/08 completed Medicati on ID: [id number] Re ason: () Brand Name: mag oxide-d3 -turmeri c rt xt Send Method: E-Prescr ibed Sub s Allowed: subs OK Medic ationGen ericName : mag oxide-d3 -turmeri c rt xt Not Available Not Available Not Available Vitals Date Recorded Body height Body mass index (BMI) Body weight Provider Name and Address Organization Details Last Updated DateTime 08/25/2024 166.37 cm 36.1 kg/m2 55601.32 g Karon Toribio [place] - [facility] 08/25/2024 10:47:42 Social History None recorded. Functional Status None recorded. Mental Status None recorded. Family History Nothing Reported. Medical History No medical history recorded. Gynecological HistoryNo gynecological history recorded. Obstetrics History GPAL:G 0 P 0 0 0 0 Past Encounters Encounter ID Performer Location Encounter Start Date Encounter Closed Date Diagnosis/Indication Diagnosis SNOMED-CT Code Diagnosis ICD10 Code Diagnosis Note [id number] KELLEN CHANDRA MD [facility] [address] [place] [address] 08/25/2024 09:55:26 08/25/2024 11:01:16 Deviated nasal septum 800486968 J34.2 Hypertroph y of nasal turbinates 99794367 J34.3 Obstructiv e sleep apnea syndrome 81840644 G47.33 Health Concerns Section Related Observation LastModified by Organization Detai ls LastModified Time None Recorded Concern Status LastModified by Organization Details LastModified Time None Recorded Advance Directives Directive None Recorded Payers Encounter Date Sequence Insurance Name Policy Number Policy Lira Covered Member ID Lira Member ID Guarantor Name 08/25/2024 1 [facility] [id number] 1 Stephanie Branham [id number] Stephanie Branham Notes Date Note Type Note Provider Name and Address Organization Details Recorded Time 08/25/2024 text/html Patient of Dr Farnsworthnasal congestiondeviated septumtopical nasal steroid with minimal relief partial tear of right achilles last month TEODORO - on CPAP every nightallergic rhinitis PV 07/19/21 Azucena Botello - allergic rhinitis, TMJ, thrush - tx with nystatin KELLEN CHANDRA MD [address] [place] [address], [phone], [place] - [facility] 08/25/2024 11:02:27 OBGyn Episode No OBEpisode recorded.
--- OUTSIDE RECORDS SUMMARY | 2024-12-30 14:23 | XMS_ITS | Clinical Summary ---
Author Organization [facility] Address [address] [place] [address] Care Team Providers Care Healthcare Project Manager Name Role Phone Jude Melo MD Primary Care Provider [phone] Surgical History Surgery Date Site/Laterality Comments HYSTERECTOMY PROCEDURE: HISTORICAL HYSTERECTOMY; COMMENT: 1988 HAND SURGERY PROCEDURE: HISTORICAL HAND SURGERY; COMMENT: right, 2003 OTHER SURGICAL HISTORY PROCEDURE: ID DILATION & CURETTAGE DX&/THER NONOBSTETRIC TUBAL LIGATION [...] age to complete this topic Care Teams Healthcare Project Manager Relationship Specialty Start Date End Date Jude Melo MD [address] [place] [phone] PCP - General Internal Medicine 01/16/19
== END 2024-12-30 14:36 | disposition home or self-care (01) ==
PROVIDERS: PCP Internal Medicine; Visit Provider Internal Medicine
DX: I25.10 Atherosclerotic heart disease of native coronary artery without angina pectoris (principal); I10 Essential (primary) hypertension; E78.5 Hyperlipidemia, unspecified
CPT/HCPCS: 99214

== ENCOUNTER 2025-04-06 16:59 | Emergency (ER) | payer MEDICARE, SELFPAY ==
[2025-04-06 17:25] VITALS: BP 110/67; PULSE 69; RESP 18; TEMP 36.8; O2SAT 96; BMI 35.4
--- NOTE | 2025-04-06 17:29 | ED.GENADULT ---
HPI - General Adult General Chief complaint: Wound/Laceration Stated complaint: Lac to L thumb Time Seen by Provider: 04/06/25 18:10 Source: patient Limitations: no limitations History of Present Illness ED Provider: Tammy Garnica PA-C HPI narrative: 64-year-old female with a history of hypertension, hyperlipidemia, known coronary artery disease, who was not anticoagulated, presents with laceration. Patient states she was slicing vegetables, she subsequently lacerated her left thumb. Tetanus up-to-date. Related Data Home Medications ?Medication ?Instructions ?Recorded ?Confirmed spironolactone 25 mg tablet 25 mg PO DAILY 07/24/23 12/30/24 atenolol 100 mg-chlorthalidone 25 1 tab PO DAILY 12/25/23 12/30/24 mg tablet atorvastatin 10 mg tablet 40 mg PO DAILY 12/30/24 12/30/24 Allergies Allergy/AdvReac Type Severity Reaction Status Date / Time butalbital [From FIORINAL] Allergy Unknown HIVES Verified 04/06/25 17:28 doxycycline [DOXYCYCLINE] Allergy Unknown HIVES Verified 04/06/25 17:28 lorazepam [From ATIVAN] Allergy Unknown HIVES Verified 04/06/25 17:28 morphine [MORPHINE] Allergy Unknown HIVES Verified 04/06/25 17:28 Penicillins Allergy Gastrointestinal Verified 04/06/25 17:28 Upset Doxycycline Calcium Allergy Unknown Hives Uncoded 10/15/24 20:14 Review of Systems Review of Systems: Yes all other systems are reviewed and are negative Constitutional: Constitutional: Denies fatigue and Denies fever(s) Musculoskeletal: Musculoskeletal: Denies arthralgias and Denies joint swelling Integumentary/Breasts: Skin/Breast: Reports wounds Endocrine: Endocrine: Denies fatigue [facility] Past Medical History Attestation statement: The following information was validated with the patient. Medical History (Updated 04/06/25 @ 18:48 by MARGARETTE Hope) Coronary artery calcification seen on CT scan Fibromyalgia HTN (hypertension) Sleep apnea IBS (irritable bowel syndrome) Surgical History Hx of hand surgery Hx of hysterectomy Family History Family History Mother Afib Father S/P quintuple vessel bypass Brother Afib Social History Social History Alcohol intake: never Patient Tobacco Use Status: Never used Tobacco Smoked in Last 30 Days: No Substance Use Type: Marijuana Advance Directives: No Advance Directives Information Provided: Yes Do you have a plan to hurt others: No Plan Physical Exam ED Vital Signs: Vital Signs - 24 hr 04/06/25 17:25 04/06/25 18:02 Temperature 98.3 F 98.3 F Pulse Rate 69 65 Respiratory Rate 18 18 Blood Pressure 110/67 115/72 Pulse Oximetry 96 Oxygen Delivery Method Room Air Oxygen Flow Rate 94 BMI result Body Mass Index 35.4 Const Other: Alert Orientation/consciousness: patient oriented x3 Resp Effort & Inspection: normal respiratory effort Cardio Other: Normal peripheral perfusion Skin Other: Warm dry no rash Neuro General: patient oriented x3, gait normal, no focal motor deficits and CN's II-XI intact bilaterally Extrem Other: 1 cm linear superficial laceration over left thumb no longer bleeding Psych Other: Cooperative Course Course Course Narrative: RME, this is a rapid medical exam performed by Krzysztof Shultz please refer to primary provider for complete H&P- left thumb laceration from cutting vegetables. She reports her tetanus is up to date Medications Administered Discontinued Medications Generic Name Dose Route Start Last Admin Trade Name Terry PRN Reason Stop Dose Admin Lidocaine/Epinephrine 10 ml 04/06/25 18:11 04/06/25 18:21 Lidocaine Hcl 1%/Epi 1:100,000 10 Ml Vial INFILTRATI 04/06/25 18:12 10 ml ONCE ONE Administration Procedures Laceration Laceration 1: Site: hand Side (If applicable): left Size (cm): 1 Description: linear Depth: simple, single layer Local Anesthetic: lidocaine 1% Amount of anesthesia used (mL): 1 Skin layer closed with: nylon Size (cm): 4-0 Number of sutures: 3 Technique: simple, interrupted Medical Decision Making Medical Decision Making MDM Narrative: 64-year-old female with a history of hypertension, hyperlipidemia, known coronary artery disease, who was not anticoagulated, presents with laceration. Patient states she was slicing vegetables, she subsequently lacerated her left thumb. Tetanus up-to-date. No relative chronic issues History: Per patient I have considered the following differential diagnoses: Laceration, abrasion, contusion, excoriation Plan: Patient has a simple laceration, tetanus up-to-date no imaging required Discharge Plan Discharge Clinical Impression: Laceration of left thumb Patient Disposition: Home, Self-Care Instructions: Laceration (ED) Additional Instructions: 3 sutures were used to repair the laceration. They can be removed in 7 days. See home care instructions. Watch for signs of infection which would include redness, swelling, warmth, pus draining from the site or fever. Follow up with primary care as needed. Prescriptions: No Action spironolactone 25 mg tablet 25 mg PO DAILY atorvastatin 10 mg tablet 40 mg PO DAILY atenolol-chlorthalidone 100-25 mg tablet 1 tab PO DAILY Print Language: Belizean
[2025-04-06 18:02] VITALS: BP 115/72; PULSE 65; RESP 18; TEMP 36.8
--- NOTE | 2025-04-06 18:06 | PC.NURSE ---
Patient presents from home after cutting her left thumb on a vegetable gustavo. Flap lac noted. Respirations even and non-labored. Abdomen soft, non-tender with positive bowel sounds. Up to date on her tetanus shot.
--- NOTE | 2025-04-06 18:10 | PC.NURSE ---
Patient presents from home after cutting her right thumb on a vegetable gustavo. Flap lac noted. Respirations even and non-labored. Abdomen soft, non-tender with positive bowel sounds. Up to date on her tetanus shot.
[2025-04-06] MEDS: Lidocaine HCl 1%/Epi 1:100,000 10 ML VIAL INFILTRATI (18:21)
--- OUTSIDE RECORDS SUMMARY | 2025-04-06 18:32 | XMS_ITS | Clinical Summary ---
Author Organization [facility] Address [address] [place] [address] Phone Care Team Providers Care Overnight Stocker Name Role Phone Jude Melo MD Primary Care Provider [phone] Allergies Active Allergy Reactions Criticality Noted Date Comments Ksfapjqnnq-Syycuem-Zeiobuqn 02/04/20 Hives Doxycycline 02/03/2019 Hives Lorazepam 02/03/2019 Hives Morphine 02/03/2019 Hives Naproxen 02/02/2025 Penicillins 02/02/2025 Shellfish Derived 02/02/2025 Medications amoxicillin-cla vulanate (AUGMENTIN) 875-125 mg per tablet TAKE 1 TABLET BY MOUTH EVERY 12 HOURS FOR 10 DAYS WITH FOOD OR MILK 06/13/2024 Active atenoloL-chlort halidone (TENORETIC) 100-25 mg per tablet Take 1 tablet by mouth 1 (one) time each day. Active atorvastatin (LIPITOR) 40 mg tablet Take 1 tablet (40 mg total) by mouth 1 (one) time each day. Active spironolactone (ALDACTONE) 25 mg tablet Take 1 tablet (25 mg total) by mouth 1 (one) time each day. 01/02/2025 Active flaxseed oiL oil Active dicyclomine (BENTYL) 10 mg capsuleIndicati ons:Irritable bowel syndrome without diarrhea Take 1 capsule (10 mg total) by mouth 3 (three) times a day. 90 each 2 02/23/2025 Active omeprazole (PriLOSEC) [address] capsuleIndicati ons:Dyspepsia Take 1 capsule (20 mg total) by mouth 1 (one) time each day. Do not crush or chew. 30 each 2 02/23/2025 Active Encounters Date Type Department Care Team Description 02/23/2025 Telephone Gastroenterology - [address] [address] Guillermo Bhagat PA Irritable Bowel Syndrome 02/02/2025 Telephone Gastroenterology - [address] [phone] Lilibeth Warren MD Special Procedure 01/30/2025 Telephone Gastroenterology - [address] [phone] Conor Joya MD INFORMATION NEEDED from Last 3 Months Surgical History Surgery Date Site/Laterality Comments HYSTERECTOMY PROCEDURE: HISTORICAL HYSTERECTOMY; COMMENT: 1988 HAND SURGERY PROCEDURE: HISTORICAL HAND SURGERY; COMMENT: 2003 OTHER SURGICAL HISTORY PROCEDURE: AR DILATION & CURETTAGE DX&/THER NONOBSTETRIC TUBAL LIGATION PROCEDURE: HISTORICAL TUBAL LIGATION; COMMENT: 1987 OTHER SURGICAL HISTORY PROCEDURE: LAPAROSCOPY PROCEDURE NEC Medical History Medical History Date Comments HTN (hypertension) DX:HTN (hyper tension) IBS (irritable bowel syndrome) D X:IBS (irritable bowel syndrome) Cervical cancer (CMS/HCC V24, CMS/HCC V28) DX:Cervical cancer (HCC); COMMENT: 1988 Fibromyalgia DX:Fibromyalgia Family History Medical History Relation Name Comments Coronary artery disease Father Lung cancer Mother Relation Name Status Comments Father Mother Social History Tobacco Use Types Packs/Day Years Used Date Smoking Tobacco: Former Cigarettes Q uit: 01/17/2015 Smokeless Tobacco: Never Alcohol Use Standard Drinks/Week Comments No 0 (1 standard drink = 0.6 oz pur e alcohol) Comments Unknown Sex and Gender Information Value Date Recorded Sex Assigned at Not on file Legal Sex Female 6:43 AM EST Gender Identity Not on file Sexual Orientation Not on file Obstetrics History Plan of Treatment Upcoming Encounters Date Type Department Care Team ([facility] st Contact Info) Description 06/09/2025 10:00 AM EDT Appointment [facility] [address] [place] [phone] Lilibeth Warren MD [address] [id number] Health Maintenance Due Date Last Done Comments Breast Cancer Screening 1960 COVID-19 Vaccine (#1) 1963 DTaP,Tdap,and Td Vaccines (1 - Tdap) 1977 Pneumococcal Vaccine: 50+ Ye ars (1 of 2 - PCV) 1977 Zoster Vaccines (1 of 2) 1977 Cholesterol Screening (Lipid Panel) 12/25/2023 Colorectal Cancer Screening: Colonoscopy 12/25/2023 Depression Screening 12/25/2023 Falls Risk Assessment 12/25/2023 Hepatitis C Screening 12/25/2023 Hypertension/CHF/CAD Annual BMP Blood Test 12/25/2023 Medicare Annual Wellness Visit 12/25/2023 Osteoporosis Screening (Bone Density Screening) 12/25/2023 Social Influencers of Health Screening 12/25/2023 Influenza Vaccine (Season Ended) 2025 RSV Immunization Adult Patie nts (1 - 1-dose 75+ series) 2033 HIB [...] patient's age to complete this topic Meningococcal B Vaccine Aged Out No l onger eligible based on patient's age to complete this topic RSV Immunization Patients Un cyn 20 months Aged Out No longer eligible b ased on patient's age to complete this topic Varicella Vaccines Aged Out No longer eligible based on patient's age to complete this topic Insurance [employer] Care Teams Overnight Stocker Relationship Specialty Start Date End Date Jude Melo MD [address] [place] [phone] PCP - General Internal Medicine 01/16/19
--- OUTSIDE RECORDS SUMMARY | 2025-04-06 18:33 | XMS_ITS | Patient Health Record ---
Author Organization [facility] Address [address] [place] [address] Care Team Providers Care Train Operations Manager Name Role Phone Jude Melo MD Primary Care Provider Jelani Ovalles Unavailable [phone] Cierra Gregorio Unavailable [phone] Allergies Allergen (clinical drug ingredient) Drug/Non Drug Allergy documented on EMR Reaction Allergy Type Onset Date Status Onion Onion (uncoded) Unknown Allergy Acti ve lorazepam Ativan Unknown Drug Allergy Active Fiorinal Unknown Drug Allergy Active neomycin Neomycin Sulfate Unknown Drug Allergy Active doxycycline Doxycycline Unknown Drug Allergy Act arabella shrimp allergenic extract Shrimp (Diagnostic) Unknown Drug Allergy Active morphine Morphine Unknown Drug Allergy Active Penicillin Unknown Drug Allergy Active Shellfish (FN) Shellfish-derived Products Unknown Drug Allergy Active Reason For Referral No Information Medications Medication SIG (Take, Route, Frequency, Duration) Notes Start Date End Date Status Flax Seed Oil 1000 MG as directed Orally Active Night Splint AFO - L1930 as directed 02/25/2018 Not-Taking Walking Boot/Pneumatic As directed Wear Daily for Until further notice Active Spironolactone 25 MG 1 tablet Orally for 30 day(s) Active Stool Softener Not-T aking Dicyclomine HCl 10 MG 2 capsules Orally Four times a day Not-Taking Night Splint AFO - L1930 as directed 11/30/2021 Not-Taking Atorvastatin Calcium 40 MG 1 tablet Oral ly Once a day Active Atenolol-Chlorthalidone 100-25 MG 1 tablet Orally Once a day Active Physical Therapy . . . 2-3x/week for 3- 4 weeks Not-Taking Losartan Potassium 100 MG Orally Once a day Active Immunizations Vaccine Route Administration Date Status Comme nts COVID-19 Pfizer BioNTech Vaccine Unknown 08/28/2021 Administered 1st 02/02/21 2nd 02/23/21 Social History Tobacco Use: Social History Observation Description Date Details (start date - stop date) Former Smoker NA - NA Tobacco use other than smoking: Question Answer Notes Are you an other tobacco user? No Tobacco Control (Standard) Question Answer Notes Tobacco use: Former smoker Additional Findings: Tobacco non-user Ex-cigaret te smoker AUDIT-C (Standard) Question Answer Notes Did you have a drink containing alcohol in the p ast year? No Points 0 Interpretation Negative Problems Problem Type SNOMED Code ICD Code Onset Dates Problem Status W/U Status Risk Notes Problem Localized, primary osteoarthritis of the ankle and/or foot (765445640) Primary osteoarthritis, left ankle and foot (M19.072) Active confirmed Problem Acquired hammer toe of right foot (8802930924913793) Other hammer toe(s) (acquired), right foot (M20.41) Active confirmed Problem Other hammer toe(s) (acquired), left foot (M20.42) Active confirmed Problem Essential hypertension (69244454) Essential hypertension (I10) Active confirmed Vital Signs Blood pressure diastolic 68 mm Hg 11/14/2024 Height 5ft 5in in 11/14/2024 Blood pressure systolic 118 mm Hg 11/14/2024 Weight 222 lbs 11/14/2024 BMI 36.94 kg/m2 11/14/2024 Encounters Encounter Location Date Provider Diagnosis [address] [address] 05/01/2024 Jelani Mcmullen Pain in left foot M79.672 and Closed fracture of left foot with delayed healing, [facility] [address] [place] [address] 07/15/2024 Jelani Mcmullen Rupture of right Achilles tendon, initial encounter S86.011A and Pain in right foot M79.671 [facility] [address] 08/06/2024 Jelani Mcmullen Pain in right foot M79.671 and Achilles tendinitis, right leg M76.61 [facility] [place] [address] 09/12/2024 Cierra Perica Pain in right foot M79.671 and Achilles tendinitis, right leg M76.[address] [address] 11/14/2024 Cierra Perica Achilles tendinitis, right leg M76.[address] [address] [facility] [address] [facility] [address] [place] [address] 07/15/[address] [address] 07/25/[address] [address] 08/29/[address] [address] 11/03/2024 [facility] Assessments Encounter Date Diagnosis (ICD Code) Assessment Notes Treatment Notes Treatment Clinical Notes Section Notes 05/01/2024 Pain in left foot (ICD-10 - M79.672) 05/01/2024 Closed fracture of left foot with delayed healing, subsequent encounter (ICD-10 - S92.902G) 07/15/2024 Pain in right foot (ICD-10 - M79.671) 07/15/2024 Rupture of right Achilles tendon, initial encounter (ICD-10 - S86.011A) 08/06/2024 Pain in right foot (ICD-10 - M79.671) 08/06/2024 Achilles tendinitis, right leg (ICD-10 - M76.61) 09/12/2024 Pain in right foot (ICD-10 - M79.671) 09/12/2024 Achilles tendinitis, right leg (ICD-10 - M76.61) 11/14/2024 Achilles tendinitis, right leg (ICD-10 - M76.61) Plan Of Treatment Pending Test Test Name Order Date X ray : Foot, left 2V 02/25/2018 X ray : Foot, right 2V 02/25/2018 X ray : Foot, left 3V 02/12/2023 X ray : Foot, right 3V 07/15/2024 X ray : Foot, right 3V 11/30/2021 Insurance Providers Payer Name Payer Address Payer Phone Subscriber Number Group Number Insured Name Patient Relationship to Insured Coverage Start Date Coverage End Date [employer] [place] [employer] [facility] [address] [place] [address] [phone] [id number] Stephanie Branham Self - patient is the insured Medical (General) History Medical History History ICD Code Back,Hip,and Knee pain Broken bones CAD (Cholesterol) Cancer Fibromyalgia Headaches High blood pressure Lung disease Numbness Chicken pox Joint implants/screws Irritable bowel syndrome Sleep apnea Chronic Costochondritis covid-19 Surgical History Surgery Date(Month/Year) Right hand Surgery 2004 cataract surgery 2017 Hospitalization History Reason Date(Month/Year) [facility] for knee swelling 06/03/18
--- OUTSIDE RECORDS SUMMARY | 2025-04-06 18:33 | XMS_ITS ---
Author Organization [facility] Address [address] [place] [address] Care Team Providers Care Refrigeration Installer Name Role Phone Jude Melo MD Primary Care Provider Jelani Ovalles [phone] REASON FOR VISIT Bill - DOS 07/15/24 Encounters Encounter Location Date Provider Diagnosis [address] [address] 11/03/2024 Jelani Mcmullen Plan Of Treatment No Information Progress Notes * LILYJosh CELESTEJannaB:1960 (64 yo F)Acc No.[id number]:11/03/2024 Patient:?Stephanie BAUTISTA :1960???Age:64 Y???Sex:Female Address:[address] [place] [address], [address] * true * Date:? Generated for Karani lola/Charity/eTransmitting on:?04/06/2025 06:33 PM EDT
--- OUTSIDE RECORDS SUMMARY | 2025-04-06 18:33 | XMS_ITS | Data Portability ---
Author Organization [place] - [facility], Allergy Address [address] [place] [address] Care Team Providers Care Engineer Soils Name Role Phone BISI JJ Primary Care Provider CHYNA BILLS Referring Provider [phone] Assessment Encounter Date Assessment Date Assessment LastModified [...] Address Organization Details Recorded Time Stomatiti s 63592150 Active 2020 Oral thrush; Note: Date Diagnosed : 07/19/2021 12:36 PM (B37.0) Not Available [facility] 4 02:57:23 Candidias is of mouth 30863334 Active 2020 Oral thrush; Note: Date Diagnosed : 07/19/2021 12:36 PM (B37.0) Not Available [facility] 4 02:57:23 Epidermoi d cyst 492552002 Active 2019 Epidermal cyst; Note: Date Diagnosed : 04/08/2020 2:09 PM (L72.0) Not Available [facility] 4 02:57:21 Otalgia of right ear 8003922707 Active 2014 Otalgia, right ear; Note: Date Diagnosed : 5 10:09 AM (H92.01) Not Available [facility] 4 02:57:23 Temporoma ndibular joint disorder 02617445 Active 2014 Temporoma ndibular joint disorder, unspecifi ed; Note: Date Diagnosed : 5 10:09 AM (M26.60) Not Available [facility] 4 02:57:22 Mass of neck 803839704 Active 2014 Localized swelling, mass and lump, neck; Note: Date Diagnosed : 5 10:09 AM (R22.1) Not Available [facility] 4 02:57:21 Neck swelling 768855572 Active 2014 Localized swelling, mass and lump, neck; Note: Date Diagnosed : 5 10:09 AM (R22.1) Not Available [facility] 4 02:57:21 Allergic rhinitis 47168655 Active 2020 Other allergic rhinitis; Note: Date Diagnosed : 03/03/2021 12:36 PM (J30.89) Not Available [facility] 4 02:57:22 Deviated nasal septum 770053536 Active 2023 KELLEN CHANDRA MD [address] [place] [address],[place] [address], [place], [address] , [place] - [facility] 4 10:59:43 Hypertrop hy of nasal turbinate s 92612870 Active 2023 KELLEN CHANDRA MD [address] [place] [address],[place] [address], [place], [address] , [facility] 4 11:00:10 Obstructi ve sleep apnea syndrome 60778221 Active 2023 KELLEN CHANDRA MD [address] [place] [address],[place] [address], [place], [address] , [facility] 4 11:00:46 Problem Notes None recorded. Procedures Surgical History Date Name Laterality Status Provider Name and Address Organization Details Recorded Time 08/25/2024 NasalEndos copy_DP completed KELLEN CHANDRA MD [address] [place] [address],[place] [address], [place], [address], [facility] 08/25/2024 10:58:36 Imaging Results None recorded. Procedure Notes None recorded. Medical Equipment None Reported. Allergies Allergen ID Allergen Name Allergen Category Reaction Reaction Severity Criticality Documentation Date Start Date Code Code System Note Provider Name and Address Organization Details Recorded Time 478154 lorazepam medicatio n other Not available Not available 04/08/2024 6470 RxNorm React ion: unkno wn, unspe cifie d;; Not Available [facility] 4 01:11:29 000472 Fiorinal medicatio n other Not available Not available 04/08/2024 44955 RxNorm React ion: unkno wn, unspe cifie d;; Not Available [facility] 4 01:11:30 924909 doxycycli ne hyclate medicatio n other Not available Not available 04/08/2024 24585 RxNorm React ion: unkno wn, unspe cifie d;; Karon hinojosa [facility] 4 10:47:52 337646 morphine medicatio n other Not available Not available 04/08/2024 7052 RxNorm React ion: unkno wn, unspe cifie d;; Not Available [facility] 4 01:11:33 147412 naproxen medicatio n other Not available Not available 04/08/2024 7258 RxNorm React ion: unkno wn, unspe cifie d;; Not Available [facility] 4 01:11:35 Medications Name Sig Start Date Stop Date Status Note LastModified by Organization Details LastModified Time atorvasta tin 40 mg tablet active Not Available Not Available Not Available nystatin 100,000 unit/mL oral suspensio n by mouth 08/25 completed Medicati on ID: [id number] P rescribe d By Name: EVE Trujillo nd Name: nystatin Send Method: E-Prescr ibed Sub s Allowed: subs OK Speci al Instruct ion: 5 ml swish and spit four times daily x 2-4 weeks Me dication GenericN lorire: nystatin Not Available Not Available Not Available atenolol 100 mg-chlort halidone 25 mg tablet active Not Available Not Available Not Available atorvasta tin 20 mg tablet 04/08 completed Medicati on ID: [id number] Du ration Value: 30 Reason: () Brand Name: atorvast atin Sen d Method: E-Prescr ibed Sub s Allowed: subs OK Medic ationGen ericName : atorvast atin Not Available Not Available Not Available atorvasta tin 10 mg tablet 08/25 completed Not Available Not Available Not Available penicilli n V potassium 500 mg tablet 04/08 completed Medicati on ID: [id number] Du ration Value: 10 Reason: () Brand Name: penicill in V potassiu m Send Method: E-Prescr ibed Sub s Allowed: subs OK Medic ationGen ericName : penicill in V potassiu m Not Available Not Available Not Available omeprazol e 40 mg capsule,d elayed release 04/08 completed Medicati on ID: [id number] Du ration Value: 15 Reason: () Brand [...] mg tablet 04/08 completed Medicati on ID: [id number] Re ason: () Brand Name: zinc Sen d Method: E-Prescr ibed Sub s Allowed: subs OK Medic ationGen ericName : zinc Not Available Not Available Not Available magnesium 250 mg tablet 04/08 completed Medicati on ID: [id number] Re ason: () Brand Name: elieceru m [...] mg tablet 08/25 completed Medicati on ID: [id number] D uration Value: 90 Brand Name: losartan Send Method: E-Prescr ibed Sub s Allowed: subs OK Speci al Instruct ion: TK 1 T PO D Medica tionGene ricName: losartan Not Available Not Available Not Available dicyclomi ne 10 mg capsule 08/25 completed Medicati on ID: [id number] B rand Name: dicyclom ine Send Method: [...] mg) tablet 04/08 completed Medicati on ID: [id number] Re ason: () Brand Name: Calcium 500 Send Method: E-Prescr ibed Sub s Allowed: subs OK Medic ationGen ericName : Calcium 500 Not Available Not Available Not Available mag oxide-D3- turmeric rt xt 04/08 completed Medicati on ID: [id number] Re ason: () Brand Name: mag oxide-d3 -turmeri c rt xt Send Method: E-Prescr ibed Sub s Allowed: subs OK Medic ationGen ericName : mag oxide-d3 -turmeri c rt xt Not Available Not Available Not Available Vitals Date Recorded Body height Body mass index (BMI) Body weight Provider Name and Address Organization Details Last Updated DateTime 08/25/2024 166.37 cm 36.1 kg/m2 36493.32 g Karon Toribio [place] - [facility] 08/25/2024 10:47:42 Social History None recorded. Functional Status None recorded. Mental Status None recorded. Family History Nothing Reported. Medical History No medical history recorded. Gynecological HistoryNo gynecological history recorded. Obstetrics History GPAL:G 0 P 0 0 0 0 Past Encounters Encounter ID Performer Location Encounter Start Date Encounter Closed Date Diagnosis/Indication Diagnosis SNOMED-CT Code Diagnosis ICD10 Code Diagnosis Note [id number] KELLEN CHANDRA MD [facility] [address] [place] [address] 08/25/2024 09:55:26 08/25/2024 11:01:16 Deviated nasal septum 147814291 J34.2 Hypertroph y of nasal turbinates 63567526 J34.3 Obstructiv e sleep apnea syndrome 57298681 G47.33 Health Concerns Section Related Observation LastModified by Organization Detai ls LastModified Time None Recorded Concern Status LastModified by Organization Details LastModified Time None Recorded Advance Directives Directive None Recorded Payers Insurance Date Sequence Insurance Name Policy Number Policy Lira Covered Member ID Lira Member ID Guarantor Name 08/25/2024 1 [facility] [id number] 01 Stephanie Geovnay L Carrol [id number] Stephanie L Carrol Notes Date Note Type Note Provider Name and Address Organization Details Recorded Time 08/25/2024 text/html Patient of Dr Farnsworthnasal congestiondeviated septumtopical nasal steroid with minimal relief partial tear of right achilles last month TEODORO - on CPAP every nightallergic rhinitis PV 07/19/21 Azucena Botello - allergic rhinitis, TMJ, thrush - tx with nystatin KELLEN CHANDRA MD [address] [place] [address], [address], [facility] - [facility] 08/25/2024 11:02:27 OBGyn Episode No OBEpisode recorded.
--- OUTSIDE RECORDS SUMMARY | 2025-04-06 18:33 | XMS_ITS ---
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 Name Role Phone Jude Melo MD Primary Care Provider Jelani Ovalles Unavailable [phone] Cierra Gregorio Unavailable [phone] Allergies Allergen (clinical drug ingredient) Drug/Non Drug [...] (FN) Shellfish-derived Products Unknown Drug Allergy Active REASON FOR VISIT Heel pain Medications Medication SIG (Take, Route, Frequency, Duration) Notes Start Date End Date Status Night Splint AFO - L1930 as directed 02/25/2018 Not-Taking Stool Softener Not-T aking Dicyclomine HCl 10 MG 2 capsules Orally Four times a day Not-Taking Night Splint AFO - L1930 as directed 11/30/2021 Not-Taking Physical Therapy . . . 2-3x/week for 3- 4 weeks Not-Taking Walking Boot/Pneumatic As directed Wear Daily for Until further notice Active Spironolactone 25 MG 1 tablet Orally for 30 day(s) Active Atorvastatin Calcium 40 MG 1 tablet Oral ly Once a day Active Atenolol-Chlorthalidone 100-25 MG 1 tablet Orally Once a day Active Losartan Potassium 100 MG Orally Once a day Active Flax Seed Oil 1000 MG as directed Orally Active Social History Tobacco Use: Social History Observation [...] Problem Status W/U Status Risk Notes Problem Essential hypertension (I10) Active confirmed Vital Signs Height 5ft 5in in 11/14/2024 Weight 222 lbs 11/14/2024 BMI 36.94 kg/m2 11/14/2024 Blood pressure systolic 118 mm Hg 11/14/20 Blood pressure diastolic 68 mm Hg 024 Encounters Encounter Location Date Provider Diagnosis [facility] [address] [address] 11/14/2024 Cierra Gregorio Achilles tendinitis, right leg M76.61 Assessments Encounter Date Diagnosis (ICD Code) Assessment Notes Treatment Notes Treatment Clinical Notes Section Notes 11/14/2024 Achilles tendinitis, right leg (ICD-10 - M76.61) Plan Of Treatment Next Appt Details Follow Up: prn, Reason: Progress Notes * Candace BAUTISTAB:1960 (64 yo F)Acc No.[id number]:11/14/2024 Progress Note Patient:?Stephanie BAUTISTA Provider:?Cierra Gregorio DPM :1960???Age:64 Y???Sex:Female D ate:11/14/2024 Address:[address] [place] [id number] Pcp:Jude Melo MD Subjective: * Chief Complaints: * ???Heel pain * HPI: ???Foot Pain:?Location?Rearfoot, Right .?Duration:?07/14/24.?Onset/Cause:?sudden, trauma [ stepping out of high bed--twisted foot and felt/heard a pop].?Course:?resolved.?Aggrevated:?any pressure, standing, walking.?Treatments:?rest, ice, elevation, use of cane; use of knee scooter and use of cast boot, pt did not go to PT,? PEM[facility] therapy at [facility] resolved her pain?.? * ROS:?General/Constitutional:?Nausea?denies.?Vomiting?denies.?Hunger Thirst?denies.?Loss appetite?denies.?Chills?denies.?Fatigue?denies.?Fever?denies.?Night Sweats?denies.?Unexplained weight loss?denies.?Unexplained weight gain?denies.?HEENTM:?Dentures?denies.?Dizziness?denies.?Glasses/contacts?denies.?Retinopathy?de nies.?Blurred/double vision?denies.?TMJ?denies.?Discharge/drainage?denies.?Implants?denies.?Sore throat?denies.?Dental implants?denies.?Hard of hearing ?denies.?Difficulty chewing/swallowing/speaking?denies.?Nose bleeds?denies.?Sore mouth?denies.?Respiratory:?On Oxygen?denies.?Pneumonia/pleurisy?denies.?Bronchitis?denies.?Emphysema?denies.?C oughing?denies.?Cough blood?denies.?Shortness of breath?denies.?Wheezing?denies.?Cardiovascular:?Pacemaker?denies.?MVP?denies.?WPW?denies.?CHF?denies.?Heart attack?denies.?Septal defect?denies.?Rapid beat?denies.?Chest pain ?denies.?Atrial Fib.?denies.?Murmur/Palpitations?denies.?Gastrointestinal:?Hemorrhoids?denies.?Stomach/Abdominal pain?denies.?Dark blood stool?denies.?Irritable bowel ?denies.?Constipation?denies.?Diarrhea?denies.?Hematology:?Swelling?denies.?Clots?denies.?Varicose Veins?denies.?Bruising?denies.?Bleeding problem?denies.?Genitourinary:?Blood urine?denies.?Frequent/Painfu/urination/bladder control?denies.?Kidney stones?denies.?Infection (UTI)?denies.?Nephropathy?denies.?sex trans dis (STD)?denies.?Prostate?denies.?Musculoskeletal:?Hammertoes?denies.?Bunions?denies.?Back Pain?admits.?Muscle Cramps/ Resting?denies.?Muscle cramps / walking?denies.?Generalized aches and pains?admits.?Weakness?denies.?Integ.:?[place]man?denies.?Scars?denies.?Corns/calluses?denies.?Ingrown nails?denies.?Painful nails?denies.?Open Sores?denies.?Rashes?denies.?Neurologic:?Difficulty sleeping?denies.?Brain disorder?denies.?Numbness?denies.?Balance trouble?denies.?Confusion?denies.?Fainting/blackouts?denies.?Tingling?denies.?Tr emors?denies.? * Medical History:? * Surgical History:?Right hand Surgery 2004cataract surgery 2017 * Hospitalization/Major Diagno stic Procedure:?[facility] for knee swelling 06/03/18 * Family History:?Mother: dece ased, poor circulation, diagnosed with Unspecified heart disease, Family history of arthritis, Other malignant neoplasm of unspecified site.?Father: , diabetes, kidney/liver disease, foot problems, diagnosed with Diabetic - NIDDM, Unspecified essential hypertension, Family history of arthritis.?Spouse: alive.?Siblings: diagnosed with Diabetic - NIDDM.? * Social History:?Tobacco Use:?Tobacco use other than smoking?Are you an other tobacco user??No ?Tobacco Control (Standard)?Tobacco use:?Former smoker ?Additional Findings: Tobacco non-user?Ex-cigarette smoker ???Drugs/Alcohol:?Drugs?Have you used drugs other than those for medical reasons in the past 12 months??Yes ?Marijuana??Yes ???Miscellaneous:?Caffeine: no, none. ?Children: yes, 2 Step. ?Exercise: yes, walking Daily, gym. ?Marital status: . ?Occupation: Disabled. ???Drug/Alcohol:?AUDIT-C (Standard)?Did you have a drink containing alcohol in the past year??No ?Points?0 ?Interpretation?Negative * Medications:?TakingFlax Seed Oil 1000 MG Capsule as directed Orally Spironolactone 25 MG Tablet 1 tablet Orally Walking Boot/Pneumatic As directed Wear Daily Atenolol-Chlorthalidone 100-25 MG Tablet 1 tablet Orally Once a day Atorvastatin Calcium 40 MG Tablet 1 tablet Orally Once a day Losartan Potassium 100 MG Tablet Orally Once a day Taking Flax Seed Oil 1000 MG Capsule as directed Orally Taking Spironolactone 25 MG Tablet 1 tablet Orally Taking Walking Boot/Pneumatic As directed Wear Daily Taking Atenolol-Chlorthalidone 100-25 MG Tablet 1 tablet Orally Once a day Taking Atorvastatin Calcium 40 MG Tablet 1 tablet Orally Once a day Taking Losartan Potassium 100 MG Tablet Orally Once a day Not-Taking/PRNPhysical Therapy . . . . 2-3x/week Night Splint AFO - L1930 as directed Dicyclomine HCl 10 MG Capsule 2 capsules Orally Four times a day Stool Softener Night Splint AFO - L1930 as directed Medication List reviewed and reconciled with the patientNot-Taking/PRN Physical Therapy . . . . 2-3x/week Not-Taking/PRN Night Splint AFO - L1930 as directed Not-Taking/PRN Dicyclomine HCl 10 MG Capsule 2 capsules Orally Four times a day Not-Taking/PRN Stool Softener Not-Taking/PRN Night Splint AFO - L1930 as directed Medication List reviewed and reconciled with the patient * Allergies:?AtivanFiorinalDox ycyclineOnionMorphineShellfish-derived ProductsShrimp (Diagnostic)Neomycin Sulfate: AllergyPenicillin: Allergyyes[Allergies Verified] Objective: * Vitals:?Ht: 5ft 5in, Wt:222, BMI:36.94, Shoe size: 9W, BP:118/68mm Hg, Ht-cm: 165.1 cm, Wt-k.7 kg. * Examination: ???General Examination: ?GENERAL APPEARANCE:?pleasant, alert, well nourished, well developed, well hydrated, with good attention to hygene/body habitus, and in no acute distress.?ORIENTED:?person,place, and time.?Neuroma Pain: ?PALPATION:?No interspace pain noted on palpation.?Vascular: ?DP PULSES (B):?2/4, B/L.?PT PULSES (B):?2/4, B/L.?CAPILLARY FILL TIME:?3 secs. per digit, B/L.?TROPHIC CONDITION-TEXTURE/ELASTICITY/TURGOR/HAIR GROWTH (B):?normal, B/L.?TEMPERTURE GRADIENT (C):?warm to cool, proximal to distal, B/L.?PIGMENTATION:?normal, B/L.?EDEMA (C):?absent, B/L.?TELANGECTASIA:?absent.?VARICOSITIES:?absent.?Dermatologic: ?SKIN FINDINGS:?Skin exam reveals normal texture, elasticity, and tugor. There are no masses. The interspaces are clear, B/L .?Orthopedic: ?MUSCLE STRENGTH:?5/5 all groups in a symmetrical fashion , B/L.?GAIT ABNORMALITY:?pronated, abducted, B/L.?Heel Pain: ?INSPECTION REVEALS:?RIGHT foot , Prominent posterior and posterior/superior heel present , NO?Pain on palpation to Posterior Superior Aspect Calcaneus , NO?Pain on palpation to Achilles tendon/bursa No inflammation or swelling present , Equinus knee extended , Neg [place].? Assessment: * Assessment: 1.?Achilles tendinitis, duong shepherd leg - M76.61 (Primary)??? Plan: * Treatment: * Procedure Codes:? * Preventive Medicine:? ??Counseling:?Discussion:?-12: Office or other outpatient visit for the evaluation and management of an established patient, which required a medically appropriate history and/or examination and STRAIGHTFORWARD level of MEDICAL DECISION MAKING, 1 SELF-LIMITED OR MINOR PROBLEM, MINIMAL- NO AMOUNT/COMPLEXITY OF DATA TO BE REVIEWED/ANALYZED, AND MINIMAL RISK OF COMPLICATION/MORBIDITY. The visit on the day of the encounter encompassed interpreting the data and educating the patient as to the nature of their condition, treatment options available according to their individual PMH, meds, allergies, and overall health/living conditions, as well as any potential risks or complications that may occur from a failure to adhere to, and participate in, the recommended course of therapy. The discussion included a complete verbal, and/or written explanation of the examination results, any x-rays taken, the proposed diagnosis, and outline of the treatment plan. A schedule for future care needs was also explained. The patient verbalized an understanding of the instructions at this time and agreed to be an active participant in their treatment. If the patient should think of any questions or concerns after the visit, I have encouraged the patient to call the office, Patients podiatric issue has improved, they should call the office with any future issues or concerns.?Heel pain:?Given recent successful results to treatment, the patient wishes to continue with the present plan for their condition. PREVENTIVE STRATEGIES were reviewed with the patient to avoid recurrent issues ..? ??Screening/Special Tests:?Fall Risk?Assessment:?Performed ?Screening:?No falls in the past year ?FALLS: Screening for Future Fall Risk?Have you had any falls with injury in the past year??No * Follow Up:?prn * Images: * Sign off status: Completed true * Provider:?Cierra Gregorio DPM Date:? Generated for Newton davila/Charity/Carin on:?04/06/2025 06:32 PM EDT History and Physical Notes * HPI (History of Present Illness) Category Sub-Category Detail Notes Category Not es Foot Pain Aggrevated: any pressure, standing, walk ing Onset/Cause: sudden, trauma [ jose armando pping out of high bed--twisted foot and felt/heard a pop] Course: resolved Duration: 07/14/24 Treatments: rest, ice, elevation , use of cane; use of knee scooter and use of cast boot, pt did not go to PT, [facility] resolved her pain Location Rearfoot, Right Examination Category Sub-Category Detail Notes Category Not es Neuroma Pain PALPATION: No interspace pain noted on palpation Heel Pain INSPECTION REVEALS: RIGHT foot , Prominent posterior and posterior/superior heel present , NO Pain on palpation to Posterior Superior Aspect Calcaneus , NO Pain on palpation to Achilles tendon/bursa No inflammation or swelling present , Equinus knee extended , Neg [place] Dermatologic SKIN FINDINGS: Skin exam reveal s normal texture, elasticity, and tugor. There are no masses. The interspaces are clear, B/L Orthopedic GAIT ABNORMALITY: pronated, abducted, B/L MUSCLE STRENGTH: 5/5 all groups in a symmetrical fashion , B/L General Examination GENERAL APPEARANCE: pleasant , alert, well nourished, well developed, well hydrated, with good attention to hygene/body habitus, and in no acute distress ORIENTED: person,place, and ti me Vascular DP PULSES (B): 2/4, B/L PT PULSES (B): 2/4, B/L CAPILLARY FILL TIME: 3 secs. per digit, B/L TEMPERTURE GRADIENT (C): warm to cool, p roximal to distal, B/L TROPHIC CONDITION-TEXTURE/ELASTICITY/TURGOR/HAIR GROWTH (B): normal, B/L EDEMA (C): absent, B/L TELANGECTASIA: absent VARICOSITIES: absent PIGMENTATION: normal, B/L
--- OUTSIDE RECORDS SUMMARY | 2025-04-06 18:33 | XMS_ITS ---
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 Name Role Phone Jude Melo MD Primary Care Provider Jelani Ovalles Unavailable [phone] Cierra Gregorio Unavailable [phone] Allergies Allergen (clinical drug ingredient) Drug/Non Drug [...] Active morphine Morphine Unknown Drug Allergy Active Shellfish (FN) Shellfish-derived Products Unknown Drug Allergy Active REASON FOR VISIT pcp-05/22/2024, Heel pain Medications Medication SIG (Take, Route, Frequency, Duration) Notes Start Date End Date Status Night Splint AFO - L1930 as directed 11/30/2021 Not-Taking Dicyclomine HCl 10 MG 2 capsules Orally Four times a day Not-Taking Night Splint AFO - L1930 as directed 02/25/2018 Not-Taking Stool Softener Not-T aking Physical Therapy . . . 2-3x/week for 3- 4 weeks Active Atenolol-Chlorthalidone 100-25 MG 1 tablet Orally Once a day Active Walking Boot/Pneumatic As directed Wear Daily for Until further notice Active Losartan Potassium 100 MG Orally Once a day Active Atorvastatin Calcium 40 MG 1 tablet Oral ly Once a day Active Spironolactone 25 MG 1 tablet Orally for 30 day(s) Active Flax Seed Oil 1000 MG as directed Orally Active Social History Tobacco Use: Social History Observation Description Date Details (start date - stop date) Former Smoker NA - NA Tobacco Use/Smoking Question Answer Notes Are you a: former smoker Additional Findings: Tobacco Non-User Current no n-smoker Alcohol Screen Question Answer Notes Did you have a drink containing alcohol in the p ast year? No Points 0 Interpretation Negative Tobacco use other than smoking: Question Answer Notes Are you an other tobacco user? No Vital Signs Height 5ft 5in in 09/12/2024 Weight 222 lbs 09/12/2024 BMI 36.94 kg/m2 09/12/2024 Blood pressure systolic 124 mm Hg 09/12/20 24 Blood pressure diastolic 72 mm Hg 024 Encounters Encounter Location Date Provider Diagnosis [facility] [address] [place] [address] 09/12/2024 Cierra Gregorio Pain in right foot M79.671 and Achilles tendinitis, right leg M76.61 Assessments Encounter Date Diagnosis (ICD Code) Assessment Notes Treatment Notes Treatment Clinical Notes Section Notes 09/12/2024 Pain in right foot (ICD-10 - M79.671) 09/12/2024 Achilles tendinitis, right leg (ICD-10 - M76.61) Plan Of Treatment Medication Medication Name Sig Start Date Stop Date Notes Physical Therapy . . . 2-3x/week for 3-4 weeks Next Appt Details Follow Up: 2 Months, Reason: Progress Notes * Candace BAUTISTAB:1960 (63 yo F)Acc No.[id number]:09/12/2024 Progress Note Patient:?Stephanie Bautista Provider:?Cierra Gregorio DPM :1960???Age:63 Y???Sex:Female D ate:09/12/2024 Address:[address] [place], [place] [address] [place], [id number] Pcp:Jude Melo MD Subjective: * Chief Complaints: * ???Pcp-05/22/2024Heel pain * HPI: ???Foot Pain:?Location?Rearfoot, Right .?Duration:?07/14/24.?Onset/Cause:?sudden, trauma [ stepping out of high bed--twisted foot and felt/heard a pop].?Course:?improved, less pain and swelling.?Aggrevated:?any pressure, standing, walking.?Treatments:?rest, ice, elevation, use of cane; use of knee scooter and use of cast boot, pt did not go to PT, states her recent had MOREIRA.? * ROS:?General/Constitutional:?Nausea?denies, denies, denies.?Vomiting?denies, denies, denies.?Hunger Thirst?denies, denies, denies.?Loss appetite?denies, denies, denies.?Chills?denies, denies, denies.?Fatigue?denies, denies, denies.?Fever?denies, denies, denies.?Night Sweats?denies, denies, denies.?Unexplained weight loss?denies, denies, denies.?Unexplained weight gain?denies, denies.?Ophthalmologic:?Blurred vision?denies.?Red eye?denies.?HEENTM:?Dentures?denies, denies, denies.?Dizziness?denies, denies, denies.?Glasses/contacts?denies, denies, denies.?Retinopathy?denies, denies, denies.?Blurred/double vision?denies, denies, denies.?TMJ?denies, denies, denies.?Discharge/drainage?denies, denies, denies.?Implants?denies, denies, denies.?Sore throat?denies, denies.?Dental implants?denies, denies.?Hard of hearing ?denies, denies, denies.?Difficulty chewing/swallowing/speaking?denies, denies, denies.?Nose bleeds?denies, denies, denies.?Sore mouth?denies, denies, denies.?Swollen glands?denies.?Respiratory:?On Oxygen?denies, denies, denies.?Pneumonia/pleurisy?denies, denies, denies.?Bronchitis?denies, denies, denies.?Emphysema?denies, denies, denies.?Coughing?denies, denies, denies.?Cough blood?denies, denies, denies.?Shortness of breath?denies, denies, denies.?Wheezing?denies, denies, denies.?Cardiovascular:?Pacemaker?denies, denies, denies.?MVP?denies, denies, denies.?WPW?denies, denies, denies.?CHF?denies, denies, denies.?Heart attack?denies, denies, denies.?Septal defect?denies, denies, denies.?Rapid beat denies, denies, denies.?Chest pain ?denies, denies, denies.?Atrial Fib.?denies, denies, denies.?Murmur/Palpitations?denies, denies, denies.?Gastrointestinal:?Hemorrhoids?denies, denies, denies.?Stomach/Abdominal pain?denies, admits, denies.?Dark blood stool?denies, denies, denies.?Irritable bowel ?denies, admits, denies.?Constipation?denies, denies, denies.?Diarrhea denies, denies, denies.?Vomiting?denies.?Hematology:?Swelling?denies, denies, denies.?Clots?denies, denies.?Varicose Veins?denies, denies.?Bruising?denies, denies, denies.?Bleeding problem?denies, denies, denies.?Genitourinary:?Blood urine?denies, denies, denies.?Frequent/Painfu/urination/bladder control?denies, denies, denies.?Kidney stones?denies, denies, denies.?Infection (UTI)?denies, denies, denies.?Nephropathy?denies, denies, denies. sex trans dis (STD)?denies, denies.?Prostate?denies, denies.?Musculoskeletal:?Hammertoes?denies, denies, denies.?Bunions?denies, denies, denies.?Scoliosis/kyphosis?denies.?Back Pain?denies, admits.?Muscle Cramps/ Resting?denies, denies.?Muscle cramps / walking?denies, denies, denies. Generalized aches and pains?admits, admits, denies.?Weakness?denies, denies, denies.?Integ.:?Lieberman?denies, denies, denies.?Scars?denies, denies, denies.?Corns/calluses?denies, denies, denies.?Ingrown nails?denies, denies, denies.?Painful nails?denies,admits, denies.?Open Sores?denies, denies.?Rashes?denies, denies, denies.?Neurologic:?Difficulty sleeping?denies, denies, denies.?Bipolar?denies.?Brain disorder?denies, denies, denies.?Numbness?denies, admits.?Balance trouble?denies, denies, denies.?Confusion?denies, denies, denies.?Fainting/blackouts?denies, denies, denies.?Headache?denies.?Tingling?denies, admits.?Tremors?denies, denies, denies.? * Medical History:? * Surgical History:?Right hand Surgery 2003cataract surgery 2016 * Hospitalization/Major Diagno stic Procedure:?[facility] for knee swelling 06/03/18 * Family History:?Mother: dece ased, poor circulation, diagnosed with Family history of arthritis, Unspecified heart disease, Other malignant neoplasm of unspecified site.?Father: , diabetes, kidney/liver disease, foot problems, diagnosed with Family history of arthritis, Diabetic - NIDDM, Unspecified essential hypertension.?Spouse: alive.?Siblings: diagnosed with Diabetic - NIDDM.? * Social History:?Tobacco Use:?Tobacco Use/Smoking?Are you a:?former smoker ?Additional Findings: Tobacco Non-User?Current non-smoker ?Tobacco use other than smoking?Are you an other tobacco user??No ???Drugs/Alcohol:?Drugs?Have you used drugs other than those for medical reasons in the past 12 months??Yes ?Marijuana??Yes ?Alcohol Screen?Did you have a drink containing alcohol in the past year??No ?Points?0 ?Interpretation?Negative ???Miscellaneous:?no Caffeine, none. ?Children: yes, 2 Step. ?Exercise: yes, walking Daily, gym. ?Marital status: . ?Occupation: Disabled. * Medications:?TakingFlax Seed Oil 1000 MG Capsule as directed Orally Spironolactone 25 MG Tablet 1 tablet Orally Walking Boot/Pneumatic As directed Wear DailyAtenolol-Chlorthalidone 100-25 MG Tablet 1 tablet Orally Once a dayAtorvastatin Calcium 40 MG Tablet 1 tablet Orally Once a dayLosartan Potassium 100 MG Tablet Orally Once a dayPhysical Therapy . . . . 2-3x/weekTaking Flax Seed Oil 1000 MG Capsule as directed Orally Taking Spironolactone 25 MG Tablet 1 tablet Orally Taking Walking Boot/Pneumatic As directed Wear DailyTaking Atenolol-Chlorthalidone 100- 25 MG Tablet 1 tablet Orally Once a dayTaking Atorvastatin Calcium 40 MG Tablet 1 tablet Orally Once a dayTaking Losartan Potassium 100 MG Tablet Orally Once a dayTaking Physical Therapy . . . . 2-3x/weekNot-Taking/PRNNight Splint AFO - L1930 as directed Dicyclomine HCl 10 MG Capsule 2 capsules Orally Four times a dayStool Softener Night Splint AFO - L1930 as directed Medication List reviewed and reconciled with the patientNot-Taking/PRN Night Splint AFO - L1930 as directed Not-Taking/PRN Dicyclomine HCl 10 MG Capsule 2 capsules Orally Four times a dayNot-Taking/PRN Stool Softener Not-Taking/PRN Night Splint AFO - L1930 as directed Medication List reviewed and reconciled with the patient * Allergies:?AtivanFiorinalDox ycyclineOnionMorphineShellfish-derived ProductsShrimp (Diagnostic)Neomycin Sulfate: Allergyyes[Allergies Verified] Objective: * Vitals:?Ht: 5ft 5in, Wt:222, BMI:36.94, Shoe size: 9, BP:124/72 mm Hg, Ht-cm: 165.1 cm, Wt-k.7 kg. * Examination: ???General Examination: ?GENERAL APPEARANCE:?pleasant, alert, well nourished, well developed, well hydrated, with good attention to hygene/body habitus, and in no acute distress.?ORIENTED:?person,place, and time.?Neuroma Pain: ?PALPATION:?No interspace pain noted on palpation.?Vascular: ?DP PULSES(B):?2/4, B/L.?PT PULSES(B):?2/4, B/L.?CAPILLARY FILL TIME:?3 secs. per digit, B/L.?TROPHIC CONDITION-TEXTURE/ELASTICITY/TURGOR/HAIR GROWTH(B):?normal, B/L.?TEMPERTURE GRADIENT(C):?warm to cool, proximal to distal, B/L.?PIGMENTATION:?normal, B/L.?EDEMA(C):?absent, B/L.?TELANGECTASIA:?absent.?VARICOSITIES:?absent.?Dermatologic: ?SKIN FINDINGS:?Skin exam reveals normal texture, elasticity, and tugor. There are no masses. The interspaces are clear, B/L .?Orthopedic: ?MUSCLE STRENGTH:?5/5 all groups in a symmetrical fashion , B/L.?GAIT ABNORMALITY:?pronated, abducted, B/L.?Heel Pain: ?INSPECTION REVEALS:?RIGHT foot , Prominent posterior and posterior/superior heel present , Pain on palpation to Posterior Superior Aspect Calcaneus , Pain on palpation to Achilles tendon/bursa with inflammation and swelling present , Equinus knee extended , Neg [place].? Assessment: * Assessment: 1.?Pain in right foot - M79. 671?2.?Achilles tendinitis, right leg - M76.61 (Primary)? Plan: * Treatment: * Procedure Codes:? * Preventive Medicine:? ??Counseling:?Discussion:?-13: Office or other outpatient visit for the evaluation and management of an established patient, which required a medically appropriate history and/or examination and LOW level of DECISION MAKING for: 1 STABLE ACUTE UNCOMPLICATED PROBLEM, 2 OR MORE MINOR PROBLEMS, OR 1 STABLE CHRONIC PROBLEM, THAT POSE(S) A LOW RISK FOR MORBIDITY/MORTALITY. The visit on the day of the [...] have encouraged the patient to call the office.?Heel pain:?ACHILLES: I explained to the patient the possible etiologies of Achilles Tendonitis including foot type/shoegear/activity level/exercise routine and the risks/benefits of all the different treatment options for pain including: No treatment at all, Rest, Ice, NSAIDs(only if well tolerated after meals), New/supportive Shoegear, Strappings and Tapings, Stretching exercises, Deep Tissue Massage, Heel cups/cushions, Arch support/shoe inserts, Custom orthoses, Topical analgesics including Aspercream/Voltaren gel, Night splint/AFO Bracing for stiffness, Cast boot with crutches/cane/or walker for assisted ambulation, Physical Therapy, EPAT/ESWT, Interfil injection therapy, as well as surgical [place]/Calcanectomy- tendon debridement surgical procedures if needed. Recommendations were made to limit barefoot walking, eliminate wearing nonsupportive shoegear (i.e. flip-flops or sandals, or a shoe with an easily bendable, foldable, or twistable sole) and wear shoegear with a good solid sole, a supportive arch, and plenty of room for an insert/orthotic if necessary. If wearing sandals was required by the patient, we recommended orthopedic sandals such as Orthoheel or Birkenstock even while in the home. If the patient wore heels in the past, we recommended they continue, but eliminate the use of flats. The advantages and disadvantages of each option were discussed and the patients' questions re: shoegear, custom vs prefabricated inserts, activity level, PO vs Topical medications (and their respective potential complications/drug interactions/side effects), and consistency in home treatment regimens for optimal success were answered to their verbally confirmed satisfaction. Literature detailing Achilles Tendonitis and the various treatment options were dispensed and reviewed.?Physical Therapy:?Discussed the potential short and long-term benefits of physical therapy including pain relief, improved function for activity of daily life, return to exercise, increased quality of life. We discussed the usual/customary PT treatment schedule of 2-3 times per week for 4 weeks to as much as 12 weeks depending on insurance approval/coverage. We discussed various PT treatment modalities including, but not limited to, gate training, muscular stabilization, stretching, deep tissue therapeutic massage, ultrasound, TENS, iontophoresis, fluidotherapy, laser therapy, hydrotherapy, contrast ice/heat bath, and passive as well as active ROM exercises. Questions re: PT including visit amounts, rates of success, and goals were answered to the patient's satisfaction. The patient verbally confirmed the medical necessity and use of PT therapy treatment for their MSK condition.? * Follow Up:?2 Months * Images: * Sign off status: Completed true * Provider:?Cierra Gregorio, DOUGIE Date:? Generated for Newton davila/Charity/Carin on:?04/06/2025 06:32 PM EDT History and Physical Notes * HPI (History of Present Illness) Category Sub-Category Detail Notes Category Not es Foot Pain Aggrevated: any pressure, standing, walk ing Onset/Cause: sudden, trauma [ jose armando pping out of high bed--twisted foot and felt/heard a pop] Course: improved, less pain and swelling Duration: 07/14/24 Treatments: rest, ice, elevation , use of cane; use of knee scooter and use of cast boot, pt did not go to PT, states her recent had MOREIRA Location Rearfoot, Right Examination Category Sub-Category Detail Notes Category Not es Neuroma Pain PALPATION: No interspace pain noted on palpation Heel Pain INSPECTION REVEALS: RIGHT foot , Prominent posterior and posterior/superior heel present , Pain on palpation to Posterior Superior Aspect Calcaneus , Pain on palpation to Achilles tendon/bursa with inflammation and swelling present , Equinus knee extended , Neg [place] Dermatologic SKIN FINDINGS: Skin exam reveal s [...]
[2025-04-06 18:53] VITALS: BP 115/72; PULSE 65; RESP 18; TEMP 36.8
== END 2025-04-06 18:54 | disposition home or self-care (01) ==
PROVIDERS: Emergency Provider Emergency Medicine; PCP Internal Medicine
DX: S61.012A Laceration without foreign body of left thumb without damage to nail, initial encounter (principal); W26.0XXA Contact with knife, initial encounter; M79.645 Pain in left finger(s); Y93.G1 Activity, food preparation and clean up; Y92.010 Kitchen of single-family (private) house as the place of occurrence of the external cause; Y99.9 Unspecified external cause status
CPT/HCPCS: 12001; 99284; J2004

== ENCOUNTER 2025-11-13 03:23 | Emergency (ER) | payer MEDICARE, SELFPAY ==
--- OUTSIDE RECORDS SUMMARY | 2025-11-08 23:59 | XMS_ITS | Continuity of Care Document ---
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 Shoe Worker Name Role Phone Lorie YOUNGER, Jude Garcias Primary Care Physician [phone] Encounter [facility] [place] Date(s): 10/09/25 - 11/08/25 [facility] Adult [address] [place] [address]- Encounter Type: Triage Allergies, Adverse Reactions, Alerts Substance Criticality Severity Reaction Reaction Severity Status naproxen 1 rash Active doxycycline rash Active penicillin Active morphine rash Active shellfish throat closed [...] n pneumococcal 20-valent conjugate vaccine 06/19/23 Given [id number] 12y+ bivalent booster vax 08/21/22 Recorded SARS-CoV-2 mRNA ([id number]) vax 03/08/22 Recorded SARS-CoV-2 (COVID-19) mRNA BNT-162b2 vac 08/28/21 Recorded SARS-CoV-2 (COVID-19) mRNA BNT-162b2 vac 03/03/21 Recorded SARS-CoV-2 (COVID-19) mRNA BNT-162b2 vac 02/23/21 Recorded SARS-CoV-2 (COVID-19) mRNA BNT-162b2 vac 02/02/21 Recorded Influenza Virus Vaccine (oldterm) 09/08/20 Recorde d tetanus/diphtheria/pertussis, acel(Tdap) 05/12/19 Given tetanus/diphtheria/pertussis, acel(Tdap) 02/04/09 Recorded pneumococcal 23-valent vaccine 09/04/17 Given pneumococcal 13-valent vaccine 02/13/13 Recorded Medications aspirin 81 mg oral capsule 1 capsule = 81 mg, By Mouth, Daily, # 30 capsule, 0 Refills, Maintenance, 01/27/25 2:44:00 PM EST, Capsule, Partial fill upon patient request if the prescription is for a schedule II opioid drug. Start Date: 01/27/25 Status: Ordered Medication Dispense Status: Completed Quantity: 30.0 Unit: capsule Total Allowed Fills: 1 Fills Dispensed: 0 atenolol-chlorthalidone 100 mg-25 mg oral tablet 1 tablet, By Mouth, Daily, # 90 tablet, 1 Refills, Maintenance, 06/24/25 10:56:00 AM EDT, [facility], 90, TAKE 1 TABLET DAILY, 167.6, cm, 05/08/25 14:49:00 EDT, Height Start Date: 06/24/25 Status: Ordered Medication Dispense Status: Completed Quantity: 90.0 Unit: tablet Total Allowed Fills: 1 Fills Dispensed: 0 atorvastatin 40 mg oral tablet 1 tablet, By Mouth, Daily, # 90 tablet, 1 Refills, Maintenance, 06/24/25 10:56:00 AM EDT, [facility], 167.6, cm, 05/08/25 14:49:00 EDT, Height Start Date: 06/24/25 Status: Ordered Medication Dispense Status: Completed Quantity: 90.0 Unit: tablet Total Allowed Fills: 1 Fills Dispensed: 0 Auto CPAP Supplies Auto CPAP Supplies, See Instructions, # 3 each, Refills 3, Tot. Refills 3, Maintenance, DX: TEODORO (G47.33) Mask Hose Filters For nightly use SUSANNA: [facility], 02/29/24 10:11:00 AM EDT, Supply Start Date: 02/29/24 Status: Ordered Medication Dispense Status: Completed Quantity: 3.0 Unit: each Total Allowed Fills: 4 Fills Dispensed: 0 AutoCPAP 14-19 with heated humidification from [employer] AutoCPAP 14-19 with heated humidification from [employer], See Instructions, # 1 each, Refills 0, Tot.Refills 0, Maintenance, use overnight and naps from [employer], 03/21/18 10:53:58 AM EDT, Compound Start Date: 03/21/18 Status: Ordered Medication Dispense Status: Completed Quantity: 1.0 Unit: each Total Allowed Fills: 1 Fills Dispensed: 0 Azithromycin 5 Day Dose Pack 250 mg oral tablet 1 pack/packet, By Mouth, Once, take 2 tablets (500 mg) on day 1, then 1 tablet (250 mg) on days 2 through 5 per package instructions, # 6 tablet, 0 Refills, Soft Stop, 08/21/25 10:31:00 AM EDT, Tablet, [id number], Partial fill upon patient request if the prescription is for a schedule II opioid drug., 167.6, cm, 08/21/25 10:04:00 EDT, Height Start Date: 08/21/25 Status: Ordered Medication Dispense Status: Completed Quantity: 6.0 Unit: tablet Total Allowed Fills: 1 Fills Dispensed: 0 budesonide-formoterol 80 mcg-4.5 mcg/inh inhalation aerosol with adapter 2, inhalation, Inhalation, 2 times a day, in the morning and the evening rinse mouth and throat after use, # 6.9 Gm, Refills 0, Tot. Refills 0, Maintenance, 08/21/25 10:30:00 AM EDT, Aerosol, Route toPharmacy Electronically, DCPDP_ID- [id number], [id number], 167.6, cm, 08/21/25 10:04:00 EDT, Height Start Date: 08/21/25 Status: Ordered Medication Dispense Status: Completed Quantity: 6.9 Unit: g Total Allowed Fills: 1 Fills Dispensed: 0 Indications: Acute upper respiratory infection, unspecified; Chronic obstructive pulmonary disease with (acute) exacerbation; Flax Seed Oil 0 Refills, Maintenance, 11/03/21 9:19:00 AM EST, Partial fill upon patient request if the prescription is for a schedule II opioid drug. Start Date: 11/03/21 Status: Ordered Medication Dispense Status: Completed Total Allowed Fills: 1 Fills Dispensed: 0 meloxicam 15 mg oral tablet 1 capsule, By Mouth, Daily, # 14 capsule, 0 Refills, Maintenance, 11/03/25 12:49:00 PM EST, Capsule,[id number], Partial fill upon patient request if the prescription is for a schedule II opioid drug., 167.6, cm, 11/03/25 12:08:00 EST, Height Start Date: 11/03/25 Stop Date: 11/17/25 Status: Ordered Medication Dispense Status: Completed Quantity: 14.0 Unit: capsule Total Allowed Fills: 1 Fills Dispensed: 0 Probiotic + Colostrum oral powder for reconstitution 1 pack/packet, By Mouth, Daily, 0 Refills, Maintenance, 02/25/20 8:37:00 AM EDT Start Date: 02/25/20 Status: Ordered Medication Dispense Status: Completed Total Allowed Fills: 1 Fills Dispensed: 0 spironolactone 25 mg oral tablet 1, tablet, By Mouth, Daily, # 90 tablet, Refills 1, Maintenance, 06/24/25 10:56:00 AM EDT, Route to Pharmacy Electronically, [facility], 167.6, cm, 05/08/25 14:49:00 EDT, Height Start Date: 06/24/25 Status: Ordered Medication Dispense Status: Completed Quantity: 90.0 Unit: tablet Total Allowed Fills: 1 Fills Dispensed: 0 Vitamin D 17995 iu oral capsule 50,000 International_Units, By Mouth, Daily, Refills 0, Maintenance, 08/03/25 2:09:00 PM EDT, Partialfill upon patient request if the prescription is for a schedule II opioid drug. Start Date: 08/03/25 Status: Ordered Medication Dispense Status: Completed Total Allowed Fills: 1 Fills Dispensed: 0 Problem List Condition Confirmation Course Effective Dates Status Health Status Informant Allergic rhinitis Confirmed Active Coronary artery calcification Confirmed Active Marijuana use Confirmed Active Abnormal CT scan of lung Confirmed Active Costochondritis Confirmed Active COVID-19 virus infection Confirmed Active Deviated septum Confirmed Active Glucose intolerance Confirmed Active Diverticulosis 1 Confirmed Active Fibromyalgia Confirmed Active Gastritis 2 Confirmed Active History of multiple miscarriages Confirmed Active S/P cataract surgery 3 Confirmed Active H/O colonoscopy 4, 5 Confirmed Active History of cervical cancer 6 Confirmed Active Hypercholesterolemia Confirmed Active Hypertension Confirmed Active Internal hemorrhoids 7 Confirmed Active Irritable bowel syndrome 8 Confirmed Active Low back pain Confirmed Active TEODORO (obstructive sleep apnea) Confirmed Active Obstructive sleep apnea Confirmed Active Leg pain, bilateral Confirmed Active Pectus excavatum Confirmed Active Polyp of colon 9 Confirmed Active Emphysema of lung 10 Confirmed Active Keratosis seborrheica 11 Confirmed Active Severe obesity (BMI 35.0-39.9) with comorbidity Confirmed Active Ovarian torsion, acquired 12 Confirmed Active Vertigo Confirmed Active 1colo 2024 2By EGD 2016. 3Performed bilaterally [address] Green [id number]; repeat 2024 5Colonoscopy 2014 positive polyps, repeat 2017 6Status post hysterectomy 1988. 7colo [address] Arora 9colo 2024 10CT scan 2016 11Followed by dermatology, Dr. Mcgregor 12Followed by Dr. Luna Social History Social History Type Response Sexual Gender identity: [facility] ntifies as female. Preferred pronoun: She/her. Smoking Status Former smoker; Other : Quit smoking 2014. Approximately 16-48-wttw-year history of smoking; entered on: 02/16/17 Sex Sex Representation Female (finding) Patient Care team information Care Team Personnel Name: Jude Melo MD Position: S Physician - Primary Care Member Role: PCP Address: [address] [place] [address]- Telecom: Care Team Related Persons Name: TERRY BAUTISTA Insurance Providers Guarantor name: JACK BAUTISTA [facility] Plan Information #: 1 Payer: [employer] PPO Payer Identifier: NA Member Number: [id number] Group Number: [id number] Subscriber Identifier: NA Relationship to Subscriber: self Coverage Type: Medicare PPO Coverage Verification Date: NA Telecom: NA Address: NA
--- OUTSIDE RECORDS SUMMARY | 2025-11-10 23:59 | XMS_ITS | Continuity of Care Document ---
Author Organization [facility] Mendez lt Address [address] [place] [id number]- Care Team Providers Care Farm Equipment Assembler Name Role Phone Jude Melo MD Primary Care Physician [phone] [id number] Date(s): 11/03/25 - 11/10/25 [facility] Adult [address] [place] [address]- Attending Physician: Emmanuel Alfaro MD Referring Physician: Jude Melo MD Encounter Type: Office Visit Allergies, Adverse Reactions, Alerts Substance Criticality Severity Reaction Reaction Severity Status naproxen 1 rash Active penicillin Active doxycycline rash Active morphine rash Active shellfish throat closed Active Florinef Acetate rash Act arabella Ativan rash Active Onions throat closed Active 1hives Functional Status Functional Status Assessment Assessment Assessment Component Result Effecti ve Date STEADI 3 Score 0 11/03/25 Functional Status Assessment Assessment Assessment Component Result Effecti ve Date Disability status [CUBS] I'm Thriving - no identified disability 11/03/25 Are you deaf, or do you have serious difficulty hearing No 11/03/25 Difficulty communica ting in usual language No 11/03/25 Are you blind, or do you have serious difficulty seeing, even when wearing glasses No 11/03/25 Difficulty Reading O r Writing No 11/03/25 Do you need any ankush tional assistance or accommodations during your visit No 11/03/25 Do you have difficul ty dressing or bathing No 11/03/25 Because of a physica l, mental, or emotional condition, do you have difficulty doing errands alone such as visiting a physician's office or shopping No 11/03/25 Because of a physica l, mental, or emotional condition, do you have serious difficulty concentrating, remembering, or making decisions No 11/03/25 Do you have serious difficulty walking or climbing stairs No 11/03/25 Immunizations Given and Recorded Vaccine Date Status [...] n pneumococcal 20-valent conjugate vaccine 06/19/23 Given [id number] 12y+ bivalent booster vax 08/21/22 Recorded SARS-CoV-2 mRNA (dzxpyrk-usiw-fryyi) vax 03/08/22 Recorded SARS-CoV-2 (COVID-19) mRNA BNT-162b2 [...] 1 Refills, Maintenance, 06/24/25 10:56:00 AM EDT, [facility], 90, TAKE 1 TABLET DAILY, 167.6, cm, 05/08/25 14:49:00 EDT, Height Start Date: 06/24/25 Status: Ordered Medication Dispense Status: Completed Quantity: 90.0 Unit: tablet Total Allowed Fills: 1 Fills Dispensed: 0 atorvastatin 40 mg oral tablet 1 tablet, By Mouth, Daily, # 90 tablet, 1 Refills, Maintenance, 06/24/25 10:56:00 AM EDT, [facility], 167.6, cm, 05/08/25 [...] Soft Stop, 08/21/25 10:31:00 AM EDT, Tablet, [facility] #[id number], Partial fill upon patient request if the [...] 10:30:00 AM EDT, Aerosol, Route toPharmacy Electronically, NCPDP_ID- [id number], [facility] #[id number], 167.6, cm, 08/21/25 10:04:00 EDT, Height Start [...] 0 Refills, Maintenance, 11/03/25 12:49:00 PM EST, Capsule,[facility] #[id number], Partial fill upon patient request if the [...] 10:56:00 AM EDT, Route to Pharmacy Electronically, [facility], 167.6, cm, 05/08/25 14:49:00 EDT, Height Start Date: 06/24/25 Status: Ordered Medication Dispense Status: Completed Quantity: 90.0 Unit: tablet Total Allowed Fills: 1 Fills Dispensed: 0 Vitamin D 50877 iu oral capsule 50,000 International_Units, By Mouth, Daily, Refills 0, Maintenance, 08/03/25 2:09:00 PM EDT, Partialfill upon patient request if the prescription is for a schedule II opioid drug. Start Date: 08/03/25 Status: Ordered Medication Dispense Status: Completed Total Allowed Fills: 1 Fills Dispensed: 0 Mental Status Mental Status Assessment Assessment Assessment Component Result Effecti ve Date Patient Health Questionnaire 2 item (PHQ-2) total score [Reported] 0 11/03/25 Problem List Condition Confirmation Course Effective Dates [...] 2016. 3Performed bilaterally [address] Green [id number]; repeat 2024 5Colonoscopy 2014 positive polyps, repeat 2017 6Status post hysterectomy 1988. 7colo [address] Arora 9colo 2024 10CT scan 2016 11Followed by dermatology, Dr. Mcgregor 12Followed by Dr. Luna Vital Signs Most recent to oldest [Reference Range]: 1 Height 167.6 cm (11/03/25 12:08 PM) Weight 100.2 kg (11/03/25 12:08 PM) Oxygen Saturation [94-100 %] 96 % (11/03/25 12:08 PM) Pulse Rate [55-90 bpm] 61 bpm (11/03/25 12:08 PM) Body Mass Index [18.5-24.99 kg/m2] 35.67 kg/m2 *H* (11/03/25 12:08 PM) Blood Pressure [90-138/55-84 mm Hg] 104/ 67mm Hg (11/03/25 12:08 PM) Temperature [96.8-100.4 DegF] 95.4 DegF *L* (11/03/25 12:08 PM) Mode of Delivery (Oxygen) Room air (11/03/25 12:08 PM) Blood pressure sites Arm, left (11/03/25 12:08 PM) Temperature Route Oral (11/03/25 12:08 PM) Weight Obtained Via Standing scale (11/03/25 12:08 PM) Social History Social History Type Response Sexual Gender identity: Kaiser ntifies as female. Preferred pronoun: She/her. Smoking Status Former smoker; Other : Quit smoking 2014. Approximately 12-37-ipwb-year history of smoking; entered on: 02/16/17 Sex Sex Representation Female (finding) EKG study * Event Display: ECG 12-Lead Authored Date: Please click on pdf link to open report * Event Display: ECG 12-Lead Authored Date: Ventricular Rate: 59 BPM Atrial Rate: 59 BPM P-R Interval: 160 ms QRS Duration: 86 ms Q-T Interval: 434 ms QTC Calculation(Bazett): 429 ms P Peterson: 31 degrees R Peterson: -16 degrees T Peterson: 35 degrees Sinus bradycardia Inferior infarct , age undetermined Abnormal ECG When compared with ECG of 14-Aug-2023 10:09, No significant change was found Confirmed by Jude Uribe ([id number]) on 11/03/2025 1:50:23 PM [place]: Jude Uribe Patient Care team information Care Team Personnel Name: Jude Melo MD Position: [facility] Physician - Primary Care Member Role: PCP Address: [address] [place] [id number] Telecom: Care Team Related Persons Name: TERRY BAUTISTA Insurance Providers Guarantor name: JACK BAUTISTA [facility] Plan Information #: 1 Payer: [facility] P[facility] Payer Identifier: [facility] Member Number: [id number] Group Number: [id number] Subscriber Identifier: [id number] Relationship to Subscriber: self Coverage Type: Medicare PPO Coverage Verification Date: Telecom: NA Address:
--- OUTSIDE RECORDS SUMMARY | 2025-11-10 23:59 | XMS_ITS | Continuity of Care Document ---
Author Organization [facility] Address [address] [place] [address] [place] [address]- Care Team Providers Care Customer Professional Name Role Phone Jude Melo MD Primary Care Physician Encounter 11/03/25 - 11/10/25 [facility] [address], [facility] [address] [place] [address]- Attending Physician: Jude Melo MD Admitting Physician: Jude Melo MD Referring Physician: Jude Melo MD Encounter Type: OutPatient One Time Allergies, Adverse Reactions, Alerts Substance Criticality Severity [...] n pneumococcal 20-valent conjugate vaccine 06/19/23 Given [id number] 12y+ bivalent booster vax 08/21/22 Recorded SARS-CoV-2 mRNA (fwbloyy-rtrj-gazrq) vax 03/08/22 Recorded SARS-CoV-2 (COVID-19) mRNA BNT-162b2 [...] 10:56:00 AM EDT, [facility], 90, TAKE 1 TABLET [...] Soft Stop, 08/21/25 10:31:00 AM EDT, Tablet, [facility] #[id number], Partial fill upon patient request if the [...] AM EDT, Aerosol, Route toPharmacy Electronically, NCPDP_ID- [id number], [facility] #[id number], 167.6, cm, 08/21/25 10:04:00 EDT, Height Start [...] 0 Refills, Maintenance, 11/03/25 12:49:00 PM EST, Capsule,[facility] #[id number], Partial fill upon patient request if the [...] Fills: 1 Fills Dispensed: 0 Vitamin D 92962 iu oral capsule 50,000 International_Units, By Mouth, [...] 2016. 3Performed bilaterally [address] Green [id number]; repeat 2024 5Colonoscopy 2014 positive polyps, repeat 2017 6Status post hysterectomy 1988. 7colo [address] Arora 9colo 2024 10CT scan 2016 11Followed by dermatology, Dr. Mcgregor 12Followed by Dr. Luna Results Radiology Reports * Exam Date Time Procedure Performing Provider Status 11/03/25 1:22 PM Chest 2 Views Frontal and Lat Auth (Verified) Notes: (Chest 2 Views Frontal and Lat) Reason For Exam: Pleuritic Pain RESULT: Chest 2 Views Frontal and Lat Chest 2 Views Frontal and Lat Reason: Pleuritic Pain COMPARISON: Multiple priors most recent 08/21/2025. FINDINGS: LINES AND TUBES: None. LUNGS AND PLEURA: Mild linear atelectasis and or scarring in left lung base. Otherwise clear lungs. Normal pulmonary vascularity. No evidence of pleural effusion. No pneumothorax. HEART, MEDIASTINUM AND DANY: Heart is normal in size. Aorta is mildly calcified. BONES AND SOFT TISSUES: No acute abnormality. Moderate pectus excavatum deformity. Mild degenerative changes of the thoracic spine. IMPRESSION: No acute abnormality. WSN: [id number] Ordering Physician: Jude Melo Dictated By: Vitaliy Medeiros MD, V Dictated Date/Time: 11/03/25 2:22 pm Reviewed By: Vitaliy Medeiros MD, V Signed By: Vitaliy Medeiros MD, V Signed Date/Time: 11/03/25 2:22 pm Transcribed By: BRAD Transcribed Date/Time: 11/03/25 2:19 pm Social History Social History Type Response Sexual Gender identity: Kaiser ntifies as female. Preferred pronoun: She/her. Smoking Status Former smoker; Other : Quit smoking 2014. Approximately 36-23-wbss-year history of smoking; entered on: 02/16/17 Sex Sex Representation Female (finding) Patient Care team information Care Team Personnel Name: Jude Melo MD Position: [facility] Physician - Primary Care Member Role: PCP Address: [address] [place] [id number] Telecom: Care Team Related Persons Name: TERRY BAUTISTA Insurance Providers Guarantor name: JACK [facility] Plan Information #: 1 Payer: [facility] PPO Payer Identifier: NA Member Number: [id number] Group Number: [id number] Subscriber Identifier: [id number] Relationship to Subscriber: self Coverage Type: Medicare PPO Coverage Verification Date: NA Telecom: NA Address: NA
--- NOTE | ~2025-11-13 | CT_ITS ---
CLINICAL HISTORY: RLQ pain, hx appendectomy, oophrectomy, refuses IV CT abdomen and pelvis without contrast Comparison: None provided Findings: No consolidation or effusion. There is severe atherosclerotic disease of the coronary arteries. The unenhanced liver, gallbladder, spleen, adrenal glands and pancreas are unremarkable. 3 mm nonobstructing right-sided lower pole calculus. No obstructive uropathy bilaterally. The bladder is partially distended without focal abnormality. No bowel obstruction or free air. Mild colonic fecal retention. No free fluid, abscess or significant adenopathy. Diffuse atherosclerotic disease, moderately severe. No acute osseous finding. Degenerative changes most pronounced at L5-S1. Impression: No definite acute process. Nonobstructing 3 mm right renal calculus. This document has been electronically signed by: Lopez Reagan MD on 11/13/2025 07:14:35
[2025-11-13 03:25] VITALS: BP 104/65; PULSE 73; RESP 22; TEMP 37; O2SAT 94; BMI 34.9
--- OUTSIDE RECORDS SUMMARY | 2025-11-13 03:36 | XMS_ITS | Clinical Summary ---
Author Organization [facility] Address [address] [place] [address] Phone Care Team Providers Care Nutritional Assistant Name Role Phone Jude Melo MD Primary Care Provider [phone] Allergies Active Allergy Reactions Criticality Noted Date Comments Oivhslflqf-Bfhmfwe-Ibsmmqgj 02/04/20 Hives Doxycycline 02/03/2019 Hives Lorazepam 02/03/2019 Hives Morphine 02/03/2019 Hives Naproxen 02/02/2025 Penicillins 02/02/2025 Shellfish Derived 02/02/2025 Medications amoxicillin-cla vulanate (AUGMENTIN) 875-125 mg per tablet TAKE 1 TABLET BY MOUTH EVERY 12 HOURS FOR 10 DAYS WITH FOOD OR MILK 4 Active atenoloL-chlort halidone (TENORETIC) 100-25 mg per tablet Take 1 tablet by mouth 1 (one) time each day. Active atorvastatin (LIPITOR) 40 mg tablet Take 1 tablet (40 mg total) by mouth 1 (one) time each day. Active spironolactone (ALDACTONE) 25 mg tablet Take 1 tablet (25 mg total) by mouth 1 (one) time each day. 5 Active flaxseed oiL oil Active omeprazole (PriLOSEC) [address] capsuleIndicati ons:Dyspepsia TAKE 1 CAPSULE(20 MG) BY MOUTH 1 TIME EACH DAY. DO NOT CRUSH OR CHEW 30 capsule 4 5 Active polyethylene glycol (Golytely) 236-22.74-6.74 -5.86 gram solution Take 4L by mouth once for one dose. May substitue any PEG. Starting at 2PM the day before your procedure drink 1 8oz glasses at your own pace until you complete half of the gallon. Finish 2nd half of the gallon at 8PM. 4000 mL Active bisacodyL (DULCOLAX) 5 mg EC tablet Take 2 tablets by mouth right before beginning bowel prep. See instructions provided by the office 2 tablet 5 Active Surgical History Surgery Date Site/Laterality Comments HYSTERECTOMY PROCEDURE: HISTORICAL HYSTERECTOMY; COMMENT: 1988 HAND SURGERY PROCEDURE: HISTORICAL HAND SURGERY; COMMENT: right, 2003 OTHER SURGICAL HISTORY PROCEDURE: NV DILATION & CURETTAGE DX&/THER NONOBSTETRIC TUBAL LIGATION PROCEDURE: HISTORICAL TUBAL LIGATION; COMMENT: 1987 OTHER SURGICAL HISTORY PROCEDURE: LAPAROSCOPY PROCEDURE NEC HAND SURGERY Right Medical History Medical History Date Comments HTN (hypertension) DX:HTN (hyper tension) IBS (irritable bowel syndrome) D X:IBS (irritable bowel syndrome) Cervical cancer ([facility] V24, [facility] V28) DX:Cervical cancer (HCC); COMMENT: 1988 Fibromyalgia DX:Fibromyalgia COPD (chronic obstructive pu lmonary disease) ([facility] V24, [facility] V28) Sleep apnea TEODORO (obstructive sleep apnea) Family History Medical History Relation Name Comments Coronary artery disease Father Lung cancer Mother Relation Name Status Comments Father Mother Social History Tobacco Use Types Packs/Day Years Used Date Smoking Tobacco: Former Cigarettes 0 Q uit: 01/17/2015 Smokeless Tobacco: Never Alcohol Use Standard Drinks/Week Comments No 0 (1 standard drink = 0.6 oz pur e alcohol) Interpersonal Safety Answer Date Record ed Physical Abuse Unrecognized value 08/10/2025 Verbal Abuse Unrecognized value 08/10/2025 Comments Unknown Sex and Gender Information Value Date Recorded Sex Assigned at Female 08/10/2025 9:24 AM EDT Legal Sex Female 6:43 AM EST Gender Identity Female 08/10/2025 9:24 AM EDT Sexual Orientation Straight 08/10/2025 9: 24 AM EDT Last Filed Vital Signs Vital Sign Reading Time Taken Comments Blood Pressure 124/70 08/10/2025 10:48 AM EDT Pulse 58 08/10/2025 10:48 AM EDT Temperature 35.9 C (96.6 F) 08/10/2025 9:54 AM EDT Respiratory Rate 17 08/10/2025 10:48 AM EDT Oxygen Saturation 98% 08/10/2025 10:48 AM EDT Inhaled Oxygen Concentration - - Weight 95.3 kg (210 lb) 08/10/2025 9:54 AM EDT Height 165.1 cm (5' 5 ) 08/10/2025 9:54 AM EDT Body Mass Index 34.95 08/10/2025 9:54 AM EDT Plan of Treatment Health Maintenance Due Date Last Done Comments Breast Cancer Screening 1960 Zoster Vaccines (1 of 2) 1977 RSV Immunization Adult Patients (1 - Risk 50-74 years 1-dose series) 2008 Cholesterol Screening (Lipid Panel) 12/25/2023 Hepatitis C Screening 12/25/2023 Hypertension/CHF/CAD Annual BMP Blood Test 12/25/2023 Medicare Annual Wellness Visit 12/25/2023 Osteoporosis Screening (Bone Density Screening) 12/25/2023 Social Influencers of Health Screening 12/25/2023 Depression Screening 11/26/2024 COVID-19 Vaccine ( season) 2025 08/21/2022, 03/08/2022, 08/28/2021, Additional history exists Influenza Vaccine (#1) 2025 , 08/21/2022, 09/29/2021, Additional history exists Falls Risk Assessment 08/10/2026 08/10/2025 DTaP,Tdap,and Td Vaccines (3 - Td or Tdap) 05/12/2029 05/12/2019, 02/04/2009 Colorectal Cancer Screening: Colonoscopy 08/10/2032 08/10/2025 Pneumococcal Vaccine: 50+ Years Completed 06/19/2023, 09/04/2017, 02/13/2013 HIB Vaccines Aged Out No longer eligi [...] to complete this topic RSV Immunization Patients Under 20 months Aged Out No longer eligible based on patient's age to complete this topic Varicella Vaccines Aged Out No longer eligible based on patient's age to complete this topic Medical Devices Implanted Type Area Certified Orthoptist Device Identifier Shelf Expiration Date Model / Serial / Lot Cadaver Bone Right: Hand Procedures Procedure Name Priority Date/Time Associated Diagnosis Comments COLONOSCOPY Routine 08/10/2025 10:27 AM EDT Hx of colonic polyps from Last 3 Months or Most Recently Relevant to Health Maintenance Results * COLONOSCOPY Anesthesia - MAC; [facility] END[facility]COPY (08/10/2025 10:27 AM EDT) Anatomical Region Laterality Modality Endoscopy 08/10/2025 10:0 4 AM EDT Impressions 08/10/2025 10:28 AM EDT - The examined portion of the ileum was normal. - One 2 mm polyp in the ascending colon, removed with a cold snare. Resected and retrieved. - Two 3 mm polyps in the descending colon, removed with a cold snare. Resected and retrieved. - Diverticulosis in the sigmoid colon. - Internal hemorrhoids. - The examination was otherwise normal. Recommendation: - Await pathology results. - Repeat colonoscopy for surveillance based on pathology results. Narrative 08/10/2025 10:28 AM EDT [facility] Patient Name: Jack Bautista Procedure Date: 08/10/2025 10:04 AM Date of : 1960 Age: 64 Gender: Female Note Status: Finalized Attending MD: Lilibeth Warren MD, Procedure Date No Time: 08/10/2025 Procedure: Colonoscopy Indications: High risk colon cancer surveillance: Personal history of colonic polyps Providers: Lilibeth Warren MD Referring MD: Jude Melo MD Medicines: Propofol per Anesthesia Complications: No immediate complications. Estimated Blood Loss: Estimated blood loss: none. Procedure: Pre-Anesthesia Assessment: - ASA Grade Assessment: III - A patient with severe systemic disease. After I obtained informed consent, the scope was passed under direct vision. Throughout the procedure, the patient's blood pressure, pulse, and oxygen saturations were monitored continuously.The Olympus Pediatric Colonoscope was introduced through the anus and advanced to the terminal ileum. The colonoscopy was performed without difficulty. The patient tolerated the procedure well. The quality of the bowel preparation was excellent. Findings: The perianal and digital rectal examinations were normal. The terminal ileum appeared normal. A 2 mm polyp was found in the ascending colon. The polyp was sessile. The polyp was removed with a cold snare. Resection and retrieval were complete. Two flat polyps were found in the descending colon. The polyps were 3 mm in size. These polyps were removed with a cold snare. Resection and retrieval were complete. A few small-mouthed diverticula were found in the sigmoid colon. Internal hemorrhoids were found during retroflexion. The hemorrhoids were Grade I (internal hemorrhoids that do not prolapse). The exam was otherwise without abnormality. Procedure Code(s): --- Professional --- 41346, Colonoscopy, flexible; with removal of tumor(s), polyp(s), or other lesion(s) by snare technique Diagnosis Code(s): --- Professional --- Z86.010, Personal history of colonic polyps D12.2, Benign neoplasm of ascending colon D12.4, Benign neoplasm of descending colon CPT copyright 2020 [employer]. All rights reserved. The codes documented in this report are preliminary and upon activities officer review may be revised to meet current compliance requirements. Lilibeth Warren MD 08/10/2025 10:28:09 AM This report has been signed electronically.Lilibeth Warren MD Number of Addenda: 0 Note Initiated On: 08/10/2025 10:04 AM Scope In: Scope Out: Endoscopy Department at [facility] - [address] [place] [id number] Procedure Note Lilibeth Warren MD - 08/10/2025 [facility] Patient Name: Jack Bautista Procedure Date: 08/10/2025 10:04 AM Date of : 1960 Age: 64 Gender: Female Note Status: Finalized Attending MD: Lilibeth Warren MD, Procedure Date No Time: 08/10/2025 Procedure: Colonoscopy Indications: High risk colon cancer surveillance: Personalhistory of colonic polyps Providers: Lilibeth Warren MD Referring MD: Jude Melo MD Medicines: Propofol per Anesthesia Complications: No immediate complications. Estimated Blood Loss: Estimated blood loss: none. Procedure: Pre-Anesthesia Assessment: - ASA Grade Assessment: III - A patient with severe systemic disease. After I obtained informed consent, the scope was passed under direct vision. Throughout theprocedure, the patient's blood pressure, pulse, and oxygen saturations were monitored continuously.The Olympus Pediatric Colonoscope was introduced through theanus and advanced to the terminal ileum. The colonoscopy was performed without difficulty. The patient tolerated the procedure well. The quality of thebowel preparation was excellent. Findings: The perianal and digital rectal examinations were normal. The terminal ileum appeared normal. A 2 mm polyp was found in the ascending colon. The polyp was sessile. The polyp was removed with acold snare. Resection and retrieval were complete. Two flat polyps were found in the descending colon. The polyps were 3 mm in size. These polyps were removed with a cold snare. Resection and retrieval were complete. A few small-mouthed diverticula were found in the sigmoid colon. Internal hemorrhoids were found duringretroflexion. The hemorrhoids were Grade I (internal hemorrhoids that do not prolapse). The exam was otherwise without abnormality. Procedure Code(s): --- Professional --- 62602, Colonoscopy, flexible; with removal of tumor(s), polyp(s), or other lesion(s) by snare technique Diagnosis Code(s): --- Professional --- Z86.010, Personal history of colonic polyps D12.2, Benign neoplasm of ascending colon D12.4, Benign neoplasm of descending colon CPT copyright 2020 [employer]. All rights reserved. The codes documented in this report are preliminary and upon activities officer reviewmay be revised to meet current compliance requirements. Lilibeth Warren MD 08/10/2025 10:28:09 AM This report has been signed electronically.Lilibeth Warren MD Number of Addenda: 0 Note Initiated On: 08/10/2025 10:04 AM Scope In: Scope Out: Endoscopy Department at [facility] - [address] [place] [phone] IMPRESSION: - The examined portion of the ileum was normal. - One 2 mm polyp in the ascending colon, removedwith a cold snare. Resected and retrieved. - Two 3 mm polyps in the descending colon, removed with a cold snare. Resected and retrieved. - Diverticulosis in the sigmoid colon. - Internal hemorrhoids. - The examination was otherwise normal. Recommendation: - Await pathology results. - Repeat colonoscopy for surveillance based on pathology results. Lilibeth Warren MD GI~PROCEDURE ORDERABLES Final Result from Last 3 Months or Most Recently Relevant to Health Maintenance Insurance [employer] - [place] MEDICARE ADVANTAGE Care Teams Nutritional Assistant Relationship Specialty Start Date End Date Jude Melo MD [address] [place] [id number] PCP - General Internal Medicine 01/16/19
--- OUTSIDE RECORDS SUMMARY | 2025-11-13 03:36 | XMS_ITS | Patient Health Record ---
Author Organization [facility] Address [address] [place] [address] Care Team Providers Care Web Site Developer Name Role Phone Jude Melo MD Primary Care Provider Jleani Moreno Unavailable [phone] Cierra Gregorio Unavailable [phone] Allergies Allergen (clinical drug ingredient) Drug/Non Drug [...] 02/25/2018 Not-Taking Walking Boot/Pneumatic As directed Wear Daily; Duration: Until further notice Active Spironolactone 25 MG 1 tablet Orally; Duration: 30 day(s) Active Stool Softener Not-T aking Dicyclomine HCl 10 MG 2 capsules Orally Four times a day Not-Taking Night Splint AFO - L1930 as directed 11/30/2021 Not-Taking Atorvastatin Calcium 40 MG 1 tablet Oral ly Once a day Active Atenolol-Chlorthalidone 100-25 MG 1 tablet Orally Once a day Active Physical Therapy . . . 2-3x/week; Duration: 3-4 weeks Not-Taking Losartan Potassium 100 MG Orally [...] primary osteoarthritis of the ankle and/or foot (925144067) Primary osteoarthritis, left ankle and foot (M19.072) Active confirmed Problem Acquired hammer toe of right foot (3269538645510475) Other hammer toe(s) (acquired), right foot (M20.41) Active confirmed Problem Acquired hammer toe of left foot (7415032909755920) Other hammer toe(s) (acquired), left foot (M20.42) Active confirmed Problem Essential hypertension (56952207) Essential hypertension (I10) Active confirmed Vital Signs Blood pressure diastolic 68 mm Hg 11/14/2024 Height 5ft 5in in 11/14/2024 Blood pressure systolic 118 mm Hg 11/14/2024 Weight 222 lbs 11/14/2024 BMI 36.94 kg/m2 11/14/2024 Encounters Encounter Location Date Provider Diagnosis [facility] [address] [place] [address] 11/14/2024 Cierra Gregorio Achilles tendinitis, right leg [...] Date [facility] [employer]age [address] [place], [place] [address] [id number] Stephanie Branham Self - patient is the [...]
--- OUTSIDE RECORDS SUMMARY | 2025-11-13 03:36 | XMS_ITS | Continuity of Care Document ---
Author Organization [place] - [facility], [facility] Address [address] [place] [address] Care Team Providers Care Counter Waiter Name Role Phone CHYNA BILLS Primary Care Provider Assessment Encounter Date Assessment Date Assessment LastModified by Organization Details LastModified Time 09/11/2025 09/11/2025 The patient is experiencing bilateral ear discomfort, which is likely related to temporomandibular joint (TMJ) dysfunction rather than an ear-specific issue. The discomfort appears to be associated with muscle tension or spasms around the jaw joint. I recommend the following treatment plan: Warm compresses and gentle massage to alleviate muscle tension around the jaw. Anti-inflammatory medications such as Motrin or Aleve to reduce inflammation and discomfort. Adjusting the diet to include softer foods to minimize strain on the jaw. The patient should consult her dentist regarding the use of a bite guard, as she previously benefited from a custom-made guard for teeth grinding. This may help alleviate TMJ-related symptoms. The patient is advised to monitor her symptoms and follow up if there is no improvement or if symptoms worsen. [email or web address] Not available 09/11/2025 13:30:27 Plan of Treatment Reminders Order Date Submit Date Provider Last Modified By Organization Details Last Modified Time Details Appointments None record ed. Lab None record ed. Referral None record ed. Procedures None record ed. Surgeries None record ed. Imaging None record ed. Medication Orders None record ed. Patient TargetsNo targets recorded. Patient Instructions Encounter Date Encounter Id Patient Instructions Last Modified By Organization Details Last Modified Time 09/11/2025 [id number] - Apply warm compresses to the jaw area. - Perform gentle massage to alleviate muscle tension. - Use anti-inflammatory medications such as Motrin or Aleve as needed. - Adjust diet to include softer foods. - Consult with a dentist regarding the use of a bite guard. [email or web address] Not available 09/11/2025 13:30:27 Please note: Parts of this encounter note have been generated by AI based on audio conversation. Patient consent was required prior to utilizing this technology. Content review was required prior to finalizing the note. [email or web address] Not available 09/11/2025 13:30:28 Reason for Referral None Reported. Problems Name Problem SNOMED Code Status Onset Date Resolution Date Notes Provider Name and Address Organization Details Recorded Time Otalgia of right ear 0917406970 Active 2014 Otalgia, right ear; Note: Date Diagnosed : 5 10:09 AM (H92.01) Not Available [facility] 4 02:57:23 Temporoma ndibular joint disorder 71376626 Active 2014 Temporoma ndibular joint disorder, unspecifi ed; Note: Date Diagnosed : 5 10:09 AM (M26.60) Not Available [facility] 4 02:57:22 Mass of neck 765450174 Active 2014 Localized swelling, mass and lump, neck; Note: Date Diagnosed : 5 10:09 AM (R22.1) Not Available [facility] 4 02:57:21 Neck swelling 791588007 Active 2014 Localized swelling, mass and lump, neck; Note: Date Diagnosed : 5 10:09 AM (R22.1) Not Available [facility] 4 02:57:21 Epidermoi d cyst 855064354 Active 2019 Epidermal cyst; Note: Date Diagnosed : 04/08/2020 2:09 PM (L72.0) Not Available [facility] 4 02:57:21 Allergic rhinitis 53453928 Active 2020 Other allergic rhinitis; Note: Date Diagnosed : 03/03/2021 12:36 PM (J30.89) Not Available [facility] 4 02:57:22 Stomatiti s 95479698 Active 2020 Oral thrush; Note: Date Diagnosed : 07/19/2021 12:36 PM (B37.0) Not Available [facility] 4 02:57:23 Candidias is of mouth 36209113 Active 2020 Oral thrush; Note: Date Diagnosed : 07/19/2021 12:36 PM (B37.0) Not Available [facility] 4 02:57:23 Deviated nasal septum 348186570 Active 2023 KELLEN CHANDRA MD [address], [place], [address] , [place] - [facility] 4 10:59:43 Hypertrop hy of nasal turbinate s 31271498 Active 2023 KELLEN CHANDRA MD [address], [place], [address] , [place] - [facility] 4 11:00:10 Obstructi ve sleep apnea syndrome 45517888 Active 2023 KELLEN CHANDRA MD [address], [place], [address] , [place] - [facility] 4 11:00:46 Bilateral temporoma ndibular joint disorder [id number] 769651 Active 2024 KELLEN CHANDRA MD [address] [facility], [place], [address] , [place] - [facility] 5 13:29:33 Bilateral tendernes s of temporoma ndibular joints 67525890832 367462 Active 2024 KELLEN CHANDRA MD [address], [place], [address] , [place] - [facility] 5 13:29:52 Problem Notes None recorded. Procedures Surgical History Date Name Laterality Status Provider Name and Address Organization Details Recorded Time 08/25/2024 NasalEndos copy_DP completed KELLEN CHANDRA MD [facility] [address], [place], [address], [place] - [facility] 08/25/2024 10:58:36 Imaging Results None recorded. Procedure Notes None recorded. Medical Equipment None Reported. Allergies Allergen ID Allergen Name Allergen Category Reaction Reaction Severity Criticality Documentation Date Start Date Code Code System Note Provider Name and Address Organization Details Recorded Time 000170 lorazepam medicatio n other Not available Not available 04/08/2024 6470 RxNorm React ion: unkno wn, unspe cifie d;; Not Available [facility] 4 01:11:29 165889 Fiorinal medicatio n other Not available Not available 04/08/2024 14486 RxNorm React ion: unkno wn, unspe cifie d;; Not Available [facility] 4 01:11:30 945895 doxycycli ne hyclate medicatio n other Not available Not available 04/08/2024 44769 RxNorm React ion: unkno wn, unspe cifie d;; Karon hinojosa [place] - [facility] 4 10:47:52 186469 morphine medicatio n other Not available Not available 04/08/2024 7052 RxNorm React ion: unkno wn, unspe cifie d;; Not Available [facility] 4 01:11:33 304000 naproxen medicatio n other Not available Not available 04/08/2024 7258 RxNorm React ion: unkno wn, unspe cifie d;; Not Available [facility] 4 01:11:35 Medications Name Sig Start Date Stop Date Status Note LastModified by Organization Details LastModified Time cyclobenz aprine 10 mg tablet TAKE 1 TABLET BY MOUTH THREE TIMES DAILY NEEDED FOR MUSCLE PAIN OR SPASM active Not Available Not Available No t Available atorvasta tin 40 mg tablet TAKE 1 TABLET DAILY active Not Available Not Available No t Available nystatin 100,000 unit/mL oral suspensio n by mouth 08/25 completed Medicati on ID: [id number] P rescribe d By Name: EVE Trujillo nd Name: nystatin Send Method: E-Prescr ibed Sub s Allowed: subs OK Speci al Instruct ion: 5 ml swish and spit four times daily x 2-4 weeks Me dication GenericN lorrie: nystatin Not Available Not Available Not Available atenolol 100 mg-chlort halidone 25 mg tablet TAKE 1 TABLET DAILY active Not Available Not Available No t Available atorvasta tin 20 mg tablet 04/08 completed Medicati on ID: [id number] Du ration Value: 30 Reason: () Brand Name: atorvast atin Sen d Method: E-Prescr ibed Sub s Allowed: subs OK Medic ationGen ericName : atorvast atin Not Available Not Available Not Available atorvasta tin 10 mg tablet 08/25 completed Not Available Not Available Not Available azithromy yovany 250 mg tablet TAKE DIRECTED ON PACKAGE active Not Available Not Available No t Available penicilli n V potassium 500 mg tablet TAKE 1 TABLET BY MOUTH TWICE DAILY FOR 10 DAYS 08/21 completed Not Available Not Available Not Available omeprazol e 40 mg capsule,d elayed release 04/08 completed Medicati on ID: [id number] Du ration Value: 15 Reason: () Brand Name: omeprazo le Send Method: E-Prescr ibed Sub s Allowed: subs OK Medic ationGen ericName : omeprazo le Not Available Not Available Not Available TobraDex 0.3 %-0.1 % eye ointment APPLY IN RIGHT EYE THREE TIMES DAILY FOR 1 WEEK THEN EVERY DAY FOR 1 WEEK THEN STOP 08/21 completed Not Available Not Available Not Available spironola ctone 25 mg tablet TAKE 1 TABLET DAILY active Not Available Not Available No t Available ketorolac 10 mg tablet TAKE 10 MG BY MOUTH EVERY 6 HOURS NEEDED FOR PAIN active Not Available Not Available No t Available hydrocort isone 2.5 % topical cream with perineal applicato r APPLY A SMALL AMOUNT TWICE DAILY 08/25 completed Not Available Not Available Not Available amoxicill in 875 mg tablet TAKE 1 TABLET BY MOUTH TWICE DAILY UNTIL FINISHED 08/21 completed Not Available Not Available Not Available benzonata te 100 mg capsule TAKE 1 CAPSULE BY MOUTH THREE TIMES DAILY FOR 10 DAYS active Not Available Not Available No t Available cephalexi n 500 mg capsule TAKE 1 CAPSULE BY MOUTH EVERY 8 HOURS FOR 7 DAYS 08/25 completed Not Available Not Available Not Available neomycin- polymyxin -dexameth 3.5 mg/mL-10, 000 unit/mL-0 .1% eye drops SHAKE LIQUID AND INSTILL 1 DROP IN RIGHT EYE THREE TIMES DAILY FOR 5 TO 7 DAYS 08/25 completed Not Available Not Available Not Available prednison e 50 mg tablet TAKE 1 TABLET BY MOUTH DAILY FOR 5 DAYS active Not Available Not Available No t Available omeprazol e 20 mg capsule,d elayed release active Not Available Not Available Not Available zinc 50 mg tablet 04/08 completed Medicati on ID: [id number] Re ason: () Brand Name: zinc Sen d Method: E-Prescr ibed Sub s Allowed: subs OK Medic ationGen ericName : zinc Not Available Not Available Not Available bisacodyl 5 mg tablet,de layed release TAKE 2 TABLETS BY MOUTH RIGHT BEFORE BEGINNIN G BOWEL PREP 09/11 completed Not Available Not Available Not Available magnesium 250 mg tablet 04/08 completed Medicati on ID: [id number] Re ason: () Brand Name: pia alonso Send Method: E-Prescr ibed Sub s Allowed: subs OK Medic ationGen ericName : elieceru m Not Available Not Available Not Available ondansetr on 4 mg disintegr ating tablet DISSOLVE 1 TABLET ON THE TONGUE EVERY 8 HOURS NEEDED FOR NAUSEA OR VOMITING active Not Available Not Available No t Available losartan 100 mg tablet 08/25 completed Medicati on ID: [id number] D uration Value: 90 Brand Name: losartan Send Method: E-Prescr ibed Sub s Allowed: subs OK Speci al Instruct ion: TK 1 T PO D Medica tionGene ricName: losartan Not Available Not Available Not Available dicyclomi ne 10 mg capsule active Not Available Not Available Not Available amoxicill [...] mg) tablet 04/08 completed Medicati on ID: [id number] Re ason: () Brand Name: Calcium 500 Send Method: E-Prescr ibed Sub s Allowed: subs OK Medic ationGen ericName : Calcium 500 Not Available Not Available Not Available peg 3350-elec trolytes 236 gram-22.7 4 gram-6.74 gram-5.86 gram solution STARTING AT 2PM THE NIGHT BEFORE PROCEDUR E DRINK 8OZ GLASSES BY MOUTH UNTIL 1ST HALF IS GONE DRINK 2ND HALF AT 8PM 09/11 completed Not Available Not Available Not Available mag oxide-D3- turmeric rt xt 04/08 completed Medicati on ID: [id number] Re ason: () Brand Name: mag oxide-d3 -turmeri c rt xt Send Method: E-Prescr ibed Sub s Allowed: subs OK Medic ationGen ericName : mag oxide-d3 -turmeri c rt xt Not Available Not Available Not Available Vitals Date Recorded Body weight Provider Name an d Address Organization Details Last Updated DateTime 09/11/2025 38590.4 g ELMIRA RECINOS [place] - [facility] 09/11/2025 13:19:20 Social History None recorded. Functional Status None recorded. Mental Status None recorded. Family History Nothing Reported. Medical History No medical history recorded. Gynecological HistoryNo gynecological history recorded. Obstetrics History GPAL:G 0 P 0 0 0 0 Past Encounters Encounter ID Performer Location Encounter Start Date Encounter Closed Date Diagnosis/Indication Diagnosis SNOMED-CT Code Diagnosis ICD10 Code Diagnosis IMO Codes Diagnosis Note [id number] KELLEN CHANDRA MD [facility] [address] [place] [address] 09/11/2025 13:05:17 09/11/2025 13:33:04 Bilateral tenderness of temporomandibular joints [id number] 9780382 M26.623 2496381845 Allergic rhinitis 480624 04 J30.89 offered allergy testing and immunother apy but she declined at this time Health Concerns Section Related Observation LastModified by Organization Detai ls LastModified Time None Recorded Concern Status LastModified by Organization Details LastModified Time None Recorded Payers Encounter Date Sequence Insurance Name Policy Number Policy Lira Covered Member ID Lira Member ID Guarantor Name 09/11/2025 1 [facility]: MEDICARE PPO BLUE (MEDICARE REPLACEMENT PPO) [id number] Stephanie Branham [id number] Stephanie Branham Notes Date Note Type Note Provider Name and Address Organization Details Recorded Time 09/11/2025 text/html ear pressure PV 07/19/21 Azucena Botello - allergic rhinitis, TMJ, thrush - tx with nystatin PV 08/25/24 Ld TEODORO, rec cont use CPAP, nasal endo septum to right topical nasal steroid with minimal relief TEODORO - on CPAP every night allergic rhinitis Stephanie Branham is a 64-year-old female who presents for bilateral ear discomfort. She reports constant pressure in her ears, tenderness, and ringing that has been ongoing for approximately one year. She denies recent air travel but notes a history of pneumonia. She has not experienced changes in hearing and denies any history of ear surgery. She has a history of allergies, including sensitivity to trees, pine, grass, pollen, and other environmental allergens, which are particularly severe during the fall season. She has undergone allergy testing in the past and reports difficulty tolerating allergy medications due to side effects. She also has a history of fibromyalgia and sleep apnea. She previously used a custom-made bite guard for teeth grinding but discontinued its use in 2019 after starting a sleep apnea mask. She reports tenderness around the jawline and denies any dental issues or dietary changes. KELLEN CHANDRA MD [address] [place] [address], [place], [address], [facility] - [facility] 09/11/2025 13:31:37 OBGyn Episode No OBEpisode recorded.
--- OUTSIDE RECORDS SUMMARY | 2025-11-13 03:36 | XMS_ITS | Data Portability ---
Author Organization [place] - [facility], Allergy Address [address] [place] [id number] Care Team Providers Care Cupola Charger Name Role Phone THOMASCHYNA Dubose Primary Care Provider Assessment Encounter Date Assessment [...] is updated [email or web address] Not available 08/25/2024 11:02:04 09/11/2025 09/11/2025 The patient is experiencing bilateral [...] By Organization Details Last Modified Time 09/11/2025 00424 - Apply warm compresses to the jaw [...] Details Recorded Time Otalgia of right ear 5499133748 Active 2014 Otalgia, right ear; Note: Date Diagnosed : 5 10:09 AM (H92.01) Not Available [facility] 4 02:57:23 Temporoma ndibular joint disorder 38778636 Active 2014 Temporoma ndibular joint disorder, unspecifi ed; Note: Date Diagnosed : 5 10:09 AM (M26.60) Not Available [facility] 4 02:57:22 Mass of neck 860725397 Active 2014 Localized swelling, mass and lump, neck; Note: Date Diagnosed : 5 10:09 AM (R22.1) Not Available [facility] 4 02:57:21 Neck swelling 936930192 Active 2014 Localized swelling, mass and lump, neck; Note: Date Diagnosed : 5 10:09 AM (R22.1) Not Available [facility] 4 02:57:21 Epidermoi d cyst 269132811 Active 2019 Epidermal cyst; Note: Date Diagnosed : 04/08/2020 2:09 PM (L72.0) Not Available [facility] 4 02:57:21 Allergic rhinitis 63262627 Active 2020 Other allergic rhinitis; Note: Date Diagnosed : 03/03/2021 12:36 PM (J30.89) Not Available [facility] 4 02:57:22 Stomatiti s 17642177 Active 2020 Oral thrush; Note: Date Diagnosed : 07/19/2021 12:36 PM (B37.0) Not Available [facility] 4 02:57:23 Candidias is of mouth 13266607 Active 2020 Oral thrush; Note: Date Diagnosed : 07/19/2021 12:36 PM (B37.0) Not Available [facility] 4 02:57:23 Deviated nasal septum 177222121 Active 2023 KELLEN CHANDRA MD [address] [place] [address],[place] [address], [place], [phone] , [place] - [facility] 4 10:59:43 Hypertrop hy of nasal turbinate s 01568397 Active 2023 KELLEN CHANDRA MD [address] [place] [address],[place] [address], [place], [phone] , [place] - [facility] 4 11:00:10 Obstructi ve sleep apnea syndrome 22181276 Active 2023 KELLEN CHANDRA MD [address] [place] [address],[place] [address], [place], [address] , [place] - [facility] 4 11:00:46 Bilateral temporoma ndibular joint disorder 34845810106 220955 Active 2024 KELLEN CHANDRA MD [address] [place] [address],[place] [address], [place], [phone] , [facility] 5 13:29:33 Bilateral tendernes s of temporoma ndibular joints 93569774209 844681 Active 2024 KELLEN CHANDRA MD [address] [facility] [place] [address], [place], [phone] , [facility] 5 13:29:52 Problem Notes None recorded. Procedures Surgical History Date Name Laterality Status Provider Name and Address Organization Details Recorded Time 08/25/2024 NasalEndos copy_DP completed KELLEN CHANDRA MD [address] [facility],[place] [address], [place], [phone], [facility] 08/25/2024 10:58:36 Imaging Results None recorded. Procedure Notes None recorded. Medical Equipment None Reported. Allergies Allergen ID Allergen Name Allergen Category Reaction Reaction Severity Criticality Documentation Date Start Date Code Code System Note Provider Name and Address Organization Details Recorded Time 006206 lorazepam medicatio n other Not available Not available 04/08/2024 6470 RxNorm React ion: unkno wn, unspe cifie d;; Not Available [facility] 4 01:11:29 645542 Fiorinal medicatio n other Not available Not available 04/08/2024 48612 RxNorm React ion: unkno wn, unspe cifie d;; Not Available [facility] 4 01:11:30 686200 doxycycli ne hyclate medicatio n other Not available Not available 04/08/2024 14108 RxNorm React ion: unkno wn, unspe cifie d;; Karon hinojosa [facility] 4 10:47:52 544943 morphine medicatio n other Not available Not available 04/08/2024 7052 RxNorm React ion: unkno wn, unspe cifie d;; Not Available [facility] 4 01:11:33 493002 naproxen medicatio n other Not available Not available 04/08/2024 7258 RxNorm React ion: unkno wn, unspe cifie d;; Not Available [facility] 4 01:11:35 Medications Name Sig Start Date [...] by mouth 08/25 completed Medicati on ID: [id number] P rescribe d By Name: EVE Trujillo [...] mg tablet 04/08 completed Medicati on ID: [id number] Du ration Value: 30 Reason: () Brand [...] elayed release 04/08 completed Medicati on ID: [id number] Du ration Value: 15 Reason: () Brand [...] mg tablet 04/08 completed Medicati on ID: [id number] Re ason: () Brand Name: zinc Sen d Method: E-Prescr ibed Sub s Allowed: subs OK Medic ationGen ericName : zinc Not Available Not Available Not Available bisacodyl 5 mg tablet,de layed release TAKE 2 TABLETS BY MOUTH RIGHT BEFORE BEGINNIN G BOWEL PREP 09/11 completed Not Available Not Available Not Available magnesium 250 mg tablet 04/08 completed Medicati on ID: [id number] Re ason: () Brand Name: magnesiu m Send Method: E-Prescr ibed Sub s Allowed: subs OK Medic ationGen ericName : magnesiu m Not Available Not Available Not Available ondansetr on 4 mg disintegr ating tablet DISSOLVE 1 TABLET ON THE TONGUE EVERY 8 HOURS NEEDED FOR NAUSEA OR VOMITING active Not Available Not Available No t Available losartan 100 mg tablet 08/25 completed Medicati on ID: [id number] D uration Value: 90 Brand Name: losartan [...] mg) tablet 04/08 completed Medicati on ID: [id number] Re ason: () Brand Name: Calcium 500 [...] rt xt 04/08 completed Medicati on ID: [id number] Re ason: () Brand Name: mag oxide-d3 -turmeri c rt xt Send Method: E-Prescr ibed Sub s Allowed: subs OK Medic ationGen ericName : mag oxide-d3 -turmeri c rt xt Not Available Not Available Not Available Vitals Date Recorded Body height Body mass index (BMI) Body weight Provider Name and Address Organization Details Last Updated DateTime 08/25/2024 166.37 cm 36.1 kg/m2 54393.32 g Karon Toribio [place] - [facility] 08/25/2024 10:47:42 Date Recorded Body weight Provider Name an d Address Organization Details Last Updated DateTime 09/11/2025 48374.4 g ELMIRA RECINOS [place] - [facility] 09/11/2025 13:19:20 Social History None recorded. Functional Status None recorded. Mental Status None recorded. Family History Nothing Reported. Medical History No medical history recorded. Gynecological HistoryNo gynecological history recorded. Obstetrics History GPAL:G 0 P 0 0 0 0 Past Encounters Encounter ID Performer Location Encounter Start Date Encounter Closed Date Diagnosis/Indication Diagnosis SNOMED-CT Code Diagnosis ICD10 Code Diagnosis IMO Codes Diagnosis Note [id number] KELLEN CHANDRA MD [facility] [address] [address] 08/25/2024 09:55:26 08/25/2024 11:01:16 Deviated nasal septum 264958615 J34.2 Hypertroph y of nasal turbinates 61393083 J34.3 Obstructiv e sleep apnea syndrome 55739401 G47.33 [id number] KELLEN CHANDRA MD [facility] [address] [address] 09/11/2025 13:05:17 09/11/2025 13:33:04 Bilateral tenderness of temporomandibular joints 3452791352 8157172 M26.623 3989688502 Allergic rhinitis 052752 04 J30.89 offered allergy testing and immunother apy but she declined at this time Health Concerns Section Related Observation LastModified by Organization Detai ls LastModified Time None Recorded Concern Status LastModified by Organization Details LastModified Time None Recorded Advance Directives Directive None Recorded Payers Insurance Date Sequence Insurance Name Policy Number Policy Lira Covered Member ID Lira Member ID Guarantor Name 09/11/2025 2 [facility] [id number] Stephanie Armenta L Carrol [id number] Stephanie Geovany Carrol 09/11/2025 1 [place]MED[place] PPO) [id number] Stephanie Geovany Carrol [id number] Stephanie Geovany Carrol 09/11/2025 2 [place] Stephanie Barnham [id number] Stephanie Branham 09/11/2025 1 [place] [facility] Stephanie Branham [id number] Stephanie Branham Notes Date Note Type Note Provider Name and Address Organization Details Recorded Time 08/25/2024 text/html ROS as noted in the HPI Patient of Dr Farnsworthnasal congestiondeviated septumtopical nasal steroid with minimal relief partial tear of right achilles last month TEODORO - on CPAP every nightallergic rhinitis PV 07/19/21 Azucena Botello - allergic rhinitis, TMJ, thrush - tx with nystatin KELLEN CHANDRA MD [address] [facility],[address], [address], [place] - [facility] 08/25/2024 11:02:27 09/11/2025 text/html ear pressure PV 07/19/21 Azucena [...] issues or dietary changes. KELLEN CHANDRA MD [address] [facility] [place] [address], [place], [address], [facility] - [facility] 09/11/2025 13:31:37 OBGyn Episode No OBEpisode recorded.
--- NOTE | 2025-11-13 04:57 | ED.GENADULT ---
HPI - General Adult General Chief complaint: General Medical Stated complaint: R Hip Pain No Injury Time Seen by Provider: 11/13/25 04:46 Source: patient Mode of arrival: ambulatory Limitations: no limitations History of Present Illness ED Provider: Dr. Alla Brink HPI narrative: patient comes to the emergency room complaining of right lower quadrant pain. Patient states that she believes is her hip that is hurting, patient states that she has history of fibromyalgia and is often she has intense muscle spasms. Patient denies any recent injury, no heavy lifting. Patient states that it is an intermittent pain radiating towards the groin area. Patient denies hematuria or dysuria, denies flank pain, denies any significant abdominal pain , other than and lateralize right lower quadrant pain, mostly in the hip area. Patient states that she has history of appendectomy and oophorectomy on the right side. Related Data Home Medications ?Medication ?Instructions ?Recorded ?Confirmed spironolactone 25 mg tablet 25 mg PO DAILY 07/24/23 12/30/24 atenolol 100 mg-chlorthalidone 25 1 tab PO DAILY 12/25/23 12/30/24 mg tablet atorvastatin 10 mg tablet 40 mg PO DAILY 12/30/24 12/30/24 Previous Rx's ?Medication ?Instructions ?Recorded cyclobenzaprine 5 mg tablet 5 mg PO TID PRN muscle spasm #15 11/13/25 tabs ketorolac 10 mg tablet 10 mg PO Q8H #15 tabs 11/13/25 Allergies Allergy/AdvReac Type Severity Reaction Status Date / Time butalbital (From FIORINAL) Allergy Unknown HIVES Verified 11/13/25 03:27 doxycycline (DOXYCYCLINE) Allergy Unknown HIVES Verified 11/13/25 03:27 lorazepam (From ATIVAN) Allergy Unknown HIVES Verified 11/13/25 03:27 morphine (MORPHINE) Allergy Unknown HIVES Verified 11/13/25 03:27 Penicillins Allergy Gastrointestinal Verified 11/13/25 03:27 Upset Doxycycline Calcium Allergy Unknown Hives Uncoded 11/13/25 03:27 Review of Systems Review of Systems: Constitutional : No Weight loss, No Fever, No Chills, No Night Sweats, No Fatigue, No Malaise ENT/Mouth : No Hearing loss, No Ear Pain, No Nasal Congestion, No Sinus Pain, No Hoarseness, No sore throat, No Rhinorrhea, No Swallowing Difficulty Eyes: No Eye Pain, No Swelling, No Redness, No Foreign Body, No Discharge, No Vision Changes Cardiovascular : No Chest Pain, No SOB, No Dyspnea on Exertion, No Orthopnea, No Edema, No Palpitations Respiratory : No Cough, No Sputum, No Wheezing, No Smoke Exposure, No Dyspnea Gastrointestinal : No Nausea, No Vomiting, No Diarrhea, No Constipation, No abdominal Pain, No Hematochezia, No Melena Genitourinary : no irregular bleeding, No Dysuria, No Urinary Frequency, No Hematuria, No Urinary Incontinence, No Urgency, No Flank Pain, No Urinary Flow Changes, No Hesitancy Musculoskeletal : No joint pain, No Myalgias, No Joint Swelling Skin : No Skin Lesions, No rash Neuro : No Weakness, No Numbness, No Paresthesias, No Loss of Consciousness, No Dizziness, No Headache Psych : No Anxiety/Panic, No Depression, No SI/HI/AH/VH, No Social Issues, Heme/Lymph: No Bruising, No Bleeding,No Lymphadenopathy Endocrine : No Polyuria, No Polydipsia, No Temperature Intolerance PMFSH Past Medical History Medical History Coronary artery calcification seen on CT scan Fibromyalgia HTN (hypertension) Sleep apnea IBS (irritable bowel syndrome) Surgical History Hx of hand surgery Hx of hysterectomy Family History Family History Mother Afib Father S/P quintuple vessel bypass Brother Afib Social History Social History Alcohol intake: never Patient Tobacco Use Status: Never used Tobacco Smoked in Last 30 Days: No Use of substances other than those prescribed or required for medical reasons: No Substance Use Type: Marijuana Advance Directives: No Advance Directives Information Provided: No Physical Exam ED Exam Exam: Appearance: Alert. Oriented X3. No acute distress. Eyes: Pupils equal, round and reactive to light. ENT: Pharynx normal. Neck: Normal inspection. Neck supple. No lymph nodes noted. No crepitus CVS: Normal heart rate and rhythm. Pulses normal. Normal S1 and S2 Respiratory: No respiratory distress. Breath sounds normal. No Wheezing. No rales Abdomen: Soft , patient's seemed to have a bit of pain in the right lower quadrant. However, seems to be more in the hip. Patient is able to flex and extend the hip with no pain. However, palpation she does have some pain, no rebound or guarding Skin: Skin warm and dry. Normal skin color. Normal skin turgor. Extremities: No lower extremity edema. No Lacerations. No Rash Neuro: Oriented X 3. No motor deficit. No sensory deficit. Moving all extremities. No slurred speech. CN 2 through 12 grossly intact Psych: calm, cooperative, normal affect Vital Signs: Vital Signs - 24 hr 11/13/25 03:25 11/13/25 06:01 11/13/25 07:24 Temperature 98.6 F 97.9 F 98.1 F Pulse Rate 73 58 54 Respiratory Rate 22 H 13 18 Blood Pressure 104/65 100/53 L 111/59 L Pulse Oximetry 94 91 L 97 Oxygen Delivery Method Room Air Room Air Room Air BMI result Body Mass Index 34.9 Course Course Course Narrative: all of patient's labs pending patient reports having right hip pain, atraumatic. However, on physical exam patient did have pain to palpation on the right lower quadrant. We will proceed with a CT scan. Patient has anaphylaxis to morphine medications. Patient was given IV ketorolac and cyclobenzaprine. Patient states that Ativan makes her hallucinate I was informed by the patient's nurse that it was difficult to get an IV and patient refuses to get poked anymore even with ultrasound. We will proceed with a CAT scan without contrast Reevaluation(s) Reevaluation #1: [id number] Dixie Sanders PA-C ---> Received this patient on sign out from Dr. Brink pending a UA result. Patient's urine does not appear grossly infected. Patient cleared for discharge. Medications Administered Discontinued Medications Generic Name Dose Route Start Last Admin Trade Name Freq PRN Reason Stop Dose Admin Cyclobenzaprine HCl 10 mg 11/13/25 04:56 11/13/25 05:16 Cyclobenzaprine Hcl 10 Mg Tablet PO 11/13/25 04:57 10 mg ONCE ONE Administration Ketorolac Tromethamine 30 mg 11/13/25 04:56 11/13/25 05:15 Ketorolac Tromethamine 30 Mg/Ml Vial IVPUSH 11/13/25 04:57 30 mg ONCE ONE Administration Medical Decision Making Medical Decision Making [facility] Narrative: My interpretation of labs: No significant abnormality in patient's hematology and chemistry, no significant changes in patient's LFTs, lipase within normal limits CT scan of the abdomen pelvis does not show any acute process. Patient has a nonobstructing 2 mm right renal calculus, unlikely that the patient has pain from this stone in the kidney. however, it is possible that patient may have had a kidney stone and already passed it? Also, it is possible the patient may be experiencing cramps, which she has a before. patient states that with the ketorolac in the cyclobenzaprine, she feels 100% back to normal pending: Urinalysis Differential Diagnosis Differential Diagnoses: The differential diagnosis associated with the presentation includes ( UTI, pyelonephritis, renal colic, ureterolithiasis, muscle cramps) Admission/Observation Consideration of admission/observation: Escalation of care including admission/observation considered Lab Data [facility] Lab Attestation statement: I reviewed the patient's lab results. 11/13/25 05:07 11/13/25 05:07 Labs: Lab Results 11/13/25 11/13/25 Range/Units 05:07 07:53 WBC 5.5 (4.8-10.8) X10*3/uL RBC 4.35 (4.20-5.50) X10*6/uL Hgb 13.4 (12.0-16.0) g/dl Hct 38.5 (37.0-47.0) % MCV 88.5 (80.0-98.0) fL MCH 30.8 (27.0-33.0) pg MCHC 34.8 (31.0-35.0) g/dl RDW 13.2 (11.0-16.0) % Plt Count 199 (160-400) X10*3/uL MPV 9.2 L (9.4-12.3) fL Immature Gran % (Auto) 0.5 H (0.0-0.4) % Neut % (Auto) 45.5 (45-73) % Lymph % (Auto) 30.0 (20-40) % [place] % (Auto) 21.9 H (2-11) % Eos % (Auto) 1.4 (0-4) % Baso % (Auto) 0.7 (0-2) % Lymph # (Auto) 1.7 (1.2-4.9) X10*3/uL [place] # (Auto) 1.2 (0.1-1.2) X10*3/uL Eos # (Auto) 0.1 (0.0-0.4) X10*3/uL Baso # (Auto) 0.0 (0.0-0.2) X10*3/uL Abs Immat Gran (auto) 0.03 (0.00-0.03) X10*3/uL Absolute Neuts (auto) 2.5 (2.0-8.3) x10*3/uL Absolute Nucleated RBC 0.000 (0.0-0.012) X10*3/uL Nucleated RBC % (auto) 0.0 (0.0-0.2) /100WBC Sodium 138 (135-145) mmol/L Potassium 3.6 (3.3-5.1) mmol/L Chloride 105 (96-108) mmol/L Carbon Dioxide 21 L (22-29) mmol/L Anion Gap 16 (12-20) BUN 19 H (9-16) mg/dL Creatinine 0.81 (0.5-1.4) mg/dL Estim Creat Clear Calc 76.9 Estimated GFR > 60 Random Glucose 109 (60-115) mg/dL Calcium 9.5 D (8.4-10.2) mg/dL Total Bilirubin 0.7 (0.0-1.0) mg/dL AST 35 H (5-31) U/L ALT 42 H (0-31) U/L Alkaline Phosphatase 77 (39-117) U/L Total Protein 6.6 (6.5-8.0) g/dL Albumin 4.1 (3.5-5.0) g/dL Lipase 7 L (8-78) U/L Urine Color Yellow Urine Appearance Cloudy Urine pH 6.5 (5.0-9.0) Ur Specific [place] 1.020 (1.005-1.025) Urine Protein Negative (Neg-Trace) mg/dL Urine Glucose (UA) Negative (Negative) mg/dL Urine Ketones Negative (Negative) mg/dL Urine Blood Negative (Negative) Urine Nitrite Negative (Negative) Ur Leukocyte Esterase Moderate (2+) H (Negative) Urine RBC 0-2 (0-2) /HPF Urine WBC 0-5 (0-5) /HPF Ur Squamous Epith Cells 3-5 (0-2) /HPF Urine Bacteria Trace (None Seen) Hyaline Casts 3-5 (0-2) /LPF Independent Interpretation I performed an independent interpretation of an: CT Scan Radiology Impression Discussion of test interpretation with radiology: I have reviewed the radiologist's reading. Radiologist Impression: No consolidation or effusion. There is severe atherosclerotic disease of the coronary arteries. The unenhanced liver, gallbladder, spleen, adrenal glands and pancreas are unremarkable. 3 mm nonobstructing right-sided lower pole calculus. No obstructive uropathy bilaterally. The bladder is partially distended without focal abnormality. No bowel obstruction or free air. Mild colonic fecal retention. No free fluid, abscess or significant adenopathy. Diffuse atherosclerotic disease, moderately severe. No acute osseous finding. Degenerative changes most pronounced at L5-S1. Impression: No definite acute process. Nonobstructing 3 mm right renal calculus. Critical Care Time Critical Care Time Critical Care Time: Yes Total Critical Care Time: 35 Attestation: I have personally provided critical care time. Time includes review of lab data, radiology results, discussion with consultants, and monitoring for potential decompensation. Intervention performed as documented. Discharge Plan Discharge Clinical Impression: Abdominal pain, right lower quadrant, Musculoskeletal pain Patient Disposition: Home, Self-Care Instructions: Musculoskeletal Pain (ED) Additional Instructions: Please follow-up with your primary care physician tomorrow. If you have any worsening or new symptoms, please return to the emergency room or call 911 Prescriptions: New ketorolac 10 mg tablet 10 mg PO Q8H Qty: 15 0RF Rx Instructions: maximum total duration of 5 days from all oral, intranasal, or parenteral formulations cyclobenzaprine 5 mg tablet 5 mg PO TID PRN (Reason: muscle spasm) Qty: 15 0RF No Action spironolactone 25 mg tablet 25 mg PO DAILY atorvastatin 10 mg tablet 40 mg PO DAILY atenolol-chlorthalidone 100-25 mg tablet 1 tab PO DAILY Print Language: Nicaraguan
[2025-11-13 05:12] LABS: Hematocrit 38.5 % (37.0-47.0); Hemoglobin 13.4 g/dl (12.0-16.0); Imm Gran Abs Auto 0.03 X10*3/uL (0.00-0.03); Imm Gran Pct Auto 0.5 % (0.0-0.4); Lymphocytes Absolute Auto 1.7 X10*3/uL (1.2-4.9); MANUAL DIFF FLAG NO; Mean Corpuscular HGB Conc 34.8 g/dl (31.0-35.0); Mean Corpuscular Hemoglobin 30.8 pg (27.0-33.0); Mean Corpuscular Volume 88.5 fL (80.0-98.0); NRBC Abs Auto 0.000 X10*3/uL (0.0-0.012); NRBC Pct Auto 0.0 /100WBC (0.0-0.2); Platelet Count 199 X10*3/uL (160-400); Red Blood Count 4.35 X10*6/uL (4.20-5.50); SCAN SMEAR FLAG 1; White Blood Count 5.5 X10*3/uL (4.8-10.8)
[2025-11-13 05:27] LABS: Alanine Aminotransferase 42 U/L (0-31); Albumin Level 4.1 g/dL (3.5-5.0); Alkaline Phosphatase 77 U/L (39-117); Anion Gap 16 (12-20); Aspartate Amino Transferase 35 U/L (5-31); Blood Urea Nitrogen 19 mg/dL (9-16); Calcium 9.5 mg/dL (8.4-10.2); Carbon Dioxide 21 mmol/L (22-29); Chloride 105 mmol/L (96-108); Creatinine Clr Calc Pharmacy 76.9; Estimated Glomerular Filt Rate > 60; Lipase 7 U/L (8-78); Potassium 3.6 mmol/L (3.3-5.1); Sodium 138 mmol/L (135-145); Total Protein 6.6 g/dL (6.5-8.0)
--- NOTE | 2025-11-13 05:32 | PC.NURSE ---
Iv placed in right hand, 22g, medicated per mar.
[2025-11-13 06:01] VITALS: BP 100/53; PULSE 58; RESP 13; TEMP 36.6; O2SAT 91
--- NOTE | 2025-11-13 07:15 | PC.NURSE ---
assumed care of patient, patient resting comfortably, with family at bedside NAD noted
[2025-11-13 07:24] VITALS: BP 111/59; PULSE 54; RESP 18; TEMP 36.7; O2SAT 97
[2025-11-13 07:59] LABS: Appearance Urine Cloudy; Glucose Urine UA Negative (Negative); PH 6.5 (5.0-9.0); Specific Gravity - Urine 1.020 (1.005-1.025); UMIC TRIGGER UACC YES
[2025-11-13 08:14] LABS: UACC Culture Trigger YES
[2025-11-13 08:41] VITALS: BP 111/59; PULSE 54; RESP 18; TEMP 36.7; O2SAT 97
== END 2025-11-13 08:41 | disposition home or self-care (01) ==
PROVIDERS: Emergency Provider Emergency Medicine; PCP Internal Medicine
DX: R10.31 Right lower quadrant pain (principal); M79.18 Myalgia, other site; N20.0 Calculus of kidney; I10 Essential (primary) hypertension; Z79.899 Other long term (current) drug therapy
CPT/HCPCS: 36415; 74176; 80053; 81001; 81003; 83690; 85025; 87086; 96374; 99284; J1885

== ENCOUNTER → 2025-11-13 05:06 | Outpatient (BNV) | payer MEDICARE, SELFPAY | PROVIDERS: Emergency Provider Emergency Medicine; PCP Internal Medicine; Visit Provider Radiology Vascular & Interventional Radiology | DX: N20.0 Calculus of kidney (principal); Z90.49 Acquired absence of other specified parts of digestive tract; Z90.722 Acquired absence of ovaries, bilateral | CPT/HCPCS: 74176 ==